=== PATIENT | female | born 1950 | race Hispanic/Latino ===

== ENCOUNTER 2018-08-17 10:23 | Inpatient (IN) | payer MEDICARE, OTHER ==
[2018-08-17] MEDS ORDERED: Sodium Chloride 0.9% 1,000 ML IV ONE (11:07)
[2018-08-17] MEDS ORDERED: Aspirin 325 mg EC Tablets PO STA (11:07)
[2018-08-17] MEDS ORDERED: Sodium Chloride 0.9% 1,000 ML ONE ×2 (11:20→13:50)
[2018-08-17] MEDS ORDERED: Aspirin 325 mg EC Tablets PO ONE (11:20)
[2018-08-17 11:21] LABS: BASO % 0.1 % (0.0-2.0); HEMOGLOBIN 13.9 g/dL (11.0-16.0); LYMPH # 1.2 K/uL (1.0-4.3); LYMPH % 8.5 % (20.0-40.0); MEAN CELL VOLUME 96.8 fL (81.0-99.0); MEAN CORPUSCULAR HEMOGLOBIN 33.3 pg (27.0-31.0); MEAN CORPUSCULAR HGB CONC 34.4 g/dL (33.0-37.0); MEAN PLATELET VOLUME 8.8 fL (7.2-11.7); MONO # 1.5 K/uL (0.0-0.8); MONO % 10.4 % (0.0-10.0); NEUT # 11.7 K/uL (1.8-7.0); PLATELET COUNT 287 K/uL (130-400); RBC 4.16 Mil/uL (3.80-5.20); RED CELL DISTRIBUTION WIDTH 12.9 % (11.5-14.5); WHITE BLOOD COUNT 14.4 K/uL (4.8-10.8)
--- NOTE | 2018-08-17 11:32 | RAD ---
Date of service: 08/17/2018 PROCEDURE: CHEST RADIOGRAPH, 1 VIEW HISTORY: chest pain COMPARISON: None available. FINDINGS: LUNGS: Clear. PLEURA: No pneumothorax or pleural fluid seen. CARDIOVASCULAR: Normal. OSSEOUS STRUCTURES: No significant abnormalities. VISUALIZED UPPER ABDOMEN: Normal. OTHER FINDINGS: None. IMPRESSION: No active disease.
[2018-08-17 11:35] LABS: INR 1.1; PROTHROMBIN TIME 11.7 SECONDS (9.7-12.2)
[2018-08-17 11:47] LABS: ALBUMIN 4.3 g/dL (3.5-5.0); EOSINOPHIL 1 % (0-4); LYMPHOCYTE 3 % (20-40); MONOCYTE 6 % (0-10); NEUTROPHIL 90 % (50-75); PLATELET ESTIMATE NORMAL (NORMAL); TOTAL CELLS COUNTED 100
[2018-08-17 11:52] LABS: CALCIUM 9.7 mg/dl (8.6-10.4)
[2018-08-17 12:04] LABS: SQUAMOUS EPITHIAL 47 /hpf (0-5); URINE BACTERIA RARE (<OCC); URINE BILIRUBIN NEGATIVE (NEGATIVE); URINE BLOOD 1+ (NEGATIVE); URINE CLARITY Hazy (Clear); URINE COLOR Amber (YELLOW); URINE GLUCOSE (UA) NORMAL (Normal); URINE LEUKOCYTE ESTERASE NEG Leu/uL (Negative); URINE PROTEIN 1+ mg/dL (NEGATIVE); URINE UROBILINOGEN NORMAL mg/dL (0.2-1.0)
[2018-08-17 12:18] LABS: CK-MB 9.38 ng/mL (0.0-3.38)
--- NOTE | 2018-08-17 12:31 | C.PDOC ---
History Of Present Illness 68 year old female presents to the ED for evaluation of right-sided chest pain for 4 days and associated lightheadedness. Patient notes feeling lightheaded for one week, she saw PMD Dr. Garcia, had an EKG with a low heart rate of 38 bpm. Sent by PMD to the ER. Denies fever, nausea, vomiting, and numbness or weakness. Time Seen by Provider: 08/17/18 10:39 Chief Complaint (Nursing): Dizziness/Lightheaded History Per: Patient History/Exam Limitations: no limitations Onset/Duration Of Symptoms: Days Current Symptoms Are (Timing): Still Present Past Medical History Reviewed: Historical Data, Nursing Documentation, Vital Signs Vital Signs: Last Vital Signs Temp 98.8 F 08/17/18 10:39 Pulse 47 L 08/17/18 10:39 Resp 16 08/17/18 10:39 BP 139/60 08/17/18 10:39 Pulse Ox 96 08/17/18 10:39 - Medical History PMH: HTN Denies: Chronic Kidney Disease Family History: States: Unknown Family Hx - Social History Hx Alcohol Use: No Hx Substance Use: No - Immunization History Hx Tetanus Toxoid Vaccination: No Hx Influenza Vaccination: Yes Hx Pneumococcal Vaccination: No Review Of Systems Constitutional: Negative for: Fever Cardiovascular: Positive for: Chest Pain (right-sided.) Gastrointestinal: Negative for: Nausea, Vomiting Neurological: Positive for: Other (light-headed.) Physical Exam - Physical Exam Appears: Well, Non-toxic, Other (pale. elderly.) Skin: Normal Color, Warm, Dry Head: Atraumatic, Normacephalic Eye(s): bilateral: Normal Inspection Oral Mucosa: Moist Neck: Normal ROM, Supple Chest: Symmetrical, No Deformity, No Tenderness, No Subcutaneous Emphysema Cardiovascular: Rhythm Regular, No Murmur, Other (bradycardia) Respiratory: Normal Breath Sounds, Decreased Breath Sounds, No Rales, No Rhonchi, No Wheezing Extremity: Normal ROM (x4), No Pedal Edema, No Deformity, No Swelling Neurological/Psych: Oriented x3, Normal Speech Gait: Steady ED Course And Treatment - Laboratory Results Result Diagrams: 08/17/18 11:17 08/17/18 11:17 ECG: Interpreted By Me, Viewed By Me (Dr Flores) ECG Rhythm: Junctional Rhythm ECG Interpretation: Abnormal Rate From EC (no priors for comparison) O2 Sat by Pulse Oximetry: 96 (RA) Pulse Ox Interpretation: Normal - Other Rad CXR X-Ray: Viewed By Me, Read By Radiologist Interpretation: FINDINGS: LUNGS: Clear. PLEURA: No pneumothorax or pleural fluid seen. CARDIOVASCULAR: Normal. OSSEOUS STRUCTURES: No significant abn ormalities. VISUALIZED UPPER ABDOMEN: Normal. OTHER FINDINGS: None. IMPRESSION: No active disease. Medical Decision Making Medical Decision Making: Impression: chest pain, bradycardia symptomatic Plan: --Blood sent. --Ecotrin. --CXR. --Cardia Monitor. --Urinalysis. case reviewed with Dr Flores who agreed with plan EKG shows junctional rhythm. CXR shows no active disease. 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 Labs pending Lab reports critical value of elevated troponin >8. Inform attending of finding who advised ICU and admission Contact Dr Glass, hospitalist for admission. Contact Dr Last ICU for consult. 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 - Scribe Statement The provider has reviewed the documentation as recorded by the Scribe (Betsy Carrion) All medical record entries made by the Scribe were at my direction and personally dictated by me. I have reviewed the chart and agree that the record accurately reflects my personal performance of the history, physical exam, medical decision making, and the department course for this patient. I have also personally directed, reviewed, and agree with the discharge instructions and disposition. Decision To Admit - Pt Status Changed To: Hospital Disposition Of: Inpatient - Admit Certification Admit to Inpatient:: After my assessment, the patient will require hospitalization for at least two midnights. This is because of the severity of symptoms shown, intensity of services needed, and/or the medical risk in this patient being treated as an outpatient. - InPatient: Physician Admission Certification: I certify that this patient requires 2 or more midnights of care for the following reason:: patient with several days of chest pain and now has symptomatic bradycardia. labs and findings consistent with NSTEMI - . Bed Request Type: Telemetry Admitting Physician: Victor Hugo Glass Patient Diagnosis: Bradycardia, Chest pain, NSTEMI (non-ST elevated myocardial infarction)
[2018-08-17 12:45] LABS: ALB/GLOB RATIO 1.4 (1.0-2.1)
[2018-08-17 13:03] LABS: TROPONIN I 8.31 ng/mL (0.00-0.120)
[2018-08-17] MEDS ORDERED: Heparin 25,000units in D5W 250 ML IV ONE ×2 (13:15→14:06)
[2018-08-17] MEDS ORDERED: Sodium Chloride 0.9% 1,000 ML IV SCH ×2 (13:45→14:05)
--- NOTE | 2018-08-17 14:31 | CP.PCM.HP ---
History of Present Illness - History of Present Illness History of Present Illness: Patient was seen and examined by me in the ER bed 10. Family member was at bedside, patient was ok with family participating in discussion. This is a 68 yo F who comes to the hospital with the chief complaint of chest pain, lightheadedness, and dizziness. The chest pain began on Wednesday08/13/2018 and by Wednesday she was having episodes of lightheadness and dizziness. Reportedly the patient was lifting heavy objects back and forth and she normally does not exert herself this much. This light headedness and dizzines continued into the week and she saw her primary care physician yesterday on 08/16/2018 where she had a 12-lead EKG showing very significant bradycardia. She was urged to go to the emergency room and she came today to [facility] and the EKG was in the mid 40s sinus bradycardia. There was signifigant T wave flattening noted. There was no ST depression or elevation. In the ER the first troponin was 8.1 and she was noted to have a systolic BP in the mid 90s. She was reporting chest pain however it was on her right chest near her right axilla and this was reproducible on exam. She was not reporting lightheaded or dizzy when I saw the patient but reported she was earlier in the day. We gave orders to start a heparin ggt, also Plavix 300 now and a large dose of Crestor 20 now. She had ASA 325 and also IVF @ 80 cc. We are getting a stat echo as well. At this time it seems to me she exerted/stressed herself quite a bit on Wednesday until she developed an ME and possibly the lightheadedness and dizziness is from having bradycardia or a low EF following the ME. Reguardless I spoke with ICU and cardiology Medications: Valsartan, Atenolol, HCTZ Social HX: Heavy smoker since age 14 - She could not give me a clear answer as to how many packs a day. Denied alcohol and denied drugs. Present on Admission - Present on Admission Any Indicators Present on Admission: Yes History of DVT/PE: No History of Uncontrolled Diabetes: No Urinary Catheter: No Decubitus Ulcer Present: No Review of Systems - EENT Eyes: absent: Blind Spots, Blurred Vision, Change in Vision Ears: absent: Decreased Hearing, Ear Discharge, Ear Pain - Cardiovascular Cardiovascular: Chest Pain, Chest Pain with Activity, Lightheadedness, Slow Heart Rate - Respiratory Respiratory: Dyspnea on Exertion - Gastrointestinal Gastrointestinal: absent: Abdominal Pain, Belching, Bloating - Genitourinary Genitourinary: absent: Change in Urinary Stream, Difficulty Urinating, Dysuria - Musculoskeletal Musculoskeletal: Radiating Pain into Limb - Neurological Neurological: absent: Abnormal Gait, Abnormal Hearing, Abnormal Movements - Psychiatric Psychiatric: absent: Anxiety, Auditory Hallucinations, Behavioral Changes Past Patient History - Past Social History Smoking Status: Heavy Smoker > 10 Cigarettes Daily - CARDIAC Hx Hypertension: Yes - PULMONARY Hx Respiratory Disorders: No - NEUROLOGICAL Hx Neurological Disorder: No - HEENT Hx HEENT Problems: No - RENAL Hx Chronic Kidney Disease: No - ENDOCRINE/METABOLIC Hx Endocrine Disorders: No - HEMATOLOGICAL/ONCOLOGICAL Hx Blood Disorders: No - INTEGUMENTARY Hx Dermatological Problems: No - MUSCULOSKELETAL/RHEUMATOLOGICAL Hx Musculoskeletal Disorders: No - GASTROINTESTINAL Hx Gastrointestinal Disorders: No - GENITOURINARY/GYNECOLOGICAL Hx Genitourinary Disorders: No - PSYCHIATRIC Hx Substance Use: No - SURGICAL HISTORY Hx Surgeries: No - ANESTHESIA Hx Anesthesia: No Meds Allergies/Adverse Reactions: Allergies Allergy/AdvReac Type Severity Reaction Status Date / Time No Known Allergies Allergy Verified 08/17/18 10:46 Physical Exam - Constitutional Appears: Older Than Stated Age - Head Exam Head Exam: NORMAL INSPECTION - Eye Exam Eye Exam: EOMI, Normal appearance - ENT Exam ENT Exam: Mucous Membranes Moist - Cardiovascular Exam Cardiovascular Exam: REGULAR RHYTHM - GI/Abdominal Exam GI & Abdominal Exam: Normal Bowel Sounds, Soft - Neurological Exam Neurological exam: Alert, CN II-XII Intact, Oriented x3 - Psychiatric Exam Psychiatric exam: Flat Affect - Skin Skin Exam: Normal Color, Warm Results - Vital Signs Recent Vital Signs: Last Vital Signs Temp 98.8 F 08/17/18 10:39 Pulse 42 L 08/17/18 12:48 Resp 18 08/17/18 12:48 BP 111/43 L 08/17/18 12:48 Pulse Ox 96 08/17/18 14:15 - Labs Result Diagrams: 08/17/18 11:17 08/17/18 11:17 Labs: Laboratory Results - last 24 hr 08/17/18 08/17/18 08/17/18 10:30 11:17 11:17 WBC 14.4 H RBC 4.16 Hgb 13.9 Hct 40.3 MCV 96.8 MCH 33.3 H MCHC 34.4 RDW 12.9 Plt Count 287 MPV 8.8 Neut % (Auto) 81.0 H Lymph % (Auto) 8.5 L [place] % (Auto) 10.4 H Eos % (Auto) 0.0 Baso % (Auto) 0.1 Neut # (Auto) 11.7 H Lymph # (Auto) 1.2 [place] # (Auto) 1.5 H Eos # (Auto) 0.0 Baso # (Auto) 0.0 Neutrophils % (Manual) 90 H Lymphocytes % (Manual) 3 L Monocytes % (Manual) 6 Eosinophils % (Manual) 1 Platelet Estimate Normal RBC Morphology Normal PT INR APTT Sodium 142 Potassium 4.5 Chloride 105 Carbon Dioxide 22 Anion Gap 19 BUN 51 H Creatinine 1.9 H Est GFR ( Amer) 32 Est GFR (Non-Af Amer) 26 POC Glucose (mg/dL) 147 H Random Glucose 145 H Calcium 9.7 Total Bilirubin 0.8 AST 96 H ALT 95 H Alkaline Phosphatase 173 H Total Creatine Kinase 173 H CK-MB (Mass) 9.38 H Troponin I 8.3100 H* NT-Pro-B Natriuret Pep 8310 H Total Protein 7.4 Albumin 4.3 Globulin 3.1 Albumin/Globulin Ratio 1.4 Triglycerides 127 Cholesterol 152 LDL Cholesterol Direct 69 HDL Cholesterol 57 Urine Color Urine Clarity Urine pH Ur Specific [place] Urine Protein Urine Glucose (UA) Urine Ketones Urine Blood Urine Nitrate Urine Bilirubin Urine Urobilinogen Ur Leukocyte Esterase Urine WBC (Auto) Urine RBC (Auto) Ur Squamous Epith Cells Urine Bacteria 08/17/18 08/17/18 11:17 11:54 WBC RBC Hgb Hct MCV MCH MCHC RDW Plt Count MPV Neut % (Auto) Lymph % (Auto) [place] % (Auto) Eos % (Auto) Baso % (Auto) Neut # (Auto) Lymph # (Auto) [place] # (Auto) Eos # (Auto) Baso # (Auto) Neutrophils % (Manual) Lymphocytes % (Manual) Monocytes % (Manual) Eosinophils % (Manual) Platelet Estimate RBC Morphology PT 11.7 INR 1.1 APTT 33 Sodium Potassium Chloride Carbon Dioxide Anion Gap BUN Creatinine Est GFR ( Amer) Est GFR (Non-Af Amer) POC Glucose (mg/dL) Random Glucose Calcium Total Bilirubin AST ALT Alkaline Phosphatase Total Creatine Kinase CK-MB (Mass) Troponin I NT-Pro-B Natriuret Pep Total Protein Albumin Globulin Albumin/Globulin Ratio Triglycerides Cholesterol LDL Cholesterol Direct HDL Cholesterol Urine Color Lizzie Urine Clarity Hazy Urine pH 5.0 Ur Specific [place] 1.023 Urine Protein 1+ H Urine Glucose (UA) Normal Urine Ketones Negative Urine Blood 1+ H Urine Nitrate Negative Urine Bilirubin Negative Urine Urobilinogen Normal Ur Leukocyte Esterase Neg Urine WBC (Auto) 2 Urine RBC (Auto) 2 Ur Squamous Epith Cells 47 H Urine Bacteria Rare - EKG Data EKG Interpreted by: Myself Rate: Bradycardia Assessment & Plan - Assessment and Plan (Free Text) Assessment: 1 NSTEMI- Acute ME 08/17: First troponin 8.1, EKG showing severe bradycardia and Twvae inversions. started on heparin ggt, Plavix loading 300 and then 75 daily, ASA 325 already and 81 daily. Large dose of statin given Spoke with cardiology and per cardiololgy patient should be NPO except for medications. There will be additional troponins q3hrs starting at 4PM, repeat EKG A stat echo is pending at this time. Slow IVF at this moment. Repeat CXRAY tommow in case of fluid overload. 2 Bradycardia, maybe secondary to the ME patient has 08/17: For now place temporary pacer pads/zol pads on patient. Repeat EKG For now not symptompatic however previously was. Have atropine nearby bedside 3 Acute vs chronic kidney disease 08/17: this may make giving contrast complicated as the creatine is 1.9 Started on slow IVF for now. Consult nephrology 3 Hx of smoking 08/17: smoking since age 13 or 14.
[2018-08-17] MEDS ORDERED: Heparin25000 units/250ml 1/2NS 25,000 UNITS/250 ML BAG IV ONE (14:33)
--- NOTE | 2018-08-17 15:23 | CP.PCM.CON ---
<Desire Gill L - Last Filed: 08/17/18 17:01> History of Present Illness - History of Present Illness History of Present Illness: Patient is a 68 year old female with past medical history of HTN presenting with chief complaint of chest pain that began approximately 4 days ago. She states that at first the pain was an intermittent dull ache located on her right anterior chest wall. However over the past two days the pain has been constant, accompanied by dizziness and shortness of breath. She was prompted by her PMD Dr. Ramos to come to the ED for evaluation of bradycardia on EKG. In the ED she was found to have severe bradycardia with HR in 40s along with elevated troponins and so ICU was consulted. Patient was given 325 mg aspirin, 300 mg plavix, 5000 units heparin, 20 mg rosuvastatin, 1 L bolus NS. Currently, she is asymptomatic. Denies fevers, chills, abdominal pain, changes in bowel movements, dysuria. PMH: HTN PSH: none SHx: Smokes approximately 10 cigarettes for past 50 years. Denies alcohol or illicit drug use. FHx: Father (lung cancer) Allergies: NKDA PMD: Dr. Garcia Review of Systems - Review of Systems All systems: reviewed and no additional remarkable complaints except (as stated in HPI) Past Patient History - Past Social History Smoking Status: Heavy Smoker > 10 Cigarettes Daily - CARDIAC Hx Hypertension: Yes - PULMONARY Hx Respiratory Disorders: No - NEUROLOGICAL Hx Neurological Disorder: No - HEENT Hx HEENT Problems: No - RENAL Hx Chronic Kidney Disease: No - ENDOCRINE/METABOLIC Hx Endocrine Disorders: No - HEMATOLOGICAL/ONCOLOGICAL Hx Blood Disorders: No - INTEGUMENTARY Hx Dermatological Problems: No - MUSCULOSKELETAL/RHEUMATOLOGICAL Hx Musculoskeletal Disorders: No - GASTROINTESTINAL Hx Gastrointestinal Disorders: No - GENITOURINARY/GYNECOLOGICAL Hx Genitourinary Disorders: No - PSYCHIATRIC Hx Substance Use: No - SURGICAL HISTORY Hx Surgeries: No - ANESTHESIA Hx Anesthesia: No Meds Allergies/Adverse Reactions: Allergies Allergy/AdvReac Type Severity Reaction Status Date / Time No Known Allergies Allergy Verified 08/17/18 10:46 - Medications Medications: Current Medications Aspirin (Aspirin Chewable) 81 mg PO DAILY SARAH Clopidogrel Bisulfate (Plavix) 75 mg PO DAILY SARAH Famotidine (Pepcid) 20 mg IVP DAILY [facility] Sodium Chloride (Sodium Chloride 0.9%) 1,000 mls @ 100 mls/hr IV .Q10H SARAH Heparin Sodium/Sodium Chloride (Heparin 20975 Units/250ml 1/2 Normal Saline) 25,000 units in 250 mls @ 6.151 mls/hr IV .Q24H ONE; Protocol Stop: 08/18/18 14:32 Rosuvastatin Calcium (Crestor) 20 mg PO HS SARAH Physical Exam - Constitutional Appears: Non-toxic, No Acute Distress - Head Exam Head Exam: ATRAUMATIC, NORMOCEPHALIC - Eye Exam Eye Exam: EOMI, Normal appearance, PERRL - ENT Exam ENT Exam: Mucous Membranes Moist - Neck Exam Neck exam: Positive for: Normal Inspection - Respiratory Exam Respiratory Exam: Clear to Auscultation Bilateral, NORMAL BREATHING PATTERN. absent: Rales, Rhonchi, Wheezes, Respiratory Distress - Cardiovascular Exam Cardiovascular Exam: Bradycardia, REGULAR RHYTHM, +S1, +S2 - GI/Abdominal Exam GI & Abdominal Exam: Normal Bowel Sounds, Soft. absent: Distended, Firm, Guarding, Rebound, Rigid, Tenderness - Extremities Exam Extremities exam: Positive for: full ROM, normal capillary refill, normal inspection, pedal pulses present. Negative for: calf tenderness, joint swelling, pedal edema, tenderness - Neurological Exam Neurological exam: Alert, CN II-XII Intact, Oriented x3 - Psychiatric Exam Psychiatric exam: Normal Affect, Normal Mood - Skin Skin Exam: Dry, Intact, Normal Color, Warm Results - Vital Signs Recent Vital Signs: Last Vital Signs Temp 98.8 F 08/17/18 10:39 Pulse 42 L 08/17/18 12:48 Resp 18 08/17/18 12:48 BP 111/43 L 08/17/18 12:48 Pulse Ox 96 08/17/18 14:31 - Labs Result Diagrams: 08/17/18 11:17 08/17/18 11:17 Labs: Laboratory Results - last 24 hr 08/17/18 08/17/18 08/17/18 10:30 11:17 11:17 WBC 14.4 H RBC 4.16 Hgb 13.9 Hct 40.3 MCV 96.8 MCH 33.3 H MCHC 34.4 RDW 12.9 Plt Count 287 MPV 8.8 Neut % (Auto) 81.0 H Lymph % (Auto) 8.5 L Burnett % (Auto) 10.4 H Eos % (Auto) 0.0 Baso % (Auto) 0.1 Neut # (Auto) 11.7 H Lymph # (Auto) 1.2 Burnett # (Auto) 1.5 H Eos # (Auto) 0.0 Baso # (Auto) 0.0 Neutrophils % (Manual) 90 H Lymphocytes % (Manual) 3 L Monocytes % (Manual) 6 Eosinophils % (Manual) 1 Platelet Estimate Normal RBC Morphology Normal PT INR APTT Sodium 142 Potassium 4.5 Chloride 105 Carbon Dioxide 22 Anion Gap 19 BUN 51 H Creatinine 1.9 H Est GFR ( Amer) 32 Est GFR (Non-Af Amer) 26 POC Glucose (mg/dL) 147 H Random Glucose 145 H Calcium 9.7 Total Bilirubin 0.8 AST 96 H ALT 95 H Alkaline Phosphatase 173 H Total Creatine Kinase 173 H CK-MB (Mass) 9.38 H Troponin I 8.3100 H* NT-Pro-B Natriuret Pep 8310 H Total Protein 7.4 Albumin 4.3 Globulin 3.1 Albumin/Globulin Ratio 1.4 Triglycerides 127 Cholesterol 152 LDL Cholesterol Direct 69 HDL Cholesterol 57 Urine Color Urine Clarity Urine pH Ur Specific [place] Urine Protein Urine Glucose (UA) Urine Ketones Urine Blood Urine Nitrate Urine Bilirubin Urine Urobilinogen Ur Leukocyte Esterase Urine WBC (Auto) Urine RBC (Auto) Ur Squamous Epith Cells Urine Bacteria 08/17/18 08/17/18 11:17 11:54 WBC RBC Hgb Hct MCV MCH MCHC RDW Plt Count MPV Neut % (Auto) Lymph % (Auto) Burnett % (Auto) Eos % (Auto) Baso % (Auto) Neut # (Auto) Lymph # (Auto) Burnett # (Auto) Eos # (Auto) Baso # (Auto) Neutrophils % (Manual) Lymphocytes % (Manual) Monocytes % (Manual) Eosinophils % (Manual) Platelet Estimate RBC Morphology PT 11.7 INR 1.1 APTT 33 Sodium Potassium Chloride Carbon Dioxide Anion Gap BUN Creatinine Est GFR ( Amer) Est GFR (Non-Af Amer) POC Glucose (mg/dL) Random Glucose Calcium Total Bilirubin AST ALT Alkaline Phosphatase Total Creatine Kinase CK-MB (Mass) Troponin I NT-Pro-B Natriuret Pep Total Protein Albumin Globulin Albumin/Globulin Ratio Triglycerides Cholesterol LDL Cholesterol Direct HDL Cholesterol Urine Color Lizzie Urine Clarity Hazy Urine pH 5.0 Ur Specific [place] 1.023 Urine Protein 1+ H Urine Glucose (UA) Normal Urine Ketones Negative Urine Blood 1+ H Urine Nitrate Negative Urine Bilirubin Negative Urine Urobilinogen Normal Ur Leukocyte Esterase Neg Urine WBC (Auto) 2 Urine RBC (Auto) 2 Ur Squamous Epith Cells 47 H Urine Bacteria Rare Assessment & Plan - Assessment and Plan (Free Text) Assessment: Patient is a 68 year old female with past medical history of HTN presenting with chief complaint of chest pain that began approximately 4 days ago, was found to have severe bradycardia with HR in 40s and elevated troponins, now admitted to ICU for workup and management of NSTEMI. Plan: Neuro: - AAOx3 - Maintain normothermia Pulm: - CXR shows no active disease - Nasal cannula - Maintain SpO2>92% CV: - Currently hemodynamically stable, no pressors required at this time - Troponin 8.31, BNP 8310 - EKG shows bradycardia and T wave inversions - Lipid panel within normal limits - Cardiology Dr. Degroot consulted. Appreciate recs. - In ED given heparin bolus, aspirin, plavix, rosuvastatin, 1L NS - Continue aspirin 81 mg PO daily, plavix 75 mg PO daily, rosuvastatin 20 mg PO HS - Followup ECHO, TESSA panels, repeat EKGs GI: - NPO - Pepcid 20 mg IV daily Renal: - ARF - Cr 1.9 - UA 1+ protein, 1+ blood - Nephrology Dr. Kaplan consulted. Appreciate recs. - Monitor I and O - NS 100 ccs/hr Endo: - Maintain euglycemia Heme: - Monitor H/H ID: - Afebrile, WBC count 14.4 PPX: Pepcid 20 mg IV daily, Case seen and reviewed with Dr. Berhane Gill PGY-1 - Date & Time Date: 08/17/18 Time: 15:23 <Jose Last - Last Filed: 08/17/18 17:59> Meds - Medications Medications: Current Medications Aspirin (Aspirin Chewable) 81 mg PO DAILY SARAH Clopidogrel Bisulfate (Plavix) 75 mg PO DAILY SARAH Famotidine (Pepcid) 20 mg IVP DAILY SARAH Sodium Chloride (Sodium Chloride 0.9%) 1,000 mls @ 100 mls/hr IV .Q10H SARAH Last Admin: 08/17/18 15:27 Dose: 100 mls/hr Heparin Sodium/Sodium Chloride (Heparin 41553 Units/250ml 1/2 Normal Saline) 25,000 units in 250 mls @ 6.151 mls/hr IV .Q24H ONE; Protocol Stop: 08/18/18 14:32 Last Admin: 08/17/18 15:27 Dose: 12 units/kg/hr, 6.151 mls/hr Rosuvastatin Calcium (Crestor) 20 mg PO HS SARAH Results - Vital Signs Recent Vital Signs: Last Vital Signs Temp 98.3 F 08/17/18 15:29 Pulse 44 L 08/17/18 16:22 Resp 15 08/17/18 16:22 BP 107/40 L 08/17/18 16:22 Pulse Ox 96 08/17/18 16:53 - Labs Result Diagrams: 08/17/18 11:17 08/17/18 11:17 Labs: Laboratory Results - last 24 hr 08/17/18 08/17/18 08/17/18 10:30 11:17 11:17 WBC 14.4 H RBC 4.16 Hgb 13.9 Hct 40.3 MCV 96.8 MCH 33.3 H MCHC 34.4 RDW 12.9 Plt Count 287 MPV 8.8 Neut % (Auto) 81.0 H Lymph % (Auto) 8.5 L Burnett % (Auto) 10.4 H Eos % (Auto) 0.0 Baso % (Auto) 0.1 Neut # (Auto) 11.7 H Lymph # (Auto) 1.2 Burnett # (Auto) 1.5 H Eos # (Auto) 0.0 Baso # (Auto) 0.0 Neutrophils % (Manual) 90 H Lymphocytes % (Manual) 3 L Monocytes % (Manual) 6 Eosinophils % (Manual) 1 Platelet Estimate Normal RBC Morphology Normal PT INR APTT Sodium 142 Potassium 4.5 Chloride 105 Carbon Dioxide 22 Anion Gap 19 BUN 51 H Creatinine 1.9 H Est GFR ( Amer) 32 Est GFR (Non-Af Amer) 26 POC Glucose (mg/dL) 147 H Random Glucose 145 H Calcium 9.7 Total Bilirubin 0.8 AST 96 H ALT 95 H Alkaline Phosphatase 173 H Total Creatine Kinase 173 H CK-MB (Mass) 9.38 H Troponin I 8.3100 H* NT-Pro-B Natriuret Pep 8310 H Total Protein 7.4 Albumin 4.3 Globulin 3.1 Albumin/Globulin Ratio 1.4 Triglycerides 127 Cholesterol 152 LDL Cholesterol Direct 69 HDL Cholesterol 57 Urine Color Urine Clarity Urine pH Ur Specific [place] Urine Protein Urine Glucose (UA) Urine Ketones Urine Blood Urine Nitrate Urine Bilirubin Urine Urobilinogen Ur Leukocyte Esterase Urine WBC (Auto) Urine RBC (Auto) Ur Squamous Epith Cells Urine Bacteria Urine Opiates Screen Urine Methadone Screen Ur Barbiturates Screen Ur Phencyclidine Scrn Ur Amphetamines Screen U Benzodiazepines Scrn U Oth Cocaine Metabols U Cannabinoids Screen 08/17/18 08/17/18 08/17/18 11:17 11:54 15:22 WBC RBC Hgb Hct MCV MCH MCHC RDW Plt Count MPV Neut % (Auto) Lymph % (Auto) Burnett % (Auto) Eos % (Auto) Baso % (Auto) Neut # (Auto) Lymph # (Auto) Burnett # (Auto) Eos # (Auto) Baso # (Auto) Neutrophils % (Manual) Lymphocytes % (Manual) Monocytes % (Manual) Eosinophils % (Manual) Platelet Estimate RBC Morphology PT 11.7 INR 1.1 APTT 33 Sodium Potassium Chloride Carbon Dioxide Anion Gap BUN Creatinine Est GFR ( Amer) Est GFR (Non-Af Amer) POC Glucose (mg/dL) Random Glucose Calcium Total Bilirubin AST ALT Alkaline Phosphatase Total Creatine Kinase CK-MB (Mass) Troponin I NT-Pro-B Natriuret Pep Total Protein Albumin Globulin Albumin/Globulin Ratio Triglycerides Cholesterol LDL Cholesterol Direct HDL Cholesterol Urine Color Lizzie Urine Clarity Hazy Urine pH 5.0 Ur Specific [place] 1.023 Urine Protein 1+ H Urine Glucose (UA) Normal Urine Ketones Negative Urine Blood 1+ H Urine Nitrate Negative Urine Bilirubin Negative Urine Urobilinogen Normal Ur Leukocyte Esterase Neg Urine WBC (Auto) 2 Urine RBC (Auto) 2 Ur Squamous Epith Cells 47 H Urine Bacteria Rare Urine Opiates Screen Negative Urine Methadone Screen Negative Ur Barbiturates Screen Negative Ur Phencyclidine Scrn Negative Ur Amphetamines Screen Negative U Benzodiazepines Scrn Negative U Oth Cocaine Metabols Negative U Cannabinoids Screen Negative 08/17/18 16:41 WBC RBC Hgb Hct MCV MCH MCHC RDW Plt Count MPV Neut % (Auto) Lymph % (Auto) Burnett % (Auto) Eos % (Auto) Baso % (Auto) Neut # (Auto) Lymph # (Auto) Burnett # (Auto) Eos # (Auto) Baso # (Auto) Neutrophils % (Manual) Lymphocytes % (Manual) Monocytes % (Manual) Eosinophils % (Manual) Platelet Estimate RBC Morphology PT INR APTT Sodium Potassium Chloride Carbon Dioxide Anion Gap BUN Creatinine Est GFR ( Amer) Est GFR (Non-Af Amer) POC Glucose (mg/dL) Random Glucose Calcium Total Bilirubin AST ALT Alkaline Phosphatase Total Creatine Kinase 120 CK-MB (Mass) 6.24 H Troponin I 7.8000 H* NT-Pro-B Natriuret Pep Total Protein Albumin Globulin Albumin/Globulin Ratio Triglycerides Cholesterol LDL Cholesterol Direct HDL Cholesterol Urine Color Urine Clarity Urine pH Ur Specific [place] Urine Protein Urine Glucose (UA) Urine Ketones Urine Blood Urine Nitrate Urine Bilirubin Urine Urobilinogen Ur Leukocyte Esterase Urine WBC (Auto) Urine RBC (Auto) Ur Squamous Epith Cells Urine Bacteria Urine Opiates Screen Urine Methadone Screen Ur Barbiturates Screen Ur Phencyclidine Scrn Ur Amphetamines Screen U Benzodiazepines Scrn U Oth Cocaine Metabols U Cannabinoids Screen Attending/Attestation - Attestation I have personally seen and examined this patient.: Yes I have fully participated in the care of the patient.: Yes I have reviewed all pertinent clinical information: Yes Notes (Text): 08/17/18 17:58 patient seen and examined 68-year-old female admitted to intensive care unit with non-ST elevation AZ and bradycardia Continue anticoagulation Possible cardiac cath Echocardiogram
[2018-08-17 16:06] LABS: BARBITURATES, UR NEGATIVE (NEGATIVE); BENZODIAZEPINES, UR NEGATIVE (NEGATIVE); OPIATES, UR NEGATIVE (NEGATIVE); PHENCYCLIDINE, UR NEGATIVE (NEGATIVE)
[2018-08-17] MEDS ORDERED: Morphine 4 MG/ML VIAL IV STA (17:20)
[2018-08-17 17:34] LABS: CK-MB 6.24 ng/mL (0.0-3.38); TROPONIN I 7.8 ng/mL (0.00-0.120)
[2018-08-17] MEDS ORDERED: Lidocaine 2% PF (10 ml) Amp ONE (18:11)
[2018-08-17] MEDS ORDERED: Iodixanol 320 MG/ML 100 ML BOTTLE IV ONE (18:12)
[2018-08-17] MEDS ORDERED: Midazolam 2 MG/2 ML VIAL ONE (18:23)
--- NOTE | 2018-08-17 19:39 | CP.PCM.PN ---
Subjective - Date & Time of Evaluation Date of Evaluation: 08/17/18 Time of Evaluation: 19:34 - Subjective Subjective: Patient with Non STEMI S/P Cath and TVP 1. L Main: Patent 2. LAD/Diags: Patent 3. L Cx/OMs: Proximal L Cx 50% 4. RCA: Dominant, Proximal 100%, Left to right collaterals 5. LVEDP: 22, LV angio not done due to elevated Creatinine Follow BUN/CR Possible PCI tomorrow after Renal eval Resume Heparin after holding for 4 hours (Resume at 11pm tonight) Continue ASA, Plavix, Statins Smoking cessation Objective - Vital Signs/Intake and Output Vital Signs (last 24 hours): Temp Pulse Resp BP Pulse Ox 98.3 F 41 L 23 90/34 L 96 08/17/18 16:00 08/17/18 17:24 08/17/18 17:24 08/17/18 17:24 08/17/18 16:53 Intake and Output: 08/17/18 08/18/18 18:59 06:59 Intake Total 318.3 Balance 318.3 - Medications Medications: Current Medications Aspirin (Aspirin Chewable) 81 mg PO DAILY SARAH Clopidogrel Bisulfate (Plavix) 75 mg PO DAILY SARAH Famotidine (Pepcid) 20 mg IVP DAILY [facility] Heparin Sodium/Sodium Chloride (Heparin 12329 Units/250ml 1/2 Normal Saline) 25,000 units in 250 mls @ 6.151 mls/hr IV .Q24H ONE; Protocol Stop: 08/18/18 14:32 Last Admin: 08/17/18 15:27 Dose: 12 units/kg/hr, 6.151 mls/hr Sodium Chloride (Sodium Chloride 0.9%) 1,000 mls @ 80 mls/hr IV .[id number] SARAH Rosuvastatin Calcium (Crestor) 20 mg PO HS SARAH - Labs Labs: 08/17/18 11:17 08/17/18 11:17 PT 11.7 SECONDS (9.7-12.2) 08/17/18 11:17 INR 1.1 08/17/18 11:17 APTT 33 SECONDS (21-34) 08/17/18 11:17
[2018-08-17] MEDS: Sodium Chloride 0.9% 1,000 ML IV SCH (19:50)
--- NOTE | 2018-08-17 22:33 | CARD ---
APPROVED REPORT Date of service: 08/17/2018 EXAM: Two-dimensional and M-mode echocardiogram with Doppler and color Doppler. Other Information Quality : GoodRhythm : INDICATION Dizziness and Vertigo Non STEMI 2D DIMENSIONS IVSd1.0 (0.7-1.1cm)LVDd3.7 (3.9-5.9cm) PWd0.9 (0.7-1.1cm)LA [id number] (18-58mL) LVDs1.8 (2.5-4.0cm)FS (%) 50.3 % LVEF (%)82.3 (>50%)LVEF (Montes's)64.66 % M-Mode DIMENSIONS Left Atrium (MM)3.53 (2.5-4.0cm)IVSd0.65 (0.7-1.1cm) Aortic Root2.87 (2.2-3.7cm)LVDd3.98 (4.0-5.6cm) Aortic Cusp Exc.2.22 (1.5-2.0cm)PWd0.74 (0.7-1.1cm) FS (%) 47 %LVDs2.13 (2.0-3.8cm) LVEF (%)70 (>50%) Mitral Valve MV E Bibrpmtq14.5cm/sE/A ratio0.0 TDI Lateral E' Peak V8.03cm/sMedial E' Peak V7.06cm/sE/Lateral E'11.9 E/Medial E'13.5 Tricuspid Valve TR Peak Riqactit386wo/sTR Peak Gr.[id number] LEFT VENTRICLE The left ventricle is normal size. There is normal left ventricular wall thickness. Left ventricle systolic function is normal. The Ejection Fraction is 65-70%. There is normal LV segmental wall motion. The left ventricular diastolic function is normal. RIGHT VENTRICLE The right ventricle is normal size. There is normal right ventricular wall thickness. The right ventricular systolic function is normal. ATRIA The left atrium size is normal. The right atrium size is normal. The discontinuity of the interatrial septum is suggestive of an atrial septal defect. AORTIC VALVE The aortic valve is normal in structure. No aortic regurgitation is present. There is no aortic valvular stenosis. There is no aortic valvular vegetation. MITRAL VALVE The mitral valve is normal in structure. There is no evidence of mitral valve prolapse. There is no mitral valve stenosis. Mitral regurgitation is mild. TRICUSPID VALVE The tricuspid valve is normal in structure. There is mild tricuspid regurgitation. Right ventricular systolic pressure is estimated at less than 30 mmHg. There is no pulmonary hypertension. PULMONIC VALVE The pulmonic valve is not well visualized. There is no pulmonic valvular regurgitation. GREAT VESSELS The aortic root is normal in size. PERICARDIAL EFFUSION There is no significant pericardial effusion. <Conclusion> Left ventricle systolic function is normal. The Ejection Fraction is 65-70%. No aortic regurgitation is present. Mitral regurgitation is mild. There is mild tricuspid regurgitation. There is no pulmonary hypertension. There is no pulmonic valvular regurgitation. The discontinuity of the interatrial septum is suggestive of an atrial septal defect. Suggest JOEY with bubble study.
--- NOTE | 2018-08-18 02:28 | CARDCATH ---
PROCEDURE DATE: 08/17/2018 PROCEDURES: 1. Left heart catheterization and coronary angiogram. 2. Transvenous pacemaker placement. CLINICAL INDICATIONS: 1. Chest pain. 2. Symptomatic bradycardia. 3. [id number] myocardial infarction. 4. Coronary artery disease. 5. Hypertension. 6. Hyperlipidemia. 7. Chronic kidney disease. REFERRING PHYSICIAN: Victor Hugo Glass DO PERFORMING PHYSICIAN: Familia Degroot MD DESCRIPTION OF PROCEDURE: After informed consent, the patient was prepped and draped in the usual sterile fashion. Lidocaine 2% was given in the right groin for local anesthesia. Using micropuncture technique, a 6-Bermudian sheath was introduced into right common femoral artery. A 7-Bermudian sheath was introduced into the right common femoral artery. Due to symptomatic bradycardia and low heart rate, transvenous pacemaker placed through the common femoral vein. A 6-B[place]ud[place] JL4 diagnostic catheter was engaged into the left main coronary artery. Contrast injected, and left coronary angiogram was done. Then, the catheter was exchanged to 6-[place]ud[place] JR4 diagnostic catheter. The catheter was crossed into left ventricle across the aortic valve. LV end-diastolic pressure was measured. No contrast injected into LV due to chronic kidney disease. Then, the catheter was pulled back across the aortic valve. Gradient across the aortic valve was measured. Then, the same catheter was engaged into right coronary artery. Contrast injected and right coronary angiogram was done. The patient tolerated the procedure well. Radiological supervision and interpretation of the coronary imaging was done. FINDINGS: 1. Left main coronary artery is long and patent. 2. LAD is patent. D1 diagonal branch has a 60% proximal stenosis. 3. Left circumflex and obtuse marginal branches are patent. 4. Right coronary artery is large and dominant. Proximal right coronary artery is 100% occluded. There is a long lesion from proximal to distal RCA. RCA is receiving collaterals from the left circulation system. IMPRESSION: 1. Single-vessel coronary artery disease, total occlusion of right coronary artery. 2. Symptomatic bradycardia secondary to ischemic heart disease. PLAN: The patient will be transferred to intensive care unit for further management. The patient will be on IV heparin, aspirin, Plavix, and statins. IV hydration and monitor kidney function. Nephrology on consult. Possible PCI tomorrow or day after tomorrow depending upon the renal function. Familia Degroot MD [facility] # [id number]
[2018-08-18] MEDS: Sodium Chloride 0.9% 1,000 ML IV SCH ×3 (02:29→21:00)
[2018-08-18 06:21] LABS: BASO % 0.4 % (0.0-2.0); EOS % 0.1 % (0.0-4.0); LYMPH % 18.8 % (20.0-40.0); MEAN CELL VOLUME 98.2 fL (81.0-99.0); MEAN CORPUSCULAR HEMOGLOBIN 33.7 pg (27.0-31.0); MEAN CORPUSCULAR HGB CONC 34.3 g/dL (33.0-37.0); MEAN PLATELET VOLUME 9.2 fL (7.2-11.7); MONO # 1.3 K/uL (0.0-0.8); MONO % 12.9 % (0.0-10.0); NEUT # 7.1 K/uL (1.8-7.0); NEUT % 67.8 % (50.0-75.0); NRBC % 0.1 % (0.0-2.0); RBC 3.55 Mil/uL (3.80-5.20); RED CELL DISTRIBUTION WIDTH 12.8 % (11.5-14.5); WHITE BLOOD COUNT 10.5 K/uL (4.8-10.8)
[2018-08-18 06:49] LABS: ALB/GLOB RATIO 1.3 (1.0-2.1); ALBUMIN 3.5 g/dL (3.5-5.0); CALCIUM 8.6 mg/dl (8.6-10.4)
[2018-08-18 07:02] LABS: CK-MB 3.71 ng/mL (0.0-3.38); TROPONIN I 5.09 ng/mL (0.00-0.120)
--- NOTE | 2018-08-18 08:14 | RAD ---
Date of service: 08/18/2018 HISTORY: NSTEMI COMPARISON: Portable chest 08/17/2018. FINDINGS: LUNGS: No active pulmonary disease. PLEURA: No significant pleural effusion identified, no pneumothorax apparent. CARDIOVASCULAR: Calcified aortic atherosclerosis identified once again. Stable cardiac silhouette. No definite pulmonary vascular congestion. OSSEOUS STRUCTURES: No significant abnormalities. VISUALIZED UPPER ABDOMEN: Normal. OTHER FINDINGS: None. IMPRESSION: No definitive acute cardiopulmonary disease appreciable. No pulmonary vascular congestion. Aortic arch atherosclerotic calcifications noted once again.
--- NOTE | 2018-08-18 09:32 | CP.PCM.PN ---
Subjective - Date & Time of Evaluation Date of Evaluation: 08/18/18 Time of Evaluation: 09:15 - Subjective Subjective: Patient was seen and examined by me. The patient went to cardiac cath last night, the report showed that the patient has a patent left main, proximal left circumflex 50% and the proximal RCA 100% with collaterals. She may be going for PCI soon depending on how her renal function does. Today the creatine has decreased from 1.9 Her HR is now in the 70s, she has a TVP at this moment. She tells us she feels much better today. Denied chest pain and denied shortness of breath, also says the lightheadedness and dizziness resolved as well. The patient denied abdominal pain, denied fevers/chills Objective - Vital Signs/Intake and Output Vital Signs (last 24 hours): Temp Pulse Resp BP Pulse Ox 98.2 F 71 20 119/53 L 98 08/18/18 08:00 08/18/18 07:19 08/18/18 07:19 08/18/18 08:18 08/18/18 07:19 Intake and Output: 08/18/18 08/18/18 06:59 18:59 Intake Total 1118.8 282.8 Output Total 450 300 Balance 668.8 -17.2 - Medications Medications: Current Medications Aspirin (Aspirin Chewable) 81 mg PO DAILY [facility] Clopidogrel Bisulfate (Plavix) 75 mg PO DAILY [facility] Famotidine (Pepcid) 20 mg IVP DAILY [facility] Heparin Sodium/Sodium Chloride (Heparin 75444 Units/250ml 1/2 Normal Saline) 25,000 units in 250 mls @ 6.151 mls/hr IV .Q24H ONE; Protocol Stop: 08/18/18 14:32 Last Titration: 08/18/18 08:27 Dose: 14 units/kg/hr, 7.176 mls/hr Sodium Chloride (Sodium Chloride 0.9%) 1,000 mls @ 80 mls/hr IV .[id number] SARAH Last Admin: 08/18/18 02:29 Dose: 80 mls/hr Rosuvastatin Calcium (Crestor) 20 mg PO HS SARAH Last Admin: 08/17/18 21:55 Dose: 20 mg - Labs Labs: 08/18/18 06:11 08/18/18 06:11 PT 11.7 SECONDS (9.7-12.2) 08/17/18 11:17 INR 1.1 08/17/18 11:17 APTT 43 SECONDS (21-34) H D 08/18/18 06:11 - Constitutional Appears: No Acute Distress - Head Exam Head Exam: NORMAL INSPECTION, NORMOCEPHALIC - Eye Exam Eye Exam: EOMI, Normal appearance - ENT Exam ENT Exam: Mucous Membranes Moist - Respiratory Exam Respiratory Exam: Clear to Ausculation Bilateral, NORMAL BREATHING PATTERN - Cardiovascular Exam Cardiovascular Exam: REGULAR RHYTHM - GI/Abdominal Exam GI & Abdominal Exam: Soft, Normal Bowel Sounds. absent: Guarding, Rigid, Tenderness - Neurological Exam Neurological Exam: Alert, Awake, Oriented x3 Neuro motor strength exam: Left Upper Extremity: 5, Right Upper Extremity: 5 - Psychiatric Exam Psychiatric exam: Normal Affect, Normal Mood - Skin Skin Exam: Normal Color, Warm Assessment and Plan - Assessment and Plan (Free Text) Assessment: 1 NSTEMI- Acute [place] 08/18: Patient reports no chest pain and no shortness of breath this morning when I saw. Possible PCI soon depending on renal function which appears to be better this morning. ASA, Plavix, statin, and remains on heparin ggt at this time. 08/17: First troponin 8.1, EKG showing severe bradycardia and Twvae inversions. started on heparin ggt, Plavix loading 300 and then 75 daily, ASA 325 already and 81 daily. Large dose of statin given Spoke with cardiology and per cardiololgy patient should be NPO except for medications. There will be additional troponins q3hrs starting at 4PM, repeat EKG A stat echo is pending at this time. Slow IVF at this moment. Repeat CXRAY tommow in case of fluid overload. 2 Bradycardia, maybe secondary to the [place] patient has 08/18: Currently has a TVP, HR is in the 70s. Light headedness resolved for the time being. 08/17: For now place temporary pacer pads/zol pads on patient. Repeat EKG For now not symptompatic however previously was. Have atropine nearby bedside 3 Acute vs chronic kidney disease 08/18: Creatine decreased to 1.1, on slow IVF at the moment. 08/17: this may make giving contrast complicated as the creatine is 1.9 Started on slow IVF for now. Consult nephrology 3 Hx of smoking 08/17: smoking since age 13 or 14
--- NOTE | 2018-08-18 11:24 | CP.PCM.CON ---
History of Present Illness - History of Present Illness History of Present Illness: 68 yo lady w/ hx of htn presented to ER yesterday for evaluationof ongoing chest pain. Found to be hypotensive in 90s and bradycardic in 40s in ER, also troponin elevated to 8. Creatinine 1.9 mg/dl yesterday, down to 1.1 mg/dl today home meds incl HCTZ and valsartan Pt was started on a heparin gtt and iv saline overnight No known prior hx of kidney disease. no nsaid use Went for cardiac cath last night, no intervention done. Has transvenous pacemaker at this time. PMH: HTN PSH: none SHx: Smokes approximately 10 cigarettes for past 50 years. Denies alcohol or illicit drug use. FHx: Father (lung cancer). no hx of kidney dz Allergies: NKDA Review of Systems - Review of Systems All systems: reviewed and no additional remarkable complaints except (as per HPI ) Past Patient History - Past Medical History & Family History Past Medical History?: Yes - Past Social History Smoking Status: Heavy Smoker > 10 Cigarettes Daily - CARDIAC Hx Hypertension: Yes - PULMONARY Hx Respiratory Disorders: No - NEUROLOGICAL Hx Neurological Disorder: No - HEENT Hx HEENT Problems: No - RENAL Hx Chronic Kidney Disease: No - ENDOCRINE/METABOLIC Hx Endocrine Disorders: No - HEMATOLOGICAL/ONCOLOGICAL Hx Blood Disorders: No - INTEGUMENTARY Hx Dermatological Problems: No - MUSCULOSKELETAL/RHEUMATOLOGICAL Hx Musculoskeletal Disorders: No - GASTROINTESTINAL Hx Gastrointestinal Disorders: No - GENITOURINARY/GYNECOLOGICAL Hx Genitourinary Disorders: No - PSYCHIATRIC Hx Substance Use: No - SURGICAL HISTORY Hx Surgeries: No - ANESTHESIA Hx Anesthesia: No Meds Allergies/Adverse Reactions: Allergies Allergy/AdvReac Type Severity Reaction Status Date / Time No Known Allergies Allergy Verified 08/17/18 10:46 - Medications Medications: Current Medications Aspirin (Aspirin Chewable) 81 mg PO DAILY [facility] Last Admin: 08/18/18 10:38 Dose: 81 mg Clopidogrel Bisulfate (Plavix) 75 mg PO DAILY [facility] Last Admin: 08/18/18 10:38 Dose: 75 mg Famotidine (Pepcid) 20 mg IVP DAILY [facility] Last Admin: 08/18/18 10:38 Dose: 20 mg Heparin Sodium/Sodium Chloride (Heparin 22468 Units/250ml 1/2 Normal Saline) 25,000 units in 250 mls @ 6.151 mls/hr IV .Q24H ONE; Protocol Stop: 08/18/18 14:32 Last Titration: 08/18/18 08:27 Dose: 14 units/kg/hr, 7.176 mls/hr Sodium Chloride (Sodium Chloride 0.9%) 1,000 mls @ 80 mls/hr IV .[id number] [facility] Last Admin: 08/18/18 02:29 Dose: 80 mls/hr Rosuvastatin Calcium (Crestor) 20 mg PO HS [facility] Last Admin: 08/17/18 21:55 Dose: 20 mg Physical Exam - Constitutional Appears: Non-toxic, No Acute Distress - Head Exam Head Exam: NORMAL INSPECTION, NORMOCEPHALIC - Eye Exam Eye Exam: Normal appearance, PERRL - ENT Exam ENT Exam: Mucous Membranes Moist, Normal Exam - Neck Exam Neck exam: Positive for: Normal Inspection - Respiratory Exam Respiratory Exam: Clear to Auscultation Bilateral, NORMAL BREATHING PATTERN - Cardiovascular Exam Cardiovascular Exam: REGULAR RHYTHM, RRR - GI/Abdominal Exam GI & Abdominal Exam: Normal Bowel Sounds, Soft - Extremities Exam Extremities exam: Positive for: normal inspection (rt femoral TVP) - Neurological Exam Neurological exam: Alert, Oriented x3 - Psychiatric Exam Psychiatric exam: Normal Affect, Normal Mood - Skin Skin Exam: Normal Color, Warm Results - Vital Signs Recent Vital Signs: Last Vital Signs Temp 98.2 F 08/18/18 08:00 Pulse 71 08/18/18 07:19 Resp 20 08/18/18 07:19 BP 119/53 L 08/18/18 08:18 Pulse Ox 98 08/18/18 07:19 - Labs Result Diagrams: 08/18/18 06:11 08/18/18 06:11 Labs: Laboratory Results - last 24 hr 08/17/18 08/17/18 08/17/18 11:17 11:17 11:17 WBC 14.4 H RBC 4.16 Hgb 13.9 Hct 40.3 MCV 96.8 MCH 33.3 H MCHC 34.4 RDW 12.9 Plt Count 287 MPV 8.8 Neut % (Auto) 81.0 H Lymph % (Auto) 8.[address] % (Auto) 10.4 H Eos % (Auto) 0.0 Baso % (Auto) 0.1 Neut # (Auto) 11.7 H Lymph # (Auto) 1.2 [place] # (Auto) 1.5 H Eos # (Auto) 0.0 Baso # (Auto) 0.0 Neutrophils % (Manual) 90 H Lymphocytes % (Manual) 3 L Monocytes % (Manual) 6 Eosinophils % (Manual) 1 Platelet Estimate Normal RBC Morphology Normal PT 11.7 INR 1.1 APTT 33 Sodium 142 Potassium 4.5 Chloride 105 Carbon Dioxide 22 Anion Gap 19 BUN 51 H Creatinine 1.9 H Est GFR ( Amer) 32 Est GFR (Non-Af Amer) 26 POC Glucose (mg/dL) Random Glucose 145 H Calcium 9.7 Phosphorus Magnesium Total Bilirubin 0.8 AST 96 H ALT 95 H Alkaline Phosphatase 173 H Total Creatine Kinase 173 H CK-MB (Mass) 9.38 H Troponin I 8.3100 H* NT-Pro-B Natriuret Pep 8310 H Total Protein 7.4 Albumin 4.3 Globulin 3.1 Albumin/Globulin Ratio 1.4 Triglycerides 127 Cholesterol 152 LDL Cholesterol Direct 69 HDL Cholesterol 57 Free T3 pg/mL TSH 3rd Generation Urine Color Urine Clarity Urine pH Ur Specific [place] Urine Protein Urine Glucose (UA) Urine Ketones Urine Blood Urine Nitrate Urine Bilirubin Urine Urobilinogen Ur Leukocyte Esterase Urine WBC (Auto) Urine RBC (Auto) Ur Squamous Epith Cells Urine Bacteria Urine Opiates Screen Urine Methadone Screen Ur Barbiturates Screen Ur Phencyclidine Scrn Ur Amphetamines Screen U Benzodiazepines Scrn U Oth Cocaine Metabols U Cannabinoids Screen 08/17/18 08/17/18 08/17/18 11:54 15:22 16:41 WBC RBC Hgb Hct MCV MCH MCHC RDW Plt Count MPV Neut % (Auto) Lymph % (Auto) [place] % (Auto) Eos % (Auto) Baso % (Auto) Neut # (Auto) Lymph # (Auto) [place] # (Auto) Eos # (Auto) Baso # (Auto) Neutrophils % (Manual) Lymphocytes % (Manual) Monocytes % (Manual) Eosinophils % (Manual) Platelet Estimate RBC Morphology PT INR APTT Sodium Potassium Chloride Carbon Dioxide Anion Gap BUN Creatinine Est GFR ( Amer) Est GFR (Non-Af Amer) POC Glucose (mg/dL) Random Glucose Calcium Phosphorus Magnesium Total Bilirubin AST ALT Alkaline Phosphatase Total Creatine Kinase 120 CK-MB (Mass) 6.24 H Troponin I 7.8000 H* NT-Pro-B Natriuret Pep Total Protein Albumin Globulin Albumin/Globulin Ratio Triglycerides Cholesterol LDL Cholesterol Direct HDL Cholesterol Free T3 pg/mL TSH 3rd Generation Urine Color Lizzie Urine Clarity Hazy Urine pH 5.0 Ur Specific [place] 1.023 Urine Protein 1+ H Urine Glucose (UA) Normal Urine Ketones Negative Urine Blood 1+ H Urine Nitrate Negative Urine Bilirubin Negative Urine Urobilinogen Normal Ur Leukocyte Esterase Neg Urine WBC (Auto) 2 Urine RBC (Auto) 2 Ur Squamous Epith Cells 47 H Urine Bacteria Rare Urine Opiates Screen Negative Urine Methadone Screen Negative Ur Barbiturates Screen Negative Ur Phencyclidine Scrn Negative Ur Amphetamines Screen Negative U Benzodiazepines Scrn Negative U Oth Cocaine Metabols Negative U Cannabinoids Screen Negative 08/17/18 08/17/18 08/18/18 20:40 23:46 05:13 WBC RBC Hgb Hct MCV MCH MCHC RDW Plt Count MPV Neut % (Auto) Lymph % (Auto) [place] % (Auto) Eos % (Auto) Baso % (Auto) Neut # (Auto) Lymph # (Auto) [place] # (Auto) Eos # (Auto) Baso # (Auto) Neutrophils % (Manual) Lymphocytes % (Manual) Monocytes % (Manual) Eosinophils % (Manual) Platelet Estimate RBC Morphology PT INR APTT Sodium Potassium Chloride Carbon Dioxide Anion Gap BUN Creatinine Est GFR ( Amer) Est GFR (Non-Af Amer) POC Glucose (mg/dL) 85 123 H 111 H Random Glucose Calcium Phosphorus Magnesium Total Bilirubin AST ALT Alkaline Phosphatase Total Creatine Kinase CK-MB (Mass) Troponin I NT-Pro-B Natriuret Pep Total Protein Albumin Globulin Albumin/Globulin Ratio Triglycerides Cholesterol LDL Cholesterol Direct HDL Cholesterol Free T3 pg/mL TSH 3rd Generation Urine Color Urine Clarity Urine pH Ur Specific [place] Urine Protein Urine Glucose (UA) Urine Ketones Urine Blood Urine Nitrate Urine Bilirubin Urine Urobilinogen Ur Leukocyte Esterase Urine WBC (Auto) Urine RBC (Auto) Ur Squamous Epith Cells Urine Bacteria Urine Opiates Screen Urine Methadone Screen Ur Barbiturates Screen Ur Phencyclidine Scrn Ur Amphetamines Screen U Benzodiazepines Scrn U Oth Cocaine Metabols U Cannabinoids Screen 08/18/18 08/18/18 08/18/18 06:11 06:11 06:11 WBC 10.5 RBC 3.55 L Hgb 12.0 Hct 34.9 MCV 98.2 MCH 33.7 H MCHC 34.3 RDW 12.8 Plt Count 232 MPV 9.2 Neut % (Auto) 67.8 Lymph % (Auto) 18.[address] % (Auto) 12.9 H Eos % (Auto) 0.1 Baso % (Auto) 0.4 Neut # (Auto) 7.1 H Lymph # (Auto) 2.0 [place] # (Auto) 1.3 H Eos # (Auto) 0.0 Baso # (Auto) 0.0 Neutrophils % (Manual) Lymphocytes % (Manual) Monocytes % (Manual) Eosinophils % (Manual) Platelet Estimate RBC Morphology PT INR APTT Sodium 142 Potassium 4.4 Chloride 111 H Carbon Dioxide 23 Anion Gap 12 BUN 44 H Creatinine 1.1 Est GFR ( Amer) 60 Est GFR (Non-Af Amer) 49 POC Glucose (mg/dL) Random Glucose 103 Calcium 8.6 Phosphorus 3.5 Magnesium 2.3 Total Bilirubin 0.7 AST 52 H D ALT 72 H D Alkaline Phosphatase 132 H D Total Creatine Kinase 92 CK-MB (Mass) 3.71 H Troponin I 5.0900 H* NT-Pro-B Natriuret Pep Total Protein 6.3 Albumin 3.5 Globulin 2.8 Albumin/Globulin Ratio 1.3 Triglycerides Cholesterol LDL Cholesterol Direct HDL Cholesterol Free T3 pg/mL 2.71 L TSH 3rd Generation 4.63 Urine Color Urine Clarity Urine pH Ur Specific [place] Urine Protein Urine Glucose (UA) Urine Ketones Urine Blood Urine Nitrate Urine Bilirubin Urine Urobilinogen Ur Leukocyte Esterase Urine WBC (Auto) Urine RBC (Auto) Ur Squamous Epith Cells Urine Bacteria Urine Opiates Screen Urine Methadone Screen Ur Barbiturates Screen Ur Phencyclidine Scrn Ur Amphetamines Screen U Benzodiazepines Scrn U Oth Cocaine Metabols U Cannabinoids Screen 08/18/18 06:11 WBC RBC Hgb Hct MCV MCH MCHC RDW Plt Count MPV Neut % (Auto) Lymph % (Auto) [place] % (Auto) Eos % (Auto) Baso % (Auto) Neut # (Auto) Lymph # (Auto) [place] # (Auto) Eos # (Auto) Baso # (Auto) Neutrophils % (Manual) Lymphocytes % (Manual) Monocytes % (Manual) Eosinophils % (Manual) Platelet Estimate RBC Morphology PT INR APTT 43 H D Sodium Potassium Chloride Carbon Dioxide Anion Gap BUN Creatinine Est GFR ( Amer) Est GFR (Non-Af Amer) POC Glucose (mg/dL) Random Glucose Calcium Phosphorus Magnesium Total Bilirubin AST ALT Alkaline Phosphatase Total Creatine Kinase CK-MB (Mass) Troponin I NT-Pro-B Natriuret Pep Total Protein Albumin Globulin Albumin/Globulin Ratio Triglycerides Cholesterol LDL Cholesterol Direct HDL Cholesterol Free T3 pg/mL TSH 3rd Generation Urine Color Urine Clarity Urine pH Ur Specific [place] Urine Protein Urine Glucose (UA) Urine Ketones Urine Blood Urine Nitrate Urine Bilirubin Urine Urobilinogen Ur Leukocyte Esterase Urine WBC (Auto) Urine RBC (Auto) Ur Squamous Epith Cells Urine Bacteria Urine Opiates Screen Urine Methadone Screen Ur Barbiturates Screen Ur Phencyclidine Scrn Ur Amphetamines Screen U Benzodiazepines Scrn U Oth Cocaine Metabols U Cannabinoids Screen Assessment & Plan (1) Acute renal failure Status: Acute (2) NSTEMI (non-ST elevated myocardial infarction) Status: Acute (3) Hypertension Status: Acute (4) Bradycardia Status: Acute - Assessment and Plan (Free Text) Assessment: WES likely sec to poor hemodynamics / cardiac function. Improved w/ iv fluids maintain iv NS Renal US when stable check urine protein hold ARB Ok for PCI from renal standpoint. Pt made aware of possibility of renal injury f rom dye and needing HD although unlikely
--- NOTE | 2018-08-18 11:56 | CP.CCUPN ---
<Desire Gill L - Last Filed: 08/18/18 15:16> CCU Subjective - Physician Review Subjective (Free Text): Critical Care Progress Note Patient examined at bedside. Patient was resting comfortably, no acute events overnight. Offers no complaints at this time. Denies fevers, chills, headache, dizziness, chest pain, shortness of breath, abdominal pain. Patient awaiting transfer to [facility] for PCI. Critical Care Time Spent (in minutes): 35 CCU Objective - Vital Signs / Intake & Output Vital Signs (Last 4 hours): Vital Signs Temp BP 08/18/18 08:18 119/53 L 08/18/18 08:00 98.2 F Intake and Output (Last 8hrs): Intake & Output 08/17/18 08/18/18 08/18/18 22:59 06:59 14:59 Intake Total 748.3 688.8 368.3 Output Total 450 300 Balance 748.3 238.8 68.3 Weight 113 lb 12.136 oz Intake: IV 108 Intake, IV Amount 578.3 688.8 260.3 Left Hand 560 640 240 Left Hand Y-Port 18.3 48.8 20.3 Oral 170 Output: Urine 450 300 Urine, Voided 450 300 Other: Voiding Method Bedpan # Voids Urine, Voided 0 1 # Bowel Movements 0 - Physical Exam Head: Positive for: Atraumatic, Normocephalic Pupils: Positive for: PERRL Extroacular Muscles: Positive for: EOMI Conjunctiva: Positive for: Normal Mouth: Positive for: Moist Mucous Membranes Neck: Positive for: Normal Range of Motion Respiratory/Chest: Positive for: Clear to Auscultation, Good Air Exchange. Negative for: Respiratory Distress Cardiovascular: Positive for: Regular Rate and Rhythm, Normal S1, S2 Abdomen: Positive for: Normal Bowel Sounds. Negative for: Tenderness, Distention, Peritoneal Signs Upper Extremity: Positive for: Normal Inspection, Normal ROM. Negative for: Cyanosis, Edema Lower Extremity: Positive for: Normal Inspection, NORMAL PULSES. Negative for: Edema, CALF TENDERNESS Neurological: Positive for: GCS=15, CN II-XII Intact, Speech Normal Skin: Positive for: Warm, Dry, Normal Color. Negative for: Rashes Psychiatric: Positive for: Alert, Oriented x 3, Normal Insight, Normal Concentration - Medications Active Medications: Active Medications Generic Name Dose Route Start Last Admin Trade Name Freq PRN Reason Stop Dose Admin Aspirin 81 mg 08/18/18 10:00 08/18/18 10:38 Aspirin Chewable PO 81 mg DAILY SARAH Administration Clopidogrel Bisulfate 75 mg 08/18/18 10:00 08/18/18 10:38 Plavix PO 75 mg DAILY SARAH Administration Famotidine 20 mg 08/18/18 10:00 08/18/18 10:38 Pepcid IVP 20 mg DAILY SARAH Administration Heparin Sodium/Sodium Chloride 25,000 units in 250 mls @ 6.151 mls/hr 08/17/18 14:33 08/18/18 08:27 Heparin 89292 Units/250ml 1/2 Normal Saline IV 08/18/18 14:32 14 units/kg/hr .Q24H ONE 7.176 mls/hr Titration Protocol 12 UNITS/KG/HR Sodium Chloride 1,000 mls @ 80 mls/hr 08/17/18 19:28 08/18/18 02:29 Sodium Chloride 0.9% IV 80 mls/hr .[id number] SARAH Administration Pneumococcal Polyvalent Vaccine 0.5 ml 08/18/18 11:29 Prevnar 13 IM 08/18/18 11:30 .ONCE ONE Rosuvastatin Calcium 20 mg 08/17/18 22:00 08/17/18 21:55 Crestor PO 20 mg HS SARAH Administration - Patient Studies Lab Studies: Lab Studies 08/18/18 08/18/18 08/18/18 Range/Units 06:11 06:11 06:11 WBC (4.8-10.8) K/uL RBC (3.80-5.20) Mil/uL Hgb (11.0-16.0) g/dL Hct (34.0-47.0) % MCV (81.0-99.0) fL MCH (27.0-31.0) pg MCHC (33.0-37.0) g/dL RDW (11.5-14.5) % Plt Count (130-400) K/uL MPV (7.2-11.7) fL Neut % (Auto) (50.0-75.0) % Lymph % (Auto) (20.0-40.0) % Woods % (Auto) (0.0-10.0) % Eos % (Auto) (0.0-4.0) % Baso % (Auto) (0.0-2.0) % Neut # (Auto) (1.8-7.0) K/uL Lymph # (Auto) (1.0-4.3) K/uL Woods # (Auto) (0.0-0.8) K/uL Eos # (Auto) (0.0-0.7) K/uL Baso # (Auto) (0.0-0.2) K/uL APTT 43 H D (21-34) SECONDS Sodium 142 (132-148) mmol/L Potassium 4.4 (3.6-5.2) mmol/L Chloride 111 H (98-107) mmol/L Carbon Dioxide 23 (22-30) mmol/L Anion Gap 12 (10-20) BUN 44 H (7-17) mg/dL Creatinine 1.1 (0.7-1.2) mg/dL Est GFR ( Amer) 60 Est GFR (Non-Af Amer) 49 POC Glucose (mg/dL) (65-110) mg/dL Random Glucose 103 (65-105) mg/dL Calcium 8.6 (8.6-10.4) mg/dl Phosphorus 3.5 (2.5-4.5) mg/dL Magnesium 2.3 (1.6-2.3) mg/dL Total Bilirubin 0.7 (0.2-1.3) mg/dL AST 52 H D (14-36) U/L ALT 72 H D (9-52) U/L Alkaline Phosphatase 132 H D (38-126) U/L Total Creatine Kinase 92 (30-135) U/L CK-MB (Mass) 3.71 H (0.0-3.38) ng/mL Troponin I 5.0900 H* (0.00-0.120) ng/mL NT-Pro-B Natriuret Pep (0-900) pg/mL Total Protein 6.3 (6.3-8.3) g/dL Albumin 3.5 (3.5-5.0) g/dL Globulin 2.8 (2.2-3.9) gm/dL Albumin/Globulin Ratio 1.3 (1.0-2.1) Free T3 pg/mL 2.71 L (2.77-5.27) pg/mL TSH 3rd Generation 4.63 (0.46-4.68) mIU/L Urine Color (YELLOW) Urine Clarity (Clear) Urine pH (5.0-8.0) Ur Specific [place] (1.003-1.030) Urine Protein (NEGATIVE) mg/dL Urine Glucose (UA) (Normal) mg/dL Urine Ketones (NEGATIVE) mg/dL Urine Blood (NEGATIVE) Urine Nitrate (NEGATIVE) Urine Bilirubin (NEGATIVE) Urine Urobilinogen (0.2-1.0) mg/dL Ur Leukocyte Esterase (Negative) Yady/uL Urine WBC (Auto) (0-5) /hpf Urine RBC (Auto) (0-3) /hpf Ur Squamous Epith Cells (0-5) /hpf Urine Bacteria (<OCC) Urine Opiates Screen (NEGATIVE) Urine Methadone Screen (NEGATIVE) Ur Barbiturates Screen (NEGATIVE) Ur Phencyclidine Scrn (NEGATIVE) Ur Amphetamines Screen (NEGATIVE) U Benzodiazepines Scrn (NEGATIVE) U Oth Cocaine Metabols (NEGATIVE) U Cannabinoids Screen (NEGATIVE) 08/18/18 08/18/18 08/17/18 Range/Units 06:11 05:13 23:46 WBC 10.5 (4.8-10.8) K/uL RBC 3.55 L (3.80-5.20) Mil/uL Hgb 12.0 (11.0-16.0) g/dL Hct 34.9 (34.0-47.0) % MCV 98.2 (81.0-99.0) fL MCH 33.7 H (27.0-31.0) pg MCHC 34.3 (33.0-37.0) g/dL RDW 12.8 (11.5-14.5) % Plt Count 232 (130-400) K/uL MPV 9.2 (7.2-11.7) fL Neut % (Auto) 67.8 (50.0-75.0) % Lymph % (Auto) 18.8 L (20.0-40.0) % Woods % (Auto) 12.9 H (0.0-10.0) % Eos % (Auto) 0.1 (0.0-4.0) % Baso % (Auto) 0.4 (0.0-2.0) % Neut # (Auto) 7.1 H (1.8-7.0) K/uL Lymph # (Auto) 2.0 (1.0-4.3) K/uL Woods # (Auto) 1.3 H (0.0-0.8) K/uL Eos # (Auto) 0.0 (0.0-0.7) K/uL Baso # (Auto) 0.0 (0.0-0.2) K/uL APTT (21-34) SECONDS Sodium (132-148) mmol/L Potassium (3.6-5.2) mmol/L Chloride (98-107) mmol/L Carbon Dioxide (22-30) mmol/L Anion Gap (10-20) BUN (7-17) mg/dL Creatinine (0.7-1.2) mg/dL Est GFR ( Amer) Est GFR (Non-Af Amer) POC Glucose (mg/dL) 111 H 123 H (65-110) mg/dL Random Glucose (65-105) mg/dL Calcium (8.6-10.4) mg/dl Phosphorus (2.5-4.5) mg/dL Magnesium (1.6-2.3) mg/dL Total Bilirubin (0.2-1.3) mg/dL AST (14-36) U/L ALT (9-52) U/L Alkaline Phosphatase (38-126) U/L Total Creatine Kinase (30-135) U/L CK-MB (Mass) (0.0-3.38) ng/mL Troponin I (0.00-0.120) ng/mL NT-Pro-B Natriuret Pep (0-900) pg/mL Total Protein (6.3-8.3) g/dL Albumin (3.5-5.0) g/dL Globulin (2.2-3.9) gm/dL Albumin/Globulin Ratio (1.0-2.1) Free T3 pg/mL (2.77-5.27) pg/mL TSH 3rd Generation (0.46-4.68) mIU/L Urine Color (YELLOW) Urine Clarity (Clear) Urine pH (5.0-8.0) Ur Specific [place] (1.003-1.030) Urine Protein (NEGATIVE) mg/dL Urine Glucose (UA) (Normal) mg/dL Urine Ketones (NEGATIVE) mg/dL Urine Blood (NEGATIVE) Urine Nitrate (NEGATIVE) Urine Bilirubin (NEGATIVE) Urine Urobilinogen (0.2-1.0) mg/dL Ur Leukocyte Esterase (Negative) Yady/uL Urine WBC (Auto) (0-5) /hpf Urine RBC (Auto) (0-3) /hpf Ur Squamous Epith Cells (0-5) /hpf Urine Bacteria (<OCC) Urine Opiates Screen (NEGATIVE) Urine Methadone Screen (NEGATIVE) Ur Barbiturates Screen (NEGATIVE) Ur Phencyclidine Scrn (NEGATIVE) Ur Amphetamines Screen (NEGATIVE) U Benzodiazepines Scrn (NEGATIVE) U Oth Cocaine Metabols (NEGATIVE) U Cannabinoids Screen (NEGATIVE) 08/17/18 08/17/18 08/17/18 Range/Units 20:40 16:41 15:22 WBC (4.8-10.8) K/uL RBC (3.80-5.20) Mil/uL Hgb (11.0-16.0) g/dL Hct (34.0-47.0) % MCV (81.0-99.0) fL MCH (27.0-31.0) pg MCHC (33.0-37.0) g/dL RDW (11.5-14.5) % Plt Count (130-400) K/uL MPV (7.2-11.7) fL Neut % (Auto) (50.0-75.0) % Lymph % (Auto) (20.0-40.0) % Woods % (Auto) (0.0-10.0) % Eos % (Auto) (0.0-4.0) % Baso % (Auto) (0.0-2.0) % Neut # (Auto) (1.8-7.0) K/uL Lymph # (Auto) (1.0-4.3) K/uL Woods # (Auto) (0.0-0.8) K/uL Eos # (Auto) (0.0-0.7) K/uL Baso # (Auto) (0.0-0.2) K/uL APTT (21-34) SECONDS Sodium (132-148) mmol/L Potassium (3.6-5.2) mmol/L Chloride (98-107) mmol/L Carbon Dioxide (22-30) mmol/L Anion Gap (10-20) BUN (7-17) mg/dL Creatinine (0.7-1.2) mg/dL Est GFR ( Amer) Est GFR (Non-Af Amer) POC Glucose (mg/dL) 85 (65-110) mg/dL Random Glucose (65-105) mg/dL Calcium (8.6-10.4) mg/dl Phosphorus (2.5-4.5) mg/dL Magnesium (1.6-2.3) mg/dL Total Bilirubin (0.2-1.3) mg/dL AST (14-36) U/L ALT (9-52) U/L Alkaline Phosphatase (38-126) U/L Total Creatine Kinase 120 (30-135) U/L CK-MB (Mass) 6.24 H (0.0-3.38) ng/mL Troponin I 7.8000 H* (0.00-0.120) ng/mL NT-Pro-B Natriuret Pep (0-900) pg/mL Total Protein (6.3-8.3) g/dL Albumin (3.5-5.0) g/dL Globulin (2.2-3.9) gm/dL Albumin/Globulin Ratio (1.0-2.1) Free T3 pg/mL (2.77-5.27) pg/mL TSH 3rd Generation (0.46-4.68) mIU/L Urine Color (YELLOW) Urine Clarity (Clear) Urine pH (5.0-8.0) Ur Specific [place] (1.003-1.030) Urine Protein (NEGATIVE) mg/dL Urine Glucose (UA) (Normal) mg/dL Urine Ketones (NEGATIVE) mg/dL Urine Blood (NEGATIVE) Urine Nitrate (NEGATIVE) Urine Bilirubin (NEGATIVE) Urine Urobilinogen (0.2-1.0) mg/dL Ur Leukocyte Esterase (Negative) Yady/uL Urine WBC (Auto) (0-5) /hpf Urine RBC (Auto) (0-3) /hpf Ur Squamous Epith Cells (0-5) /hpf Urine Bacteria (<OCC) Urine Opiates Screen Negative (NEGATIVE) Urine Methadone Screen Negative (NEGATIVE) Ur Barbiturates Screen Negative (NEGATIVE) Ur Phencyclidine Scrn Negative (NEGATIVE) Ur Amphetamines Screen Negative (NEGATIVE) U Benzodiazepines Scrn Negative (NEGATIVE) U Oth Cocaine Metabols Negative (NEGATIVE) U Cannabinoids Screen Negative (NEGATIVE) 08/17/18 08/17/18 Range/Units 11:54 11:17 WBC (4.8-10.8) K/uL RBC (3.80-5.20) Mil/uL Hgb (11.0-16.0) g/dL Hct (34.0-47.0) % MCV (81.0-99.0) fL MCH (27.0-31.0) pg MCHC (33.0-37.0) g/dL RDW (11.5-14.5) % Plt Count (130-400) K/uL MPV (7.2-11.7) fL Neut % (Auto) (50.0-75.0) % Lymph % (Auto) (20.0-40.0) % Woods % (Auto) (0.0-10.0) % Eos % (Auto) (0.0-4.0) % Baso % (Auto) (0.0-2.0) % Neut # (Auto) (1.8-7.0) K/uL Lymph # (Auto) (1.0-4.3) K/uL Woods # (Auto) (0.0-0.8) K/uL Eos # (Auto) (0.0-0.7) K/uL Baso # (Auto) (0.0-0.2) K/uL APTT (21-34) SECONDS Sodium (132-148) mmol/L Potassium (3.6-5.2) mmol/L Chloride (98-107) mmol/L Carbon Dioxide (22-30) mmol/L Anion Gap (10-20) BUN (7-17) mg/dL Creatinine 1.9 H (0.7-1.2) mg/dL Est GFR ( Amer) 32 Est GFR (Non-Af Amer) 26 POC Glucose (mg/dL) (65-110) mg/dL Random Glucose (65-105) mg/dL Calcium (8.6-10.4) mg/dl Phosphorus (2.5-4.5) mg/dL Magnesium (1.6-2.3) mg/dL Total Bilirubin (0.2-1.3) mg/dL AST (14-36) U/L ALT (9-52) U/L Alkaline Phosphatase (38-126) U/L Total Creatine Kinase (30-135) U/L CK-MB (Mass) 9.38 H (0.0-3.38) ng/mL Troponin I 8.3100 H* (0.00-0.120) ng/mL NT-Pro-B Natriuret Pep 8310 H (0-900) pg/mL Total Protein (6.3-8.3) g/dL Albumin (3.5-5.0) g/dL Globulin 3.1 (2.2-3.9) gm/dL Albumin/Globulin Ratio 1.4 (1.0-2.1) Free T3 pg/mL (2.77-5.27) pg/mL TSH 3rd Generation (0.46-4.68) mIU/L Urine Color Lizzie (YELLOW) Urine Clarity Hazy (Clear) Urine pH 5.0 (5.0-8.0) Ur Specific [place] 1.023 (1.003-1.030) Urine Protein 1+ H (NEGATIVE) mg/dL Urine Glucose (UA) Normal (Normal) mg/dL Urine Ketones Negative (NEGATIVE) mg/dL Urine Blood 1+ H (NEGATIVE) Urine Nitrate Negative (NEGATIVE) Urine Bilirubin Negative (NEGATIVE) Urine Urobilinogen Normal (0.2-1.0) mg/dL Ur Leukocyte Esterase Neg (Negative) Yady/uL Urine WBC (Auto) 2 (0-5) /hpf Urine RBC (Auto) 2 (0-3) /hpf Ur Squamous Epith Cells 47 H (0-5) /hpf Urine Bacteria Rare (<OCC) Urine Opiates Screen (NEGATIVE) Urine Methadone Screen (NEGATIVE) Ur Barbiturates Screen (NEGATIVE) Ur Phencyclidine Scrn (NEGATIVE) Ur Amphetamines Screen (NEGATIVE) U Benzodiazepines Scrn (NEGATIVE) U Oth Cocaine Metabols (NEGATIVE) U Cannabinoids Screen (NEGATIVE) Laboratory Results - last 24 hr 08/17/18 08/17/18 08/17/18 11:17 11:54 15:22 WBC RBC Hgb Hct MCV MCH MCHC RDW Plt Count MPV Neut % (Auto) Lymph % (Auto) Woods % (Auto) Eos % (Auto) Baso % (Auto) Neut # (Auto) Lymph # (Auto) Woods # (Auto) Eos # (Auto) Baso # (Auto) APTT Sodium Potassium Chloride Carbon Dioxide Anion Gap BUN Creatinine 1.9 H Est GFR ( Amer) 32 Est GFR (Non-Af Amer) 26 POC Glucose (mg/dL) Random Glucose Calcium Phosphorus Magnesium Total Bilirubin AST ALT Alkaline Phosphatase Total Creatine Kinase CK-MB (Mass) 9.38 H Troponin I 8.3100 H* NT-Pro-B Natriuret Pep 8310 H Total Protein Albumin Globulin 3.1 Albumin/Globulin Ratio 1.4 Free T3 pg/mL TSH 3rd Generation Urine Color Lizzie Urine Clarity Hazy Urine pH 5.0 Ur Specific [place] 1.023 Urine Protein 1+ H Urine Glucose (UA) Normal Urine Ketones Negative Urine Blood 1+ H Urine Nitrate Negative Urine Bilirubin Negative Urine Urobilinogen Normal Ur Leukocyte Esterase Neg Urine WBC (Auto) 2 Urine RBC (Auto) 2 Ur Squamous Epith Cells 47 H Urine Bacteria Rare Urine Opiates Screen Negative Urine Methadone Screen Negative Ur Barbiturates Screen Negative Ur Phencyclidine Scrn Negative Ur Amphetamines Screen Negative U Benzodiazepines Scrn Negative U Oth Cocaine Metabols Negative U Cannabinoids Screen Negative 08/17/18 08/17/18 08/17/18 16:41 20:40 23:46 WBC RBC Hgb Hct MCV MCH MCHC RDW Plt Count MPV Neut % (Auto) Lymph % (Auto) Woods % (Auto) Eos % (Auto) Baso % (Auto) Neut # (Auto) Lymph # (Auto) Woods # (Auto) Eos # (Auto) Baso # (Auto) APTT Sodium Potassium Chloride Carbon Dioxide Anion Gap BUN Creatinine Est GFR ( Amer) Est GFR (Non-Af Amer) POC Glucose (mg/dL) 85 123 H Random Glucose Calcium Phosphorus Magnesium Total Bilirubin AST ALT Alkaline Phosphatase Total Creatine Kinase 120 CK-MB (Mass) 6.24 H Troponin I 7.8000 H* NT-Pro-B Natriuret Pep Total Protein Albumin Globulin Albumin/Globulin Ratio Free T3 pg/mL TSH 3rd Generation Urine Color Urine Clarity Urine pH Ur Specific [place] Urine Protein Urine Glucose (UA) Urine Ketones Urine Blood Urine Nitrate Urine Bilirubin Urine Urobilinogen Ur Leukocyte Esterase Urine WBC (Auto) Urine RBC (Auto) Ur Squamous Epith Cells Urine Bacteria Urine Opiates Screen Urine Methadone Screen Ur Barbiturates Screen Ur Phencyclidine Scrn Ur Amphetamines Screen U Benzodiazepines Scrn U Oth Cocaine Metabols U Cannabinoids Screen 08/18/18 08/18/18 08/18/18 05:13 06:11 06:11 WBC 10.5 RBC 3.55 L Hgb 12.0 Hct 34.9 MCV 98.2 MCH 33.7 H MCHC 34.3 RDW 12.8 Plt Count 232 MPV 9.2 Neut % (Auto) 67.8 Lymph % (Auto) 18.8 L Woods % (Auto) 12.9 H Eos % (Auto) 0.1 Baso % (Auto) 0.4 Neut # (Auto) 7.1 H Lymph # (Auto) 2.0 Woods # (Auto) 1.3 H Eos # (Auto) 0.0 Baso # (Auto) 0.0 APTT Sodium 142 Potassium 4.4 Chloride 111 H Carbon Dioxide 23 Anion Gap 12 BUN 44 H Creatinine 1.1 Est GFR ( Amer) 60 Est GFR (Non-Af Amer) 49 POC Glucose (mg/dL) 111 H Random Glucose 103 Calcium 8.6 Phosphorus 3.5 Magnesium 2.3 Total Bilirubin 0.7 AST 52 H D ALT 72 H D Alkaline Phosphatase 132 H D Total Creatine Kinase CK-MB (Mass) Troponin I NT-Pro-B Natriuret Pep Total Protein 6.3 Albumin 3.5 Globulin 2.8 Albumin/Globulin Ratio 1.3 Free T3 pg/mL TSH 3rd Generation Urine Color Urine Clarity Urine pH Ur Specific [place] Urine Protein Urine Glucose (UA) Urine Ketones Urine Blood Urine Nitrate Urine Bilirubin Urine Urobilinogen Ur Leukocyte Esterase Urine WBC (Auto) Urine RBC (Auto) Ur Squamous Epith Cells Urine Bacteria Urine Opiates Screen Urine Methadone Screen Ur Barbiturates Screen Ur Phencyclidine Scrn Ur Amphetamines Screen U Benzodiazepines Scrn U Oth Cocaine Metabols U Cannabinoids Screen 08/18/18 08/18/18 06:11 06:11 WBC RBC Hgb Hct MCV MCH MCHC RDW Plt Count MPV Neut % (Auto) Lymph % (Auto) Woods % (Auto) Eos % (Auto) Baso % (Auto) Neut # (Auto) Lymph # (Auto) Woods # (Auto) Eos # (Auto) Baso # (Auto) APTT 43 H D Sodium Potassium Chloride Carbon Dioxide Anion Gap BUN Creatinine Est GFR ( Amer) Est GFR (Non-Af Amer) POC Glucose (mg/dL) Random Glucose Calcium Phosphorus Magnesium Total Bilirubin AST ALT Alkaline Phosphatase Total Creatine Kinase 92 CK-MB (Mass) 3.71 H Troponin I 5.0900 H* NT-Pro-B Natriuret Pep Total Protein Albumin Globulin Albumin/Globulin Ratio Free T3 pg/mL 2.71 L TSH 3rd Generation 4.63 Urine Color Urine Clarity Urine pH Ur Specific [place] Urine Protein Urine Glucose (UA) Urine Ketones Urine Blood Urine Nitrate Urine Bilirubin Urine Urobilinogen Ur Leukocyte Esterase Urine WBC (Auto) Urine RBC (Auto) Ur Squamous Epith Cells Urine Bacteria Urine Opiates Screen Urine Methadone Screen Ur Barbiturates Screen Ur Phencyclidine Scrn Ur Amphetamines Screen U Benzodiazepines Scrn U Oth Cocaine Metabols U Cannabinoids Screen EKG/Cardiology Studies: Cardiology / EKG Studies 08/17/18 13:36 EKG [ELECTROCARDIOGRAM] Stat Comment: NSTEMI, bradycardia Mode Of Transportation: Reason For Exam: 18:00 Fingerstick Blood Sugar Results: 111 Review of Systems - Review of Systems All systems: reviewed and no additional remarkable complaints except (as stated in HPI) Critical Care Progress Note - Nutrition Nutrition: Nutrition Category Date Time Status Heart Healthy Diet [DIET] Diets 08/17/18 Dinner Active Assessment/Plan - Assessment and Plan (Free Text) Assessment: Patient is a 68 year old female with past medical history of HTN presenting with chief complaint of chest pain that began approximately 4 days ago, was found to have severe bradycardia with HR in 40s and elevated troponins, now admitted to ICU for workup and management of NSTEMI. Plan: Neuro: - AAOx3 - Maintain normothermia Pulm: - CXR from this AM shows no active disease - Nasal cannula - Maintain SpO2>92% CV: - Currently hemodynamically stable, no pressors required at this time - Cardiology Dr. Degroot consulted. Appreciate recs. - Continue aspirin 81 mg PO daily, plavix 75 mg PO daily, rosuvastatin 20 mg PO HS - ECHO shows LVEF 65-70%, discontinuity of interatrial septum suggestive of ASD - s/p cardiac cath, proximal RCA 100% occluded, patent LAD, left circumflex patent - plan for transfer to [place] tomorrow for PCI GI: - NPO - Pepcid 20 mg IV daily Renal: - ARF improving with IVF - Nephrology consulted. Recs appreciated. - Monitor I and O - NS 80 ccs/hr Endo: - Maintain euglycemia Heme: - Monitor H/H ID: - Afebrile, leukocytosis resolved - No active issues PPX: Pepcid 20 mg IV daily, SCDs Case seen and reviewed with Dr. Stefan Gill PGY-1 - Date & Time Date: 08/18/18 Time: 08:00 <Lio Aviles - Last Filed: 08/18/18 15:58> CCU Objective - Vital Signs / Intake & Output Vital Signs (Last 4 hours): Vital Signs Temp Pulse Resp BP Pulse Ox 08/18/18 15:00 72 22 99 08/18/18 14:18 111 H 25 H 105/54 L 97 08/18/18 14:00 72 22 97 08/18/18 13:19 72 25 H 92/46 L 98 08/18/18 13:18 72 22 98 08/18/18 13:00 72 18 97 08/18/18 12:19 71 22 106/48 L 99 08/18/18 12:00 98.7 F 71 21 99 Intake and Output (Last 8hrs): Intake & Output 08/18/18 08/18/18 08/18/18 06:59 14:59 22:59 Intake Total 688.8 1103.8 87.1 Output Total 450 500 0 Balance 238.8 603.8 87.1 Intake: IV 108 Intake, IV Amount 688.8 695.8 87.1 Left Hand 640 640 80 Left Hand Y-Port 48.8 55.8 7.1 Oral 300 Output: Urine 450 500 0 Urine, Voided 450 500 0 Other: # Voids Urine, Voided 1 - Medications Active Medications: Active Medications Generic Name Dose Route Start Last Admin Trade Name Freq PRN Reason Stop Dose Admin Aspirin 81 mg 08/18/18 10:00 08/18/18 10:38 Aspirin Chewable PO 81 mg DAILY SARAH Administration Clopidogrel Bisulfate 75 mg 08/18/18 10:00 08/18/18 10:38 Plavix PO 75 mg DAILY SARAH Administration Famotidine 20 mg 08/18/18 10:00 08/18/18 10:38 Pepcid IVP 20 mg DAILY SARAH Administration Sodium Chloride 1,000 mls @ 80 mls/hr 08/17/18 19:28 08/18/18 15:08 Sodium Chloride 0.9% IV 80 mls/hr .[id number] SARAH Administration Pneumococcal Polyvalent Vaccine 0.5 ml 08/21/18 13:45 Pneumovax 23 Vaccine IM 08/21/18 13:46 .ONCE ONE Rosuvastatin Calcium 20 mg 08/17/18 22:00 08/17/18 21:55 Crestor PO 20 mg HS SARAH Administration - Patient Studies Lab Studies: Lab Studies 08/18/18 08/18/18 08/18/18 Range/Units 14:25 06:11 06:11 WBC (4.8-10.8) K/uL RBC (3.80-5.20) Mil/uL Hgb (11.0-16.0) g/dL Hct (34.0-47.0) % MCV (81.0-99.0) fL MCH (27.0-31.0) pg MCHC (33.0-37.0) g/dL RDW (11.5-14.5) % Plt Count (130-400) K/uL MPV (7.2-11.7) fL Neut % (Auto) (50.0-75.0) % Lymph % (Auto) (20.0-40.0) % Woods % (Auto) (0.0-10.0) % Eos % (Auto) (0.0-4.0) % Baso % (Auto) (0.0-2.0) % Neut # (Auto) (1.8-7.0) K/uL Lymph # (Auto) (1.0-4.3) K/uL Woods # (Auto) (0.0-0.8) K/uL Eos # (Auto) (0.0-0.7) K/uL Baso # (Auto) (0.0-0.2) K/uL APTT 57 H D 43 H D (21-34) SECONDS Sodium (132-148) mmol/L Potassium (3.6-5.2) mmol/L Chloride (98-107) mmol/L Carbon Dioxide (22-30) mmol/L Anion Gap (10-20) BUN (7-17) mg/dL Creatinine (0.7-1.2) mg/dL Est GFR ( Amer) Est GFR (Non-Af Amer) POC Glucose (mg/dL) (65-110) mg/dL Random Glucose (65-105) mg/dL Calcium (8.6-10.4) mg/dl Phosphorus (2.5-4.5) mg/dL Magnesium (1.6-2.3) mg/dL Total Bilirubin (0.2-1.3) mg/dL AST (14-36) U/L ALT (9-52) U/L Alkaline Phosphatase (38-126) U/L Total Creatine Kinase 92 (30-135) U/L CK-MB (Mass) 3.71 H (0.0-3.38) ng/mL Troponin I 5.0900 H* (0.00-0.120) ng/mL Total Protein (6.3-8.3) g/dL Albumin (3.5-5.0) g/dL Globulin (2.2-3.9) gm/dL Albumin/Globulin Ratio (1.0-2.1) Free T3 pg/mL 2.71 L (2.77-5.27) pg/mL TSH 3rd Generation 4.63 (0.46-4.68) mIU/L Urine Opiates Screen (NEGATIVE) Urine Methadone Screen (NEGATIVE) Ur Barbiturates Screen (NEGATIVE) Ur Phencyclidine Scrn (NEGATIVE) Ur Amphetamines Screen (NEGATIVE) U Benzodiazepines Scrn (NEGATIVE) U Oth Cocaine Metabols (NEGATIVE) U Cannabinoids Screen (NEGATIVE) 08/18/18 08/18/18 08/18/18 Range/Units 06:11 06:11 05:13 WBC 10.5 (4.8-10.8) K/uL RBC 3.55 L (3.80-5.20) Mil/uL Hgb 12.0 (11.0-16.0) g/dL Hct 34.9 (34.0-47.0) % MCV 98.2 (81.0-99.0) fL MCH 33.7 H (27.0-31.0) pg MCHC 34.3 (33.0-37.0) g/dL RDW 12.8 (11.5-14.5) % Plt Count 232 (130-400) K/uL MPV 9.2 (7.2-11.7) fL Neut % (Auto) 67.8 (50.0-75.0) % Lymph % (Auto) 18.8 L (20.0-40.0) % Woods % (Auto) 12.9 H (0.0-10.0) % Eos % (Auto) 0.1 (0.0-4.0) % Baso % (Auto) 0.4 (0.0-2.0) % Neut # (Auto) 7.1 H (1.8-7.0) K/uL Lymph # (Auto) 2.0 (1.0-4.3) K/uL Woods # (Auto) 1.3 H (0.0-0.8) K/uL Eos # (Auto) 0.0 (0.0-0.7) K/uL Baso # (Auto) 0.0 (0.0-0.2) K/uL APTT (21-34) SECONDS Sodium 142 (132-148) mmol/L Potassium 4.4 (3.6-5.2) mmol/L Chloride 111 H (98-107) mmol/L Carbon Dioxide 23 (22-30) mmol/L Anion Gap 12 (10-20) BUN 44 H (7-17) mg/dL Creatinine 1.1 (0.7-1.2) mg/dL Est GFR ( Amer) 60 Est GFR (Non-Af Amer) 49 POC Glucose (mg/dL) 111 H (65-110) mg/dL Random Glucose 103 (65-105) mg/dL Calcium 8.6 (8.6-10.4) mg/dl Phosphorus 3.5 (2.5-4.5) mg/dL Magnesium 2.3 (1.6-2.3) mg/dL Total Bilirubin 0.7 (0.2-1.3) mg/dL AST 52 H D (14-36) U/L ALT 72 H D (9-52) U/L Alkaline Phosphatase 132 H D (38-126) U/L Total Creatine Kinase (30-135) U/L CK-MB (Mass) (0.0-3.38) ng/mL Troponin I (0.00-0.120) ng/mL Total Protein 6.3 (6.3-8.3) g/dL Albumin 3.5 (3.5-5.0) g/dL Globulin 2.8 (2.2-3.9) gm/dL Albumin/Globulin Ratio 1.3 (1.0-2.1) Free T3 pg/mL (2.77-5.27) pg/mL TSH 3rd Generation (0.46-4.68) mIU/L Urine Opiates Screen (NEGATIVE) Urine Methadone Screen (NEGATIVE) Ur Barbiturates Screen (NEGATIVE) Ur Phencyclidine Scrn (NEGATIVE) Ur Amphetamines Screen (NEGATIVE) U Benzodiazepines Scrn (NEGATIVE) U Oth Cocaine Metabols (NEGATIVE) U Cannabinoids Screen (NEGATIVE) 08/17/18 08/17/18 08/17/18 Range/Units 23:46 20:40 16:41 WBC (4.8-10.8) K/uL RBC (3.80-5.20) Mil/uL Hgb (11.0-16.0) g/dL Hct (34.0-47.0) % MCV (81.0-99.0) fL MCH (27.0-31.0) pg MCHC (33.0-37.0) g/dL RDW (11.5-14.5) % Plt Count (130-400) K/uL MPV (7.2-11.7) fL Neut % (Auto) (50.0-75.0) % Lymph % (Auto) (20.0-40.0) % Woods % (Auto) (0.0-10.0) % Eos % (Auto) (0.0-4.0) % Baso % (Auto) (0.0-2.0) % Neut # (Auto) (1.8-7.0) K/uL Lymph # (Auto) (1.0-4.3) K/uL Woods # (Auto) (0.0-0.8) K/uL Eos # (Auto) (0.0-0.7) K/uL Baso # (Auto) (0.0-0.2) K/uL APTT (21-34) SECONDS Sodium (132-148) mmol/L Potassium (3.6-5.2) mmol/L Chloride (98-107) mmol/L Carbon Dioxide (22-30) mmol/L Anion Gap (10-20) BUN (7-17) mg/dL Creatinine (0.7-1.2) mg/dL Est GFR ( Amer) Est GFR (Non-Af Amer) POC Glucose (mg/dL) 123 H 85 (65-110) mg/dL Random Glucose (65-105) mg/dL Calcium (8.6-10.4) mg/dl Phosphorus (2.5-4.5) mg/dL Magnesium (1.6-2.3) mg/dL Total Bilirubin (0.2-1.3) mg/dL AST (14-36) U/L ALT (9-52) U/L Alkaline Phosphatase (38-126) U/L Total Creatine Kinase 120 (30-135) U/L CK-MB (Mass) 6.24 H (0.0-3.38) ng/mL Troponin I 7.8000 H* (0.00-0.120) ng/mL Total Protein (6.3-8.3) g/dL Albumin (3.5-5.0) g/dL Globulin (2.2-3.9) gm/dL Albumin/Globulin Ratio (1.0-2.1) Free T3 pg/mL (2.77-5.27) pg/mL TSH 3rd Generation (0.46-4.68) mIU/L Urine Opiates Screen (NEGATIVE) Urine Methadone Screen (NEGATIVE) Ur Barbiturates Screen (NEGATIVE) Ur Phencyclidine Scrn (NEGATIVE) Ur Amphetamines Screen (NEGATIVE) U Benzodiazepines Scrn (NEGATIVE) U Oth Cocaine Metabols (NEGATIVE) U Cannabinoids Screen (NEGATIVE) 08/17/18 Range/Units 15:22 WBC (4.8-10.8) K/uL RBC (3.80-5.20) Mil/uL Hgb (11.0-16.0) g/dL Hct (34.0-47.0) % MCV (81.0-99.0) fL MCH (27.0-31.0) pg MCHC (33.0-37.0) g/dL RDW (11.5-14.5) % Plt Count (130-400) K/uL MPV (7.2-11.7) fL Neut % (Auto) (50.0-75.0) % Lymph % (Auto) (20.0-40.0) % Woods % (Auto) (0.0-10.0) % Eos % (Auto) (0.0-4.0) % Baso % (Auto) (0.0-2.0) % Neut # (Auto) (1.8-7.0) K/uL Lymph # (Auto) (1.0-4.3) K/uL Woods # (Auto) (0.0-0.8) K/uL Eos # (Auto) (0.0-0.7) K/uL Baso # (Auto) (0.0-0.2) K/uL APTT (21-34) SECONDS Sodium (132-148) mmol/L Potassium (3.6-5.2) mmol/L Chloride (98-107) mmol/L Carbon Dioxide (22-30) mmol/L Anion Gap (10-20) BUN (7-17) mg/dL Creatinine (0.7-1.2) mg/dL Est GFR ( Amer) Est GFR (Non-Af Amer) POC Glucose (mg/dL) (65-110) mg/dL Random Glucose (65-105) mg/dL Calcium (8.6-10.4) mg/dl Phosphorus (2.5-4.5) mg/dL Magnesium (1.6-2.3) mg/dL Total Bilirubin (0.2-1.3) mg/dL AST (14-36) U/L ALT (9-52) U/L Alkaline Phosphatase (38-126) U/L Total Creatine Kinase (30-135) U/L CK-MB (Mass) (0.0-3.38) ng/mL Troponin I (0.00-0.120) ng/mL Total Protein (6.3-8.3) g/dL Albumin (3.5-5.0) g/dL Globulin (2.2-3.9) gm/dL Albumin/Globulin Ratio (1.0-2.1) Free T3 pg/mL (2.77-5.27) pg/mL TSH 3rd Generation (0.46-4.68) mIU/L Urine Opiates Screen Negative (NEGATIVE) Urine Methadone Screen Negative (NEGATIVE) Ur Barbiturates Screen Negative (NEGATIVE) Ur Phencyclidine Scrn Negative (NEGATIVE) Ur Amphetamines Screen Negative (NEGATIVE) U Benzodiazepines Scrn Negative (NEGATIVE) U Oth Cocaine Metabols Negative (NEGATIVE) U Cannabinoids Screen Negative (NEGATIVE) Laboratory Results - last 24 hr 08/17/18 08/17/18 08/17/18 15:22 16:41 20:40 WBC RBC Hgb Hct MCV MCH MCHC RDW Plt Count MPV Neut % (Auto) Lymph % (Auto) Woods % (Auto) Eos % (Auto) Baso % (Auto) Neut # (Auto) Lymph # (Auto) Woods # (Auto) Eos # (Auto) Baso # (Auto) APTT Sodium Potassium Chloride Carbon Dioxide Anion Gap BUN Creatinine Est GFR ( Amer) Est GFR (Non-Af Amer) POC Glucose (mg/dL) 85 Random Glucose Calcium Phosphorus Magnesium Total Bilirubin AST ALT Alkaline Phosphatase Total Creatine Kinase 120 CK-MB (Mass) 6.24 H Troponin I 7.8000 H* Total Protein Albumin Globulin Albumin/Globulin Ratio Free T3 pg/mL TSH 3rd Generation Urine Opiates Screen Negative Urine Methadone Screen Negative Ur Barbiturates Screen Negative Ur Phencyclidine Scrn Negative Ur Amphetamines Screen Negative U Benzodiazepines Scrn Negative U Oth Cocaine Metabols Negative U Cannabinoids Screen Negative 08/17/18 08/18/18 08/18/18 23:46 05:13 06:11 WBC 10.5 RBC 3.55 L Hgb 12.0 Hct 34.9 MCV 98.2 MCH 33.7 H MCHC 34.3 RDW 12.8 Plt Count 232 MPV 9.2 Neut % (Auto) 67.8 Lymph % (Auto) 18.8 L Woods % (Auto) 12.9 H Eos % (Auto) 0.1 Baso % (Auto) 0.4 Neut # (Auto) 7.1 H Lymph # (Auto) 2.0 Woods # (Auto) 1.3 H Eos # (Auto) 0.0 Baso # (Auto) 0.0 APTT Sodium Potassium Chloride Carbon Dioxide Anion Gap BUN Creatinine Est GFR ( Amer) Est GFR (Non-Af Amer) POC Glucose (mg/dL) 123 H 111 H Random Glucose Calcium Phosphorus Magnesium Total Bilirubin AST ALT Alkaline Phosphatase Total Creatine Kinase CK-MB (Mass) Troponin I Total Protein Albumin Globulin Albumin/Globulin Ratio Free T3 pg/mL TSH 3rd Generation Urine Opiates Screen Urine Methadone Screen Ur Barbiturates Screen Ur Phencyclidine Scrn Ur Amphetamines Screen U Benzodiazepines Scrn U Oth Cocaine Metabols U Cannabinoids Screen 08/18/18 08/18/18 08/18/18 06:11 06:11 06:11 WBC RBC Hgb Hct MCV MCH MCHC RDW Plt Count MPV Neut % (Auto) Lymph % (Auto) Woods % (Auto) Eos % (Auto) Baso % (Auto) Neut # (Auto) Lymph # (Auto) Woods # (Auto) Eos # (Auto) Baso # (Auto) APTT 43 H D Sodium 142 Potassium 4.4 Chloride 111 H Carbon Dioxide 23 Anion Gap 12 BUN 44 H Creatinine 1.1 Est GFR ( Amer) 60 Est GFR (Non-Af Amer) 49 POC Glucose (mg/dL) Random Glucose 103 Calcium 8.6 Phosphorus 3.5 Magnesium 2.3 Total Bilirubin 0.7 AST 52 H D ALT 72 H D Alkaline Phosphatase 132 H D Total Creatine Kinase 92 CK-MB (Mass) 3.71 H Troponin I 5.0900 H* Total Protein 6.3 Albumin 3.5 Globulin 2.8 Albumin/Globulin Ratio 1.3 Free T3 pg/mL 2.71 L TSH 3rd Generation 4.63 Urine Opiates Screen Urine Methadone Screen Ur Barbiturates Screen Ur Phencyclidine Scrn Ur Amphetamines Screen U Benzodiazepines Scrn U Oth Cocaine Metabols U Cannabinoids Screen 08/18/18 14:25 WBC RBC Hgb Hct MCV MCH MCHC RDW Plt Count MPV Neut % (Auto) Lymph % (Auto) Woods % (Auto) Eos % (Auto) Baso % (Auto) Neut # (Auto) Lymph # (Auto) Woods # (Auto) Eos # (Auto) Baso # (Auto) APTT 57 H D Sodium Potassium Chloride Carbon Dioxide Anion Gap BUN Creatinine Est GFR ( Amer) Est GFR (Non-Af Amer) POC Glucose (mg/dL) Random Glucose Calcium Phosphorus Magnesium Total Bilirubin AST ALT Alkaline Phosphatase Total Creatine Kinase CK-MB (Mass) Troponin I Total Protein Albumin Globulin Albumin/Globulin Ratio Free T3 pg/mL TSH 3rd Generation Urine Opiates Screen Urine Methadone Screen Ur Barbiturates Screen Ur Phencyclidine Scrn Ur Amphetamines Screen U Benzodiazepines Scrn U Oth Cocaine Metabols U Cannabinoids Screen Critical Care Progress Note - Nutrition Nutrition: Nutrition Category Date Time Status Heart Healthy Diet [DIET] Diets 08/17/18 Dinner Active Attending/Attestation - Attestation I have personally seen and examined this patient.: Yes I have fully participated in the care of the patient.: Yes I have reviewed all pertinent clinical information: Yes Notes (Text): 08/18/18 15:57 Today: August The Patient was seen and examined at the bedside, Medical records reviewed, and management issues were discussed and formulated with the house staff. I have reviewed all the relevant clinical, laboratory, hemodynamic, radiographic data and medications Events reviewed Pain issues, skin care, head of the bed elevation, glycemic control were addressed. Agree with above resident's assessment and treatment plans of care as transcribed in Dr. Gill's note.
[2018-08-18] MEDS ORDERED: Pneumoc 13 Val Conjugate Vaccine Inj IM ONE (12:45)
[2018-08-18] MEDS ORDERED: Heparin25000 units/250ml 1/2NS 25,000 UNITS/250 ML BAG IV PRN (19:31)
[2018-08-18 21:10] LABS: CREATININE, RANDOM URINE 131.4 mg/dL
--- NOTE | 2018-08-18 22:26 | CP.PCM.PN ---
Subjective - Date & Time of Evaluation Date of Evaluation: 08/18/18 Time of Evaluation: 17:20 - Subjective Subjective: Patient seen and evaluated Denies chest pain and dyspnea On Heparin drip, ASA and Plavix For PCI tomorrow at [facility] Objective - Vital Signs/Intake and Output Vital Signs (last 24 hours): Temp Pulse Resp BP Pulse Ox 99.1 F 72 20 104/47 L 96 08/18/18 20:00 08/18/18 21:19 08/18/18 21:19 08/18/18 21:19 08/18/18 19:19 Intake and Output: 08/18/18 08/19/18 18:59 06:59 Intake Total 1692.2 261.3 Output Total 500 250 Balance 1192.2 11.3 - Medications Medications: Current Medications Aspirin (Aspirin Chewable) 81 mg PO DAILY [facility] Last Admin: 08/18/18 10:38 Dose: 81 mg Clopidogrel Bisulfate (Plavix) 75 mg PO DAILY [facility] Last Admin: 08/18/18 10:38 Dose: 75 mg Famotidine (Pepcid) 20 mg IVP DAILY [facility] Last Admin: 08/18/18 10:38 Dose: 20 mg Sodium Chloride (Sodium Chloride 0.9%) 1,000 mls @ 80 mls/hr IV .[id number] [facility] Last Admin: 08/18/18 15:08 Dose: 80 mls/hr Heparin Sodium/Sodium Chloride (Heparin 59601 Units/250ml 1/2 Normal Saline) 25,000 units in 250 mls @ 6.192 mls/hr IV .Q24H PRN; Protocol PRN Reason: PROTOCOL Pneumococcal Polyvalent Vaccine (Pneumovax 23 Vaccine) 0.5 ml IM .ONCE ONE Stop: 08/21/18 13:46 Rosuvastatin Calcium (Crestor) 20 mg PO HS [facility] Last Admin: 08/18/18 21:37 Dose: 20 mg - Labs Labs: 08/18/18 06:11 08/18/18 06:11 PT 11.7 SECONDS (9.7-12.2) 08/17/18 11:17 INR 1.1 08/17/18 11:17 APTT 48 SECONDS (21-34) H D 08/18/18 20:38
[2018-08-19] MEDS: Sodium Chloride 0.9% 1,000 ML IV SCH (04:16)
[2018-08-19 06:53] LABS: BASO % 0.3 % (0.0-2.0); EOS % 0.1 % (0.0-4.0); HEMOGLOBIN 10.7 g/dL (11.0-16.0); LYMPH # 1.7 K/uL (1.0-4.3); LYMPH % 16.6 % (20.0-40.0); MEAN CELL VOLUME 97.4 fL (81.0-99.0); MEAN CORPUSCULAR HEMOGLOBIN 33.9 pg (27.0-31.0); MEAN CORPUSCULAR HGB CONC 34.8 g/dL (33.0-37.0); MONO # 1.2 K/uL (0.0-0.8); NEUT # 7.2 K/uL (1.8-7.0); RBC 3.15 Mil/uL (3.80-5.20); RED CELL DISTRIBUTION WIDTH 12.8 % (11.5-14.5); WHITE BLOOD COUNT 10.1 K/uL (4.8-10.8)
[2018-08-19 07:20] LABS: ALBUMIN 2.9 g/dL (3.5-5.0); ALT/SGPT 48 U/L (9-52); AST/SGOT 31 U/L (14-36); BLOOD UREA NITROGEN 29 mg/dL (7-17); GFR NON-AFRICAN AMERICAN > 60
[2018-08-19] MEDS ORDERED: Potassium Chloride 20 mEq ER Tab PO ONE (07:44)
--- NOTE | 2018-08-19 09:14 | CP.PCM.PN ---
Subjective - Date & Time of Evaluation Date of Evaluation: 08/19/18 Time of Evaluation: 09:00 - Subjective Subjective: Patient was seen and examined by me She is pending PCI today at [facility] This morning when I saw her she reported feeling sore in right leg as she is wearing a bracing and the TVP is on that side. Otherwise denied shortness of breath, denied chest pain, denied headache and denied light headedness. Per cardiology, she may or may not need a pacemaker afterwards. She remains on Plavix, ASA, heparin ggt, crestor at this time. Objective - Vital Signs/Intake and Output Vital Signs (last 24 hours): Temp Pulse Resp BP Pulse Ox 98.6 F 72 22 109/47 L 99 08/19/18 08:00 08/19/18 08:00 08/19/18 08:00 08/19/18 07:19 08/19/18 08:00 Intake and Output: 08/19/18 08/19/18 06:59 18:59 Intake Total 1045.2 174.2 Output Total 650 Balance 395.2 174.2 - Medications Medications: Current Medications Aspirin (Aspirin Chewable) 81 mg PO DAILY [facility] Last Admin: 08/19/18 09:09 Dose: 81 mg Clopidogrel Bisulfate (Plavix) 75 mg PO DAILY [facility] Last Admin: 08/19/18 09:09 Dose: 75 mg Famotidine (Pepcid) 20 mg IVP DAILY [facility] Last Admin: 08/19/18 09:09 Dose: 20 mg Sodium Chloride (Sodium Chloride 0.9%) 1,000 mls @ 80 mls/hr IV .[id number] [facility] Last Admin: 08/19/18 04:16 Dose: 80 mls/hr Heparin Sodium/Sodium Chloride (Heparin 43288 Units/250ml 1/2 Normal Saline) 25,000 units in 250 mls @ 6.192 mls/hr IV .Q24H PRN; Protocol PRN Reason: PROTOCOL Last Admin: 08/19/18 04:16 Dose: 12 units/kg/hr, 6.192 mls/hr Pneumococcal Polyvalent Vaccine (Pneumovax 23 Vaccine) 0.5 ml IM .ONCE ONE Stop: 08/21/18 13:46 Rosuvastatin Calcium (Crestor) 20 mg PO HS [facility] Last Admin: 08/18/18 21:37 Dose: 20 mg - Labs Labs: 08/19/18 06:46 08/19/18 06:46 PT 11.7 SECONDS (9.7-12.2) 08/17/18 11:17 INR 1.1 08/17/18 11:17 APTT 45 SECONDS (21-34) H 08/19/18 06:46 - Constitutional Appears: No Acute Distress, Unkempt - Head Exam Head Exam: ATRAUMATIC, NORMAL INSPECTION, NORMOCEPHALIC - ENT Exam ENT Exam: Mucous Membranes Moist - Respiratory Exam Respiratory Exam: Clear to Ausculation Bilateral, NORMAL BREATHING PATTERN - Cardiovascular Exam Cardiovascular Exam: REGULAR RHYTHM - GI/Abdominal Exam GI & Abdominal Exam: Soft, Normal Bowel Sounds. absent: Distended, Firm, Guarding, Rigid, Tenderness - Neurological Exam Neurological Exam: Alert, Awake, Oriented x3 Neuro motor strength exam: Left Upper Extremity: 5, Right Upper Extremity: 5 - Psychiatric Exam Psychiatric exam: Normal Affect, Normal Mood - Skin Skin Exam: Pallor, Warm Assessment and Plan - Assessment and Plan (Free Text) Assessment: 1 NSTEMI- Acute OR 08/19: Patient is pending PCI at [facility] [place]. Remains on heparin ggt, plavix, ASA, statin. 08/18: Patient reports no chest pain and no shortness of breath this morning when I saw. Possible PCI soon depending on renal function which appears to be better this morning. ASA, Plavix, statin, and remains on heparin ggt at this time. 08/17: First troponin 8.1, EKG showing severe bradycardia and Twvae inversions. started on heparin ggt, Plavix loading 300 and then 75 daily, ASA 325 already and 81 daily. Large dose of statin given Spoke with cardiology and per cardiololgy patient should be NPO except for medications. There will be additional troponins q3hrs starting at 4PM, repeat EKG A stat echo is pending at this time. Slow IVF at this moment. Repeat CXRAY tommow in case of fluid overload. 2 Bradycardia, maybe secondary to the OR patient has 08/19: Has TVP, HR in the 70s, per my discussion with cardiology patient probably will need a pacemaker afterwards PCI 08/18: Currently has a TVP, HR is in the 70s. Light headedness resolved for the time being. 08/17: For now place temporary pacer pads/zol pads on patient. Repeat EKG For now not symptompatic however previously was. Have atropine nearby bedside 3 Acute vs chronic kidney disease 08/19: Numbers better, possibly the WES was secondary to the decreased hemodynamics from the OR 08/18: Creatine decreased to 1.1, on slow IVF at the moment. 08/17: this may make giving contrast complicated as the creatine is 1.9 Started on slow IVF for now. Consult nephrology 3 Hx of smoking 08/17: smoking since age 13 or 14
[2018-08-19] MEDS ORDERED: Pneumoc 13 Val Conjugate Vaccine Inj IM ONE (10:00)
--- NOTE | 2018-08-19 11:17 | CP.CCUPN ---
<Desire Gill L - Last Filed: 08/19/18 17:33> CCU Subjective - Physician Review Subjective (Free Text): Critical Care Progress Note Patient examined at bedside. No acute events overnight. Offers no complaints at this time. Denies fevers, chills, headache, dizziness, chest pain, shortness of breath, abdominal pain. Patient awaiting transfer to [facility] for PCI. Critical Care Time Spent (in minutes): 35 CCU Objective - Vital Signs / Intake & Output Vital Signs (Last 4 hours): Vital Signs Temp Pulse Resp BP Pulse Ox 08/19/18 09:18 72 20 107/49 L 99 08/19/18 09:00 72 15 99 08/19/18 08:19 72 19 96/47 L 98 08/19/18 08:00 98.6 F 72 22 99 08/19/18 07:19 72 22 109/47 L 98 Intake and Output (Last 8hrs): Intake & Output 08/18/18 08/19/18 08/19/18 22:59 06:59 14:59 Intake Total 936.8 696.8 261.3 Output Total 250 400 Balance 686.8 296.8 261.3 Weight 113 lb 8 oz Intake: Intake, IV Amount 696.8 696.8 261.3 Left Hand 640 640 240 Left Hand Y-Port 56.8 56.8 21.3 Oral 240 Output: Urine 250 400 Urine, Voided 250 400 Other: # Bowel Movements 0 - Physical Exam Head: Positive for: Atraumatic, Normocephalic Pupils: Positive for: PERRL Extroacular Muscles: Positive for: EOMI Conjunctiva: Positive for: Normal Mouth: Positive for: Moist Mucous Membranes Neck: Positive for: Normal Range of Motion Respiratory/Chest: Positive for: Clear to Auscultation, Good Air Exchange. Negative for: Respiratory Distress Cardiovascular: Positive for: Regular Rate and Rhythm, Normal S1, S2 Abdomen: Positive for: Normal Bowel Sounds. Negative for: Tenderness, Distention, Peritoneal Signs Upper Extremity: Positive for: Normal Inspection, Normal ROM. Negative for: Cyanosis, Edema Lower Extremity: Positive for: Normal Inspection, NORMAL PULSES. Negative for: Edema, CALF TENDERNESS Neurological: Positive for: GCS=15, CN II-XII Intact, Speech Normal Skin: Positive for: Warm, Dry, Normal Color. Negative for: Rashes Psychiatric: Positive for: Alert, Oriented x 3, Normal Insight, Normal Concentration - Medications Active Medications: Active Medications Generic Name Dose Route Start Last Admin Trade Name Shashank PRN Reason Stop Dose Admin Aspirin 81 mg 08/18/18 10:00 08/19/18 09:09 Aspirin Chewable PO 81 mg DAILY SARAH Administration Clopidogrel Bisulfate 75 mg 08/18/18 10:00 08/19/18 09:09 Plavix PO 75 mg DAILY SARAH Administration Famotidine 20 mg 08/18/18 10:00 08/19/18 09:09 Pepcid IVP 20 mg DAILY SARAH Administration Sodium Chloride 1,000 mls @ 80 mls/hr 08/17/18 19:28 08/19/18 04:16 Sodium Chloride 0.9% IV 80 mls/hr .[id number] SARAH Administration Heparin Sodium/Sodium Chloride 25,000 units in 250 mls @ 6.192 mls/hr 08/18/18 19:31 08/19/18 04:16 Heparin 19958 Units/250ml 1/2 Normal Saline IV 12 units/kg/hr .Q24H PRN 6.192 mls/hr PROTOCOL Administration Protocol 12 UNITS/KG/HR Pneumococcal Polyvalent Vaccine 0.5 ml 08/21/18 13:45 Pneumovax 23 Vaccine IM 08/21/18 13:46 .ONCE ONE Rosuvastatin Calcium 20 mg 08/17/18 22:00 08/18/18 21:37 Crestor PO 20 mg HS SARAH Administration - Patient Studies Lab Studies: Microbiology Studies 08/17/18 16:41 MRSA Culture (Admit) - Final Nose MRSA NOT DETECTED Lab Studies 08/19/18 08/19/18 08/19/18 Range/Units 06:46 06:46 06:46 WBC 10.1 (4.8-10.8) K/uL RBC 3.15 L (3.80-5.20) Mil/uL Hgb 10.7 L (11.0-16.0) g/dL Hct 30.7 L (34.0-47.0) % MCV 97.4 (81.0-99.0) fL MCH 33.9 H (27.0-31.0) pg MCHC 34.8 (33.0-37.0) g/dL RDW 12.8 (11.5-14.5) % Plt Count 217 (130-400) K/uL MPV 9.0 (7.2-11.7) fL Neut % (Auto) 71.0 (50.0-75.0) % Lymph % (Auto) 16.6 L (20.0-40.0) % [place] % (Auto) 12.0 H (0.0-10.0) % Eos % (Auto) 0.1 (0.0-4.0) % Baso % (Auto) 0.3 (0.0-2.0) % Neut # (Auto) 7.2 H (1.8-7.0) K/uL Lymph # (Auto) 1.7 (1.0-4.3) K/uL [place] # (Auto) 1.2 H (0.0-0.8) K/uL Eos # (Auto) 0.0 (0.0-0.7) K/uL Baso # (Auto) 0.0 (0.0-0.2) K/uL APTT 45 H (21-34) SECONDS Sodium 141 (132-148) mmol/L Potassium 3.4 L (3.6-5.2) mmol/L Chloride 113 H (98-107) mmol/L Carbon Dioxide 20 L (22-30) mmol/L Anion Gap 12 (10-20) BUN 29 H (7-17) mg/dL Creatinine 0.8 (0.7-1.2) mg/dL Est GFR ( Amer) > 60 Est GFR (Non-Af Amer) > 60 POC Glucose (mg/dL) (65-110) mg/dL Random Glucose 101 (65-105) mg/dL Calcium 8.0 L (8.6-10.4) mg/dl Phosphorus 2.6 (2.5-4.5) mg/dL Magnesium 2.2 (1.6-2.3) mg/dL Total Bilirubin 0.3 (0.2-1.3) mg/dL AST 31 (14-36) U/L ALT 48 (9-52) U/L Alkaline Phosphatase 115 (38-126) U/L Total Protein 5.6 L (6.3-8.3) g/dL Albumin 2.9 L (3.5-5.0) g/dL Globulin 2.7 (2.2-3.9) gm/dL Albumin/Globulin Ratio 1.0 (1.0-2.1) Ur Random Creatinine mg/dL U Random Total Protein (0.0-12.0) mg/dL 08/19/18 08/19/18 08/18/18 Range/Units 05:58 00:21 20:38 WBC (4.8-10.8) K/uL RBC (3.80-5.20) Mil/uL Hgb (11.0-16.0) g/dL Hct (34.0-47.0) % MCV (81.0-99.0) fL MCH (27.0-31.0) pg MCHC (33.0-37.0) g/dL RDW (11.5-14.5) % Plt Count (130-400) K/uL MPV (7.2-11.7) fL Neut % (Auto) (50.0-75.0) % Lymph % (Auto) (20.0-40.0) % [place] % (Auto) (0.0-10.0) % Eos % (Auto) (0.0-4.0) % Baso % (Auto) (0.0-2.0) % Neut # (Auto) (1.8-7.0) K/uL Lymph # (Auto) (1.0-4.3) K/uL [place] # (Auto) (0.0-0.8) K/uL Eos # (Auto) (0.0-0.7) K/uL Baso # (Auto) (0.0-0.2) K/uL APTT 48 H D (21-34) SECONDS Sodium (132-148) mmol/L Potassium (3.6-5.2) mmol/L Chloride (98-107) mmol/L Carbon Dioxide (22-30) mmol/L Anion Gap (10-20) BUN (7-17) mg/dL Creatinine (0.7-1.2) mg/dL Est GFR ( Amer) Est GFR (Non-Af Amer) POC Glucose (mg/dL) 90 98 (65-110) mg/dL Random Glucose (65-105) mg/dL Calcium (8.6-10.4) mg/dl Phosphorus (2.5-4.5) mg/dL Magnesium (1.6-2.3) mg/dL Total Bilirubin (0.2-1.3) mg/dL AST (14-36) U/L ALT (9-52) U/L Alkaline Phosphatase (38-126) U/L Total Protein (6.3-8.3) g/dL Albumin (3.5-5.0) g/dL Globulin (2.2-3.9) gm/dL Albumin/Globulin Ratio (1.0-2.1) Ur Random Creatinine mg/dL U Random Total Protein (0.0-12.0) mg/dL 08/18/18 08/18/18 08/18/18 Range/Units 20:35 17:35 14:25 WBC (4.8-10.8) K/uL RBC (3.80-5.20) Mil/uL Hgb (11.0-16.0) g/dL Hct (34.0-47.0) % MCV (81.0-99.0) fL MCH (27.0-31.0) pg MCHC (33.0-37.0) g/dL RDW (11.5-14.5) % Plt Count (130-400) K/uL MPV (7.2-11.7) fL Neut % (Auto) (50.0-75.0) % Lymph % (Auto) (20.0-40.0) % [place] % (Auto) (0.0-10.0) % Eos % (Auto) (0.0-4.0) % Baso % (Auto) (0.0-2.0) % Neut # (Auto) (1.8-7.0) K/uL Lymph # (Auto) (1.0-4.3) K/uL [place] # (Auto) (0.0-0.8) K/uL Eos # (Auto) (0.0-0.7) K/uL Baso # (Auto) (0.0-0.2) K/uL APTT 57 H D (21-34) SECONDS Sodium (132-148) mmol/L Potassium (3.6-5.2) mmol/L Chloride (98-107) mmol/L Carbon Dioxide (22-30) mmol/L Anion Gap (10-20) BUN (7-17) mg/dL Creatinine (0.7-1.2) mg/dL Est GFR ( Amer) Est GFR (Non-Af Amer) POC Glucose (mg/dL) 105 (65-110) mg/dL Random Glucose (65-105) mg/dL Calcium (8.6-10.4) mg/dl Phosphorus (2.5-4.5) mg/dL Magnesium (1.6-2.3) mg/dL Total Bilirubin (0.2-1.3) mg/dL AST (14-36) U/L ALT (9-52) U/L Alkaline Phosphatase (38-126) U/L Total Protein (6.3-8.3) g/dL Albumin (3.5-5.0) g/dL Globulin (2.2-3.9) gm/dL Albumin/Globulin Ratio (1.0-2.1) Ur Random Creatinine 131.4 mg/dL U Random Total Protein 12.0 (0.0-12.0) mg/dL 08/18/18 Range/Units 11:29 WBC (4.8-10.8) K/uL RBC (3.80-5.20) Mil/uL Hgb (11.0-16.0) g/dL Hct (34.0-47.0) % MCV (81.0-99.0) fL MCH (27.0-31.0) pg MCHC (33.0-37.0) g/dL RDW (11.5-14.5) % Plt Count (130-400) K/uL MPV (7.2-11.7) fL Neut % (Auto) (50.0-75.0) % Lymph % (Auto) (20.0-40.0) % [place] % (Auto) (0.0-10.0) % Eos % (Auto) (0.0-4.0) % Baso % (Auto) (0.0-2.0) % Neut # (Auto) (1.8-7.0) K/uL Lymph # (Auto) (1.0-4.3) K/uL [place] # (Auto) (0.0-0.8) K/uL Eos # (Auto) (0.0-0.7) K/uL Baso # (Auto) (0.0-0.2) K/uL APTT (21-34) SECONDS Sodium (132-148) mmol/L Potassium (3.6-5.2) mmol/L Chloride (98-107) mmol/L Carbon Dioxide (22-30) mmol/L Anion Gap (10-20) BUN (7-17) mg/dL Creatinine (0.7-1.2) mg/dL Est GFR ( Amer) Est GFR (Non-Af Amer) POC Glucose (mg/dL) 122 H (65-110) mg/dL Random Glucose (65-105) mg/dL Calcium (8.6-10.4) mg/dl Phosphorus (2.5-4.5) mg/dL Magnesium (1.6-2.3) mg/dL Total Bilirubin (0.2-1.3) mg/dL AST (14-36) U/L ALT (9-52) U/L Alkaline Phosphatase (38-126) U/L Total Protein (6.3-8.3) g/dL Albumin (3.5-5.0) g/dL Globulin (2.2-3.9) gm/dL Albumin/Globulin Ratio (1.0-2.1) Ur Random Creatinine mg/dL U Random Total Protein (0.0-12.0) mg/dL Laboratory Results - last 24 hr 08/18/18 08/18/18 08/18/18 11:29 14:25 17:35 WBC RBC Hgb Hct MCV MCH MCHC RDW Plt Count MPV Neut % (Auto) Lymph % (Auto) [place] % (Auto) Eos % (Auto) Baso % (Auto) Neut # (Auto) Lymph # (Auto) [place] # (Auto) Eos # (Auto) Baso # (Auto) APTT 57 H D Sodium Potassium Chloride Carbon Dioxide Anion Gap BUN Creatinine Est GFR ( Amer) Est GFR (Non-Af Amer) POC Glucose (mg/dL) 122 H 105 Random Glucose Calcium Phosphorus Magnesium Total Bilirubin AST ALT Alkaline Phosphatase Total Protein Albumin Globulin Albumin/Globulin Ratio Ur Random Creatinine U Random Total Protein 08/18/18 08/18/18 08/19/18 20:35 20:38 00:21 WBC RBC Hgb Hct MCV MCH MCHC RDW Plt Count MPV Neut % (Auto) Lymph % (Auto) [place] % (Auto) Eos % (Auto) Baso % (Auto) Neut # (Auto) Lymph # (Auto) [place] # (Auto) Eos # (Auto) Baso # (Auto) APTT 48 H D Sodium Potassium Chloride Carbon Dioxide Anion Gap BUN Creatinine Est GFR ( Amer) Est GFR (Non-Af Amer) POC Glucose (mg/dL) 98 Random Glucose Calcium Phosphorus Magnesium Total Bilirubin AST ALT Alkaline Phosphatase Total Protein Albumin Globulin Albumin/Globulin Ratio Ur Random Creatinine 131.4 U Random Total Protein 12.0 08/19/18 08/19/18 08/19/18 05:58 06:46 06:46 WBC 10.1 RBC 3.15 L Hgb 10.7 L Hct 30.7 L MCV 97.4 MCH 33.9 H MCHC 34.8 RDW 12.8 Plt Count 217 MPV 9.0 Neut % (Auto) 71.0 Lymph % (Auto) 16.6 L [place] % (Auto) 12.0 H Eos % (Auto) 0.1 Baso % (Auto) 0.3 Neut # (Auto) 7.2 H Lymph # (Auto) 1.7 [place] # (Auto) 1.2 H Eos # (Auto) 0.0 Baso # (Auto) 0.0 APTT Sodium 141 Potassium 3.4 L Chloride 113 H Carbon Dioxide 20 L Anion Gap 12 BUN 29 H Creatinine 0.8 Est GFR ( Amer) > 60 Est GFR (Non-Af Amer) > 60 POC Glucose (mg/dL) 90 Random Glucose 101 Calcium 8.0 L Phosphorus 2.6 Magnesium 2.2 Total Bilirubin 0.3 AST 31 ALT 48 Alkaline Phosphatase 115 Total Protein 5.6 L Albumin 2.9 L Globulin 2.7 Albumin/Globulin Ratio 1.0 Ur Random Creatinine U Random Total Protein 08/19/18 06:46 WBC RBC Hgb Hct MCV MCH MCHC RDW Plt Count MPV Neut % (Auto) Lymph % (Auto) [place] % (Auto) Eos % (Auto) Baso % (Auto) Neut # (Auto) Lymph # (Auto) [place] # (Auto) Eos # (Auto) Baso # (Auto) APTT 45 H Sodium Potassium Chloride Carbon Dioxide Anion Gap BUN Creatinine Est GFR ( Amer) Est GFR (Non-Af Amer) POC Glucose (mg/dL) Random Glucose Calcium Phosphorus Magnesium Total Bilirubin AST ALT Alkaline Phosphatase Total Protein Albumin Globulin Albumin/Globulin Ratio Ur Random Creatinine U Random Total Protein Fingerstick Blood Sugar Results: 90 Review of Systems - Review of Systems All systems: reviewed and no additional remarkable complaints except (as stated in HPI) Critical Care Progress Note - Nutrition Nutrition: Nutrition Category Date Time Status NPO Diet [DIET] Diets 08/19/18 Breakfast Active Assessment/Plan - Assessment and Plan (Free Text) Assessment: Patient is a 68 year old female with past medical history of HTN presenting with chief complaint of chest pain that began approximately 4 days ago, was found to have severe bradycardia with HR in 40s and elevated troponins, now admitted to ICU for workup and management of NSTEMI. Plan: Neuro: - AAOx3 - Maintain normothermia Pulm: - CXR from this AM shows no active disease - Nasal cannula - Maintain SpO2>92% CV: - Currently hemodynamically stable, no pressors required at this time - Cardiology Dr. Degroot consulted. Appreciate recs. - Continue aspirin 81 mg PO daily, plavix 75 mg PO daily, rosuvastatin 20 mg PO HS - ECHO shows LVEF 65-70%, discontinuity of interatrial septum suggestive of ASD - s/p cardiac cath, proximal RCA 100% occluded, patent LAD, left circumflex patent - plan for transfer to [place] for PCI GI: - NPO - Pepcid 20 mg IV daily Renal: - ARF improving with IVF - Nephrology consulted. Recs appreciated. - Monitor I and O - NS 80 ccs/hr Endo: - Maintain euglycemia Heme: - Monitor H/H ID: - Afebrile, leukocytosis resolved - No active issues PPX: Pepcid 20 mg IV daily, SCDs Case seen and reviewed with Dr. Sheila Gill PGY-1 - Date & Time Date: 08/19/18 Time: 08:00 <Ralph Sosa - Last Filed: 08/19/18 18:21> CCU Objective - Vital Signs / Intake & Output Vital Signs (Last 4 hours): Vital Signs Pulse Resp BP Pulse Ox 08/19/18 18:00 69 24 84 L 08/19/18 17:18 69 16 122/52 L 83 L 10/19/18 17:00 69 13 80 L 08/19/18 16:51 69 28 H 111/88 72 L 08/19/18 16:45 69 13 Intake and Output (Last 8hrs): Intake & Output 08/19/18 08/19/18 08/19/18 06:59 14:59 22:59 Intake Total 696.8 261.3 Output Total 400 Balance 296.8 261.3 Weight 113 lb 8 oz Intake: Intake, IV Amount 696.8 261.3 Left Hand 640 240 Left Hand Y-Port 56.8 21.3 Output: Urine 400 Urine, Voided 400 Other: # Bowel Movements 0 - Medications Active Medications: Active Medications Generic Name Dose Route Start Last Admin Trade Name Freq PRN Reason Stop Dose Admin Aspirin 81 mg 08/18/18 10:00 08/19/18 09:09 Aspirin Chewable PO 81 mg DAILY SARAH Administration Clopidogrel Bisulfate 75 mg 08/18/18 10:00 08/19/18 09:09 Plavix PO 75 mg DAILY SARAH Administration Enoxaparin Sodium 30 mg 08/20/18 10:00 Lovenox SC DAILY SARAH Famotidine 20 mg 08/18/18 10:00 08/19/18 09:09 Pepcid IVP 20 mg DAILY SARAH Administration Sodium Chloride 1,000 mls @ 80 mls/hr 08/17/18 19:28 08/19/18 04:16 Sodium Chloride 0.9% IV 80 mls/hr .[id number] SARAH Administration Pneumococcal Polyvalent Vaccine 0.5 ml 08/21/18 13:45 Pneumovax 23 Vaccine IM 08/21/18 13:46 .ONCE ONE Rosuvastatin Calcium 20 mg 08/17/18 22:00 08/18/18 21:37 Crestor PO 20 mg HS SARAH Administration - Patient Studies Lab Studies: Microbiology Studies 08/17/18 16:41 MRSA Culture (Admit) - Final Nose MRSA NOT DETECTED Lab Studies 08/19/18 08/19/18 08/19/18 Range/Units 06:46 06:46 06:46 WBC 10.1 (4.8-10.8) K/uL RBC 3.15 L (3.80-5.20) Mil/uL Hgb 10.7 L (11.0-16.0) g/dL Hct 30.7 L (34.0-47.0) % MCV 97.4 (81.0-99.0) fL MCH 33.9 H (27.0-31.0) pg MCHC 34.8 (33.0-37.0) g/dL RDW 12.8 (11.5-14.5) % Plt Count 217 (130-400) K/uL MPV 9.0 (7.2-11.7) fL Neut % (Auto) 71.0 (50.0-75.0) % Lymph % (Auto) 16.6 L (20.0-40.0) % [place] % (Auto) 12.0 H (0.0-10.0) % Eos % (Auto) 0.1 (0.0-4.0) % Baso % (Auto) 0.3 (0.0-2.0) % Neut # (Auto) 7.2 H (1.8-7.0) K/uL Lymph # (Auto) 1.7 (1.0-4.3) K/uL [place] # (Auto) 1.2 H (0.0-0.8) K/uL Eos # (Auto) 0.0 (0.0-0.7) K/uL Baso # (Auto) 0.0 (0.0-0.2) K/uL APTT 45 H (21-34) SECONDS Sodium 141 (132-148) mmol/L Potassium 3.4 L (3.6-5.2) mmol/L Chloride 113 H (98-107) mmol/L Carbon Dioxide 20 L (22-30) mmol/L Anion Gap 12 (10-20) BUN 29 H (7-17) mg/dL Creatinine 0.8 (0.7-1.2) mg/dL Est GFR ( Amer) > 60 Est GFR (Non-Af Amer) > 60 POC Glucose (mg/dL) (65-110) mg/dL Random Glucose 101 (65-105) mg/dL Calcium 8.0 L (8.6-10.4) mg/dl Phosphorus 2.6 (2.5-4.5) mg/dL Magnesium 2.2 (1.6-2.3) mg/dL Total Bilirubin 0.3 (0.2-1.3) mg/dL AST 31 (14-36) U/L ALT 48 (9-52) U/L Alkaline Phosphatase 115 (38-126) U/L Total Protein 5.6 L (6.3-8.3) g/dL Albumin 2.9 L (3.5-5.0) g/dL Globulin 2.7 (2.2-3.9) gm/dL Albumin/Globulin Ratio 1.0 (1.0-2.1) Ur Random Creatinine mg/dL U Random Total Protein (0.0-12.0) mg/dL 08/19/18 08/19/18 08/18/18 Range/Units 05:58 00:21 20:38 WBC (4.8-10.8) K/uL RBC (3.80-5.20) Mil/uL Hgb (11.0-16.0) g/dL Hct (34.0-47.0) % MCV (81.0-99.0) fL MCH (27.0-31.0) pg MCHC (33.0-37.0) g/dL RDW (11.5-14.5) % Plt Count (130-400) K/uL MPV (7.2-11.7) fL Neut % (Auto) (50.0-75.0) % Lymph % (Auto) (20.0-40.0) % [place] % (Auto) (0.0-10.0) % Eos % (Auto) (0.0-4.0) % Baso % (Auto) (0.0-2.0) % Neut # (Auto) (1.8-7.0) K/uL Lymph # (Auto) (1.0-4.3) K/uL [place] # (Auto) (0.0-0.8) K/uL Eos # (Auto) (0.0-0.7) K/uL Baso # (Auto) (0.0-0.2) K/uL APTT 48 H D (21-34) SECONDS Sodium (132-148) mmol/L Potassium (3.6-5.2) mmol/L Chloride (98-107) mmol/L Carbon Dioxide (22-30) mmol/L Anion Gap (10-20) BUN (7-17) mg/dL Creatinine (0.7-1.2) mg/dL Est GFR ( Amer) Est GFR (Non-Af Amer) POC Glucose (mg/dL) 90 98 (65-110) mg/dL Random Glucose (65-105) mg/dL Calcium (8.6-10.4) mg/dl Phosphorus (2.5-4.5) mg/dL Magnesium (1.6-2.3) mg/dL Total Bilirubin (0.2-1.3) mg/dL AST (14-36) U/L ALT (9-52) U/L Alkaline Phosphatase (38-126) U/L Total Protein (6.3-8.3) g/dL Albumin (3.5-5.0) g/dL Globulin (2.2-3.9) gm/dL Albumin/Globulin Ratio (1.0-2.1) Ur Random Creatinine mg/dL U Random Total Protein (0.0-12.0) mg/dL 08/18/18 08/18/18 08/18/18 Range/Units 20:35 17:35 11:29 WBC (4.8-10.8) K/uL RBC (3.80-5.20) Mil/uL Hgb (11.0-16.0) g/dL Hct (34.0-47.0) % MCV (81.0-99.0) fL MCH (27.0-31.0) pg MCHC (33.0-37.0) g/dL RDW (11.5-14.5) % Plt Count (130-400) K/uL MPV (7.2-11.7) fL Neut % (Auto) (50.0-75.0) % Lymph % (Auto) (20.0-40.0) % [place] % (Auto) (0.0-10.0) % Eos % (Auto) (0.0-4.0) % Baso % (Auto) (0.0-2.0) % Neut # (Auto) (1.8-7.0) K/uL Lymph # (Auto) (1.0-4.3) K/uL [place] # (Auto) (0.0-0.8) K/uL Eos # (Auto) (0.0-0.7) K/uL Baso # (Auto) (0.0-0.2) K/uL APTT (21-34) SECONDS Sodium (132-148) mmol/L Potassium (3.6-5.2) mmol/L Chloride (98-107) mmol/L Carbon Dioxide (22-30) mmol/L Anion Gap (10-20) BUN (7-17) mg/dL Creatinine (0.7-1.2) mg/dL Est GFR ( Amer) Est GFR (Non-Af Amer) POC Glucose (mg/dL) 105 122 H (65-110) mg/dL Random Glucose (65-105) mg/dL Calcium (8.6-10.4) mg/dl Phosphorus (2.5-4.5) mg/dL Magnesium (1.6-2.3) mg/dL Total Bilirubin (0.2-1.3) mg/dL AST (14-36) U/L ALT (9-52) U/L Alkaline Phosphatase (38-126) U/L Total Protein (6.3-8.3) g/dL Albumin (3.5-5.0) g/dL Globulin (2.2-3.9) gm/dL Albumin/Globulin Ratio (1.0-2.1) Ur Random Creatinine 131.4 mg/dL U Random Total Protein 12.0 (0.0-12.0) mg/dL Laboratory Results - last 24 hr 08/18/18 08/18/18 08/18/18 11:29 17:35 20:35 WBC RBC Hgb Hct MCV MCH MCHC RDW Plt Count MPV Neut % (Auto) Lymph % (Auto) [place] % (Auto) Eos % (Auto) Baso % (Auto) Neut # (Auto) Lymph # (Auto) [place] # (Auto) Eos # (Auto) Baso # (Auto) APTT Sodium Potassium Chloride Carbon Dioxide Anion Gap BUN Creatinine Est GFR ( Amer) Est GFR (Non-Af Amer) POC Glucose (mg/dL) 122 H 105 Random Glucose Calcium Phosphorus Magnesium Total Bilirubin AST ALT Alkaline Phosphatase Total Protein Albumin Globulin Albumin/Globulin Ratio Ur Random Creatinine 131.4 U Random Total Protein 12.0 08/18/18 08/19/18 08/19/18 20:38 00:21 05:58 WBC RBC Hgb Hct MCV MCH MCHC RDW Plt Count MPV Neut % (Auto) Lymph % (Auto) [place] % (Auto) Eos % (Auto) Baso % (Auto) Neut # (Auto) Lymph # (Auto) [place] # (Auto) Eos # (Auto) Baso # (Auto) APTT 48 H D Sodium Potassium Chloride Carbon Dioxide Anion Gap BUN Creatinine Est GFR ( Amer) Est GFR (Non-Af Amer) POC Glucose (mg/dL) 98 90 Random Glucose Calcium Phosphorus Magnesium Total Bilirubin AST ALT Alkaline Phosphatase Total Protein Albumin Globulin Albumin/Globulin Ratio Ur Random Creatinine U Random Total Protein 08/19/18 08/19/18 08/19/18 06:46 06:46 06:46 WBC 10.1 RBC 3.15 L Hgb 10.7 L Hct 30.7 L MCV 97.4 MCH 33.9 H MCHC 34.8 RDW 12.8 Plt Count 217 MPV 9.0 Neut % (Auto) 71.0 Lymph % (Auto) 16.6 L [place] % (Auto) 12.0 H Eos % (Auto) 0.1 Baso % (Auto) 0.3 Neut # (Auto) 7.2 H Lymph # (Auto) 1.7 [place] # (Auto) 1.2 H Eos # (Auto) 0.0 Baso # (Auto) 0.0 APTT 45 H Sodium 141 Potassium 3.4 L Chloride 113 H Carbon Dioxide 20 L Anion Gap 12 BUN 29 H Creatinine 0.8 Est GFR ( Amer) > 60 Est GFR (Non-Af Amer) > 60 POC Glucose (mg/dL) Random Glucose 101 Calcium 8.0 L Phosphorus 2.6 Magnesium 2.2 Total Bilirubin 0.3 AST 31 ALT 48 Alkaline Phosphatase 115 Total Protein 5.6 L Albumin 2.9 L Globulin 2.7 Albumin/Globulin Ratio 1.0 Ur Random Creatinine U Random Total Protein Critical Care Progress Note - Nutrition Nutrition: Nutrition Category Date Time Status Heart Healthy Diet [DIET] Diets 08/19/18 Lunch Active Attending/Attestation - Attestation I have personally seen and examined this patient.: Yes I have fully participated in the care of the patient.: Yes I have reviewed all pertinent clinical information: Yes Notes (Text): 08/19/18 18:17 I have seen and examined the patient. Medical records, lab studies, and imaging were reviewed by me and a management plan was formulated on multidisciplinary rounds with resident Dr. Gill. I agree with their documented assessment and plan. Patient underwent stenting today, was transferred to [place] today. Awaiting return. Critical Care Time 35 minutes. Multi-disciplinary rounds were performed with house staff, nursing, speech therapy, respiratory therapy, pharmacy and nutrition with integrated input from the primary team/attending and other consulting services. The documented time is cumulative and includes review of patient data/exams/labs/chart review and examination of the patient on rounds and throughout the day; time is exclusive of any procedures or teaching time.
--- NOTE | 2018-08-19 12:40 | CP.PCM.PN ---
Subjective - Date & Time of Evaluation Date of Evaluation: 08/19/18 Time of Evaluation: 12:39 - Subjective Subjective: Patient s/p Unsuccssfel PCI of RCA Medical management Patient with HR block and Sick Sinus syndrome. Pacemaker dependant PPM prior to discharge. Consult Dr. Waterman CAD PAD COPD Objective - Vital Signs/Intake and Output Vital Signs (last 24 hours): Temp Pulse Resp BP Pulse Ox 98.6 F 72 20 107/49 L 99 08/19/18 08:00 08/19/18 09:18 08/19/18 09:18 08/19/18 09:18 08/19/18 09:18 Intake and Output: 08/19/18 08/19/18 06:59 18:59 Intake Total 1045.2 261.3 Output Total 650 Balance 395.2 261.3 - Medications Medications: Current Medications Aspirin (Aspirin Chewable) 81 mg PO DAILY [facility] Last Admin: 08/19/18 09:09 Dose: 81 mg Clopidogrel Bisulfate (Plavix) 75 mg PO DAILY [facility] Last Admin: 08/19/18 09:09 Dose: 75 mg Enoxaparin Sodium (Lovenox) 30 mg SC DAILY [facility] Famotidine (Pepcid) 20 mg IVP DAILY [facility] Last Admin: 08/19/18 09:09 Dose: 20 mg Sodium Chloride (Sodium Chloride 0.9%) 1,000 mls @ 80 mls/hr IV .[id number] [facility] Last Admin: 08/19/18 04:16 Dose: 80 mls/hr Pneumococcal Polyvalent Vaccine (Pneumovax 23 Vaccine) 0.5 ml IM .ONCE ONE Stop: 08/21/18 13:46 Rosuvastatin Calcium (Crestor) 20 mg PO HS [facility] Last Admin: 08/18/18 21:37 Dose: 20 mg - Labs Labs: 08/19/18 06:46 08/19/18 06:46 PT 11.7 SECONDS (9.7-12.2) 08/17/18 11:17 INR 1.1 08/17/18 11:17 APTT 45 SECONDS (21-34) H 08/19/18 06:46
--- NOTE | 2018-08-19 13:12 | CP.PCM.CON ---
History of Present Illness - History of Present Illness History of Present Illness: Reason for consultation: patient with long history of smoking and having shortness of breath 68 year old female with Long history of smoking and hypertension HTN admitted to icu with chief complaint of chest pain/non-ST elevation NE and bradycardia. She states that at first the pain was an intermittent dull ache located on her right anterior chest wall. She was prompted by her PMD Dr. Ramos to come to the ED for evaluation of bradycardia on EKG. In the ED she was found to have severe bradycardia with HR in 40s along with elevated troponins, status post cardiac catheter with RCA lesion. patient complaining of dyspnea on exertion. PMH: HTN PSH: none SHx: Smokes approximately 10 cigarettes for past 50 years. Denies alcohol or illicit drug use. FHx: Father (lung cancer) Allergies: NKDA Review of Systems - Review of Systems All systems: reviewed and no additional remarkable complaints except (shortness of breath) Past Patient History - Past Medical History & Family History Past Medical History?: Yes - Past Social History Smoking Status: Heavy Smoker > 10 Cigarettes Daily - CARDIAC Hx Hypertension: Yes - PULMONARY Hx Respiratory Disorders: No - NEUROLOGICAL Hx Neurological Disorder: No - HEENT Hx HEENT Problems: No - RENAL Hx Chronic Kidney Disease: No - ENDOCRINE/METABOLIC Hx Endocrine Disorders: No - HEMATOLOGICAL/ONCOLOGICAL Hx Blood Disorders: No - INTEGUMENTARY Hx Dermatological Problems: No - MUSCULOSKELETAL/RHEUMATOLOGICAL Hx Musculoskeletal Disorders: No - GASTROINTESTINAL Hx Gastrointestinal Disorders: No - GENITOURINARY/GYNECOLOGICAL Hx Genitourinary Disorders: No - PSYCHIATRIC Hx Substance Use: No - SURGICAL HISTORY Hx Surgeries: No - ANESTHESIA Hx Anesthesia: No Meds Allergies/Adverse Reactions: Allergies Allergy/AdvReac Type Severity Reaction Status Date / Time No Known Allergies Allergy Verified 08/17/18 10:46 - Medications Medications: Current Medications Aspirin (Aspirin Chewable) 81 mg PO DAILY [facility] Last Admin: 08/19/18 09:09 Dose: 81 mg Clopidogrel Bisulfate (Plavix) 75 mg PO DAILY [facility] Last Admin: 08/19/18 09:09 Dose: 75 mg Enoxaparin Sodium (Lovenox) 30 mg SC DAILY [facility] Famotidine (Pepcid) 20 mg IVP DAILY [facility] Last Admin: 08/19/18 09:09 Dose: 20 mg Sodium Chloride (Sodium Chloride 0.9%) 1,000 mls @ 80 mls/hr IV .[id number] [facility] Last Admin: 08/19/18 04:16 Dose: 80 mls/hr Pneumococcal Polyvalent Vaccine (Pneumovax 23 Vaccine) 0.5 ml IM .ONCE ONE Stop: 08/21/18 13:46 Rosuvastatin Calcium (Crestor) 20 mg PO HS [facility] Last Admin: 08/18/18 21:37 Dose: 20 mg Results - Vital Signs Recent Vital Signs: Last Vital Signs Temp 98.6 F 08/19/18 08:00 Pulse 72 08/19/18 09:18 Resp 20 08/19/18 09:18 BP 107/49 L 08/19/18 09:18 Pulse Ox 99 08/19/18 09:18 - Labs Result Diagrams: 08/19/18 06:46 08/19/18 06:46 Labs: Laboratory Results - last 24 hr 08/18/18 08/18/18 08/18/18 11:29 14:25 17:35 WBC RBC Hgb Hct MCV MCH MCHC RDW Plt Count MPV Neut % (Auto) Lymph % (Auto) [place] % (Auto) Eos % (Auto) Baso % (Auto) Neut # (Auto) Lymph # (Auto) [place] # (Auto) Eos # (Auto) Baso # (Auto) APTT 57 H D Sodium Potassium Chloride Carbon Dioxide Anion Gap BUN Creatinine Est GFR ( Amer) Est GFR (Non-Af Amer) POC Glucose (mg/dL) 122 H 105 Random Glucose Calcium Phosphorus Magnesium Total Bilirubin AST ALT Alkaline Phosphatase Total Protein Albumin Globulin Albumin/Globulin Ratio Ur Random Creatinine U Random Total Protein 08/18/18 08/18/18 08/19/18 20:35 20:38 00:21 WBC RBC Hgb Hct MCV MCH MCHC RDW Plt Count MPV Neut % (Auto) Lymph % (Auto) [place] % (Auto) Eos % (Auto) Baso % (Auto) Neut # (Auto) Lymph # (Auto) [place] # (Auto) Eos # (Auto) Baso # (Auto) APTT 48 H D Sodium Potassium Chloride Carbon Dioxide Anion Gap BUN Creatinine Est GFR ( Amer) Est GFR (Non-Af Amer) POC Glucose (mg/dL) 98 Random Glucose Calcium Phosphorus Magnesium Total Bilirubin AST ALT Alkaline Phosphatase Total Protein Albumin Globulin Albumin/Globulin Ratio Ur Random Creatinine 131.4 U Random Total Protein 12.0 08/19/18 08/19/18 08/19/18 05:58 06:46 06:46 WBC 10.1 RBC 3.15 L Hgb 10.7 L Hct 30.7 L MCV 97.4 MCH 33.9 H MCHC 34.8 RDW 12.8 Plt Count 217 MPV 9.0 Neut % (Auto) 71.0 Lymph % (Auto) 16.[address] [place] % (Auto) 12.0 H Eos % (Auto) 0.1 Baso % (Auto) 0.3 Neut # (Auto) 7.2 H Lymph # (Auto) 1.7 [place] # (Auto) 1.2 H Eos # (Auto) 0.0 Baso # (Auto) 0.0 APTT Sodium 141 Potassium 3.4 L Chloride 113 H Carbon Dioxide 20 L Anion Gap 12 BUN 29 H Creatinine 0.8 Est GFR ( Amer) > 60 Est GFR (Non-Af Amer) > 60 POC Glucose (mg/dL) 90 Random Glucose 101 Calcium 8.0 L Phosphorus 2.6 Magnesium 2.2 Total Bilirubin 0.3 AST 31 ALT 48 Alkaline Phosphatase 115 Total Protein 5.6 L Albumin 2.9 L Globulin 2.7 Albumin/Globulin Ratio 1.0 Ur Random Creatinine U Random Total Protein 08/19/18 06:46 WBC RBC Hgb Hct MCV MCH MCHC RDW Plt Count MPV Neut % (Auto) Lymph % (Auto) [place] % (Auto) Eos % (Auto) Baso % (Auto) Neut # (Auto) Lymph # (Auto) [place] # (Auto) Eos # (Auto) Baso # (Auto) APTT 45 H Sodium Potassium Chloride Carbon Dioxide Anion Gap BUN Creatinine Est GFR ( Amer) Est GFR (Non-Af Amer) POC Glucose (mg/dL) Random Glucose Calcium Phosphorus Magnesium Total Bilirubin AST ALT Alkaline Phosphatase Total Protein Albumin Globulin Albumin/Globulin Ratio Ur Random Creatinine U Random Total Protein
[2018-08-20 06:38] LABS: BASO # 0.1 K/uL (0.0-0.2); BASO % 0.8 % (0.0-2.0); EOS # 0.1 K/uL (0.0-0.7); EOS % 1.1 % (0.0-4.0); HEMOGLOBIN 10.2 g/dL (11.0-16.0); LYMPH # 1.4 K/uL (1.0-4.3); LYMPH % 19.5 % (20.0-40.0); MEAN CELL VOLUME 97.7 fL (81.0-99.0); MEAN CORPUSCULAR HEMOGLOBIN 33.2 pg (27.0-31.0); MEAN PLATELET VOLUME 8.6 fL (7.2-11.7); MONO # 0.9 K/uL (0.0-0.8); MONO % 12.6 % (0.0-10.0); NEUT # 4.7 K/uL (1.8-7.0); RBC 3.08 Mil/uL (3.80-5.20); RED CELL DISTRIBUTION WIDTH 12.8 % (11.5-14.5); WHITE BLOOD COUNT 7.1 K/uL (4.8-10.8)
[2018-08-20 06:56] LABS: ALB/GLOB RATIO 1.1 (1.0-2.1); ALT/SGPT 42 U/L (9-52); AST/SGOT 24 U/L (14-36); BLOOD UREA NITROGEN 22 mg/dL (7-17); CALCIUM 8.4 mg/dl (8.6-10.4); GFR NON-AFRICAN AMERICAN > 60
--- NOTE | 2018-08-20 08:34 | CP.PCM.PN ---
Subjective - Date & Time of Evaluation Date of Evaluation: 08/20/18 Time of Evaluation: 08:15 - Subjective Subjective: Patient was seen and examined by me Yesterday she went to [facility] for PCI, however per cardiology this was not successful. The patient remains on Plavix, ASA, Statin at this time. The patient currently has TVP and there is now a consult for EP due to concerns for sick sinus syndrome She denied chest pain, denied shortness of breath, denied palpitations, denied abdominal pain, tolerating diet ok at this time Denied fevers. Objective - Vital Signs/Intake and Output Vital Signs (last 24 hours): Temp Pulse Resp BP Pulse Ox 98 F 72 22 122/62 98 08/20/18 04:00 08/20/18 07:00 08/20/18 07:00 08/20/18 06:20 08/20/18 07:00 Intake and Output: 08/20/18 08/20/18 06:59 18:59 Intake Total 300 0 Output Total 650 Balance -350 0 - Medications Medications: Current Medications Aspirin (Aspirin Chewable) 81 mg PO DAILY [facility] Last Admin: 08/19/18 09:09 Dose: 81 mg Clopidogrel Bisulfate (Plavix) 75 mg PO DAILY [facility] Last Admin: 08/19/18 09:09 Dose: 75 mg Enoxaparin Sodium (Lovenox) 30 mg SC DAILY [facility] Famotidine (Pepcid) 20 mg IVP DAILY [facility] Last Admin: 08/19/18 09:09 Dose: 20 mg Pneumococcal Polyvalent Vaccine (Pneumovax 23 Vaccine) 0.5 ml IM .ONCE ONE Stop: 08/21/18 13:46 Rosuvastatin Calcium (Crestor) 20 mg PO HS [facility] Last Admin: 08/19/18 21:23 Dose: 20 mg - Labs Labs: 08/20/18 06:33 08/20/18 06:33 PT 11.7 SECONDS (9.7-12.2) 08/17/18 11:17 INR 1.1 08/17/18 11:17 APTT 45 SECONDS (21-34) H 08/19/18 06:46 Assessment and Plan - Assessment and Plan (Free Text) Assessment: 1 NSTEMI- Acute CT 08/20: The PCI was not succesful, remains on medical managment at this moment. 08/19: Patient is pending PCI at [facility] today. Remains on heparin ggt, plavix, ASA, statin. 08/18: Patient reports no chest pain and no shortness of breath this morning when I saw. Possible PCI soon depending on renal function which appears to be better this morning. ASA, Plavix, statin, and remains on heparin ggt at this time. 08/17: First troponin 8.1, EKG showing severe bradycardia and Twvae inversions. started on heparin ggt, Plavix loading 300 and then 75 daily, ASA 325 already and 81 daily. Large dose of statin given Spoke with cardiology and per cardiololgy patient should be NPO except for medications. There will be additional troponins q3hrs starting at 4PM, repeat EKG A stat echo is pending at this time. Slow IVF at this moment. Repeat CXRAY tommow in case of fluid overload. 2 Bradycardia, maybe secondary to the CT patient has 08/20: Per cardiology likely has sick sinus syndrome and will need a pace maker. Currently has a TVP. 08/19: Has TVP, HR in the 70s, per my discussion with cardiology patient probably will need a pacemaker afterwards PCI 08/18: Currently has a TVP, HR is in the 70s. Light headedness resolved for the time being. 08/17: For now place temporary pacer pads/zol pads on patient. Repeat EKG For now not symptompatic however previously was. Have atropine nearby bedside 3 Acute vs chronic kidney disease 08/20: Today creatine remains under 1 08/19: Numbers better, possibly the WES was secondary to the decreased hemodynamics from the CT 08/18: Creatine decreased to 1.1, on slow IVF at the moment. 08/17: this may make giving contrast complicated as the creatine is 1.9 Started on slow IVF for now. Consult nephrology 3 Hx of smoking 08/17: smoking since age 13 or 14
[2018-08-20] MEDS ORDERED: Metoprolol 1 mg/ml Inj IVP ONE (09:15)
[2018-08-20] MEDS: Enoxaparin 30 mg Syringe SC SCH (09:57)
--- NOTE | 2018-08-20 10:29 | CP.PCM.PN ---
Subjective - Date & Time of Evaluation Date of Evaluation: 08/20/18 Time of Evaluation: 10:26 - Subjective Subjective: 68 yo lady w/ hx of htn presented to ER yesterday for evaluationof ongoing chest pain. Found to be hypotensive in 90s and bradycardic in 40s in ER, also troponin elevated to 8. Creatinine 1.9 mg/dl yesterday, down to 1.1 mg/dl today home meds incl HCTZ and valsartan Pt was started on a heparin gtt and iv saline overnight No known prior hx of kidney disease. no nsaid use Went for cardiac cath last night, no intervention done. Has transvenous pacemaker at this time. 08/20 Notes reviewed Comfortable in ccu Cath discussed with patient - unable to complete EP eval requested No complaints this am'No cp or palp No sob or cough No n/v/d Discussed resolving renal failure with patient 10 point ros otherwise negative PMH: HTN PSH: none SHx: Smokes approximately 10 cigarettes for past 50 years. Denies alcohol or illicit drug use. FHx: Father (lung cancer). no hx of kidney dz Allergies: NKDA Objective - Vital Signs/Intake and Output Vital Signs (last 24 hours): Temp Pulse Resp BP Pulse Ox 98 F 72 22 122/62 98 08/20/18 04:00 08/20/18 07:00 08/20/18 07:00 08/20/18 06:20 08/20/18 07:00 Intake and Output: 08/20/18 08/20/18 06:59 18:59 Intake Total 300 0 Output Total 650 Balance -350 0 - Medications Medications: Current Medications Aspirin (Aspirin Chewable) 81 mg PO DAILY [facility] Last Admin: 08/20/18 09:57 Dose: 81 mg Clopidogrel Bisulfate (Plavix) 75 mg PO DAILY [facility] Last Admin: 08/20/18 09:57 Dose: 75 mg Enoxaparin Sodium (Lovenox) 30 mg SC DAILY [facility] Last Admin: 08/20/18 09:57 Dose: 30 mg Famotidine (Pepcid) 20 mg IVP DAILY [facility] Last Admin: 08/20/18 10:02 Dose: 20 mg Metoprolol Tartrate (Lopressor) 25 mg PO BID [facility] Pneumococcal Polyvalent Vaccine (Pneumovax 23 Vaccine) 0.5 ml IM .ONCE ONE Stop: 08/21/18 13:46 Rosuvastatin Calcium (Crestor) 20 mg PO HS [facility] Last Admin: 08/19/18 21:23 Dose: 20 mg - Labs Labs: 08/20/18 06:33 08/20/18 06:33 PT 11.7 SECONDS (9.7-12.2) 08/17/18 11:17 INR 1.1 08/17/18 11:17 APTT 45 SECONDS (21-34) H 08/19/18 06:46 - Constitutional Appears: Well, Non-toxic - Head Exam Head Exam: ATRAUMATIC, NORMAL INSPECTION - Eye Exam Eye Exam: EOMI, Normal appearance - ENT Exam ENT Exam: Mucous Membranes Moist, Normal Oropharynx - Neck Exam Neck Exam: absent: Lymphadenopathy, Thyromegaly - Respiratory Exam Respiratory Exam: Clear to Ausculation Bilateral. absent: Rales, Rhonchi, Wheezes - Cardiovascular Exam Cardiovascular Exam: +S1, +S2. absent: JVD - GI/Abdominal Exam GI & Abdominal Exam: Soft, Normal Bowel Sounds - Neurological Exam Neurological Exam: Alert, Awake - Skin Skin Exam: Dry, Intact Assessment and Plan (1) Acute renal failure Status: Acute (2) Bradycardia Status: Acute (3) Hypertension Status: Acute (4) NSTEMI (non-ST elevated myocardial infarction) Status: Acute - Assessment and Plan (Free Text) Assessment: resolved renal failure electrolytes acceptable Bp stable Monitor in ccu Cardiology follow up as scheduled Continue current care Stable renal baer
--- NOTE | 2018-08-20 12:01 | CP.PCM.PN ---
Subjective - Date & Time of Evaluation Date of Evaluation: 08/20/18 Time of Evaluation: 11:58 - Subjective Subjective: Patient with long history of smoking (quit before comming to hospital). admitted to ICU for NSTEMI Objective - Vital Signs/Intake and Output Vital Signs (last 24 hours): Temp Pulse Resp BP Pulse Ox 98 F 72 22 119/50 L 98 08/20/18 04:00 08/20/18 07:00 08/20/18 07:00 08/20/18 10:34 08/20/18 07:00 Intake and Output: 08/20/18 08/20/18 06:59 18:59 Intake Total 300 0 Output Total 650 Balance -350 0 - Medications Medications: Current Medications Aspirin (Aspirin Chewable) 81 mg PO DAILY [facility] Last Admin: 08/20/18 09:57 Dose: 81 mg Clopidogrel Bisulfate (Plavix) 75 mg PO DAILY [facility] Last Admin: 08/20/18 09:57 Dose: 75 mg Enoxaparin Sodium (Lovenox) 30 mg SC DAILY [facility] Last Admin: 08/20/18 09:57 Dose: 30 mg Famotidine (Pepcid) 20 mg IVP DAILY [facility] Last Admin: 08/20/18 10:02 Dose: 20 mg Metoprolol Tartrate (Lopressor) 25 mg PO BID [facility] Last Admin: 08/20/18 10:34 Dose: 25 mg Pneumococcal Polyvalent Vaccine (Pneumovax 23 Vaccine) 0.5 ml IM .ONCE ONE Stop: 08/21/18 13:46 Rosuvastatin Calcium (Crestor) 20 mg PO HS [facility] Last Admin: 08/19/18 21:23 Dose: 20 mg - Labs Labs: 08/20/18 06:33 08/20/18 06:33 PT 11.7 SECONDS (9.7-12.2) 08/17/18 11:17 INR 1.1 08/17/18 11:17 APTT 45 SECONDS (21-34) H 08/19/18 06:46 - Constitutional Appears: Well, Non-toxic, No Acute Distress - Head Exam Head Exam: ATRAUMATIC, NORMAL INSPECTION, NORMOCEPHALIC - Eye Exam Eye Exam: EOMI, PERRL Pupil Exam: NORMAL ACCOMODATION - ENT Exam ENT Exam: Mucous Membranes Moist - Neck Exam Neck Exam: Full ROM - Respiratory Exam Respiratory Exam: Clear to Ausculation Bilateral, NORMAL BREATHING PATTERN - Cardiovascular Exam Cardiovascular Exam: REGULAR RHYTHM, +S1, +S2, +S4 - GI/Abdominal Exam GI & Abdominal Exam: Normal Bowel Sounds - Extremities Exam Extremities Exam: Full ROM - Neurological Exam Neurological Exam: Alert, Awake, CN II-XII Intact Assessment and Plan - Assessment and Plan (Free Text) Assessment: Long history of smoking dx with CAD/NSTEMI: contiue DAPT, lovenox and statin -Sick Sinus syndrom: HR ranges from 150s to 60s: will benefit from PPM -check TSH -contineu dvt ppx lovenox (full does) - saturating 94% on room air -remains asymptomatic on PPM Patient remains hemodynamically stable
[2018-08-21 07:19] LABS: BASO # 0.1 K/uL (0.0-0.2); BASO % 0.7 % (0.0-2.0); EOS # 0.3 K/uL (0.0-0.7); EOS % 4.2 % (0.0-4.0); LYMPH # 1.4 K/uL (1.0-4.3); LYMPH % 18.7 % (20.0-40.0); MEAN CELL VOLUME 95.8 fL (81.0-99.0); MEAN CORPUSCULAR HEMOGLOBIN 33.8 pg (27.0-31.0); MEAN CORPUSCULAR HGB CONC 35.3 g/dL (33.0-37.0); MEAN PLATELET VOLUME 8.1 fL (7.2-11.7); MONO # 0.8 K/uL (0.0-0.8); MONO % 11.1 % (0.0-10.0); NEUT # 4.8 K/uL (1.8-7.0); NEUT % 65.3 % (50.0-75.0); RBC 3.25 Mil/uL (3.80-5.20); RED CELL DISTRIBUTION WIDTH 12.4 % (11.5-14.5); WHITE BLOOD COUNT 7.4 K/uL (4.8-10.8)
--- NOTE | 2018-08-21 07:55 | CP.PCM.PN ---
Subjective - Date & Time of Evaluation Date of Evaluation: 08/21/18 Time of Evaluation: 07:45 - Subjective Subjective: There were no acute events overnight. From what I understand there were some adjustments with the rate of the pacer, other than this no other changes. Patient denied chest pain, denied palpitations, denied shortness of breath, denied abdominal pain, denied headache, denied vision changes, tolerated diet ok + constipation On the tele monitor there the HR rate varies greatly 50s to 130s at time. When I saw this morning she was in the 70s Objective - Vital Signs/Intake and Output Vital Signs (last 24 hours): Temp Pulse Resp BP Pulse Ox 98.5 F 61 17 123/60 95 08/20/18 20:00 08/20/18 20:00 08/20/18 20:00 08/20/18 20:00 08/20/18 20:00 Intake and Output: 08/21/18 08/21/18 06:59 18:59 Intake Total 380 Output Total 450 Balance -70 - Medications Medications: Current Medications Aspirin (Aspirin Chewable) 81 mg PO DAILY [facility] Last Admin: 08/20/18 09:57 Dose: 81 mg Clopidogrel Bisulfate (Plavix) 75 mg PO DAILY [facility] Last Admin: 08/20/18 09:57 Dose: 75 mg Enoxaparin Sodium (Lovenox) 30 mg SC DAILY [facility] Last Admin: 08/20/18 09:57 Dose: 30 mg Famotidine (Pepcid) 20 mg IVP DAILY [facility] Last Admin: 08/20/18 10:02 Dose: 20 mg Metoprolol Tartrate (Lopressor) 25 mg PO BID [facility] Last Admin: 08/20/18 18:34 Dose: 25 mg Pneumococcal Polyvalent Vaccine (Pneumovax 23 Vaccine) 0.5 ml IM .ONCE ONE Stop: 08/21/18 13:46 Rosuvastatin Calcium (Crestor) 20 mg PO HS [facility] Last Admin: 08/20/18 22:30 Dose: 20 mg - Labs Labs: 08/21/18 07:14 08/20/18 06:33 PT 11.7 SECONDS (9.7-12.2) 08/17/18 11:17 INR 1.1 08/17/18 11:17 APTT 45 SECONDS (21-34) H 08/19/18 06:46 - Constitutional Appears: No Acute Distress, Unkempt, Chronically Ill - Head Exam Head Exam: NORMAL INSPECTION, NORMOCEPHALIC - Eye Exam Eye Exam: EOMI, Normal appearance - ENT Exam ENT Exam: Mucous Membranes Moist - Respiratory Exam Respiratory Exam: Clear to Ausculation Bilateral, NORMAL BREATHING PATTERN - Cardiovascular Exam Cardiovascular Exam: REGULAR RHYTHM - GI/Abdominal Exam GI & Abdominal Exam: Soft, Normal Bowel Sounds. absent: Firm, Guarding, Rigid, Tenderness - Extremities Exam Extremities Exam: Full ROM - Neurological Exam Neurological Exam: Alert, Awake, CN II-XII Intact, Oriented x3 Neuro motor strength exam: Left Upper Extremity: 5, Right Upper Extremity: 5 - Psychiatric Exam Psychiatric exam: Normal Affect, Normal Mood - Skin Skin Exam: Pallor, Warm Assessment and Plan - Assessment and Plan (Free Text) Assessment: 1 Sick sinus, bradycardia 08/21: Some adjustments were made to the rate by cardiology. Continue monitoring on tele. At some point needs pacer. 08/20: Per cardiology likely has sick sinus syndrome and will need a pace maker. Currently has a TVP. 08/19: Has TVP, HR in the 70s, per my discussion with cardiology patient probably will need a pacemaker afterwards PCI 08/18: Currently has a TVP, HR is in the 70s. Light headedness resolved for the time being. 08/17: For now place temporary pacer pads/zol pads on patient. Repeat EKG For now not symptompatic however previously was. Have atropine nearby bedside 2 NSTEMI- Acute CT 08/20: The PCI was not successful, remains on medical management at this moment. 08/19: Patient is pending PCI at [facility] today. Remains on heparin ggt, plavix, ASA, statin. 08/18: Patient reports no chest pain and no shortness of breath this morning when I saw. Possible PCI soon depending on renal function which appears to be better this morning. ASA, Plavix, statin, and remains on heparin ggt at this time. 08/17: First troponin 8.1, EKG showing severe bradycardia and Twave inversions. started on heparin ggt, Plavix loading 300 and then 75 daily, ASA 325 already and 81 daily. Large dose of statin given Spoke with cardiology and per cardiology patient should be NPO except for med ications. There will be additional troponins q3hrs starting at 4PM, repeat EKG A stat echo is pending at this time. Slow IVF at this moment. Repeat CXRAY tomorrow in case of fluid overload. 3 Acute vs chronic kidney disease - now resolving 08/20: Today creatine remains under 1 08/19: Numbers better, possibly the WES was secondary to the decreased hemodynamics from the CT 08/18: Creatine decreased to 1.1, on slow IVF at the moment. 08/17: this may make giving contrast complicated as the creatine is 1.9 Started on slow IVF for now. Consult nephrology 3 Hx of smoking 08/17: smoking since age 13 or 14
[2018-08-21 08:01] LABS: BLOOD UREA NITROGEN 23 mg/dL (7-17); GFR NON-AFRICAN AMERICAN > 60
[2018-08-21 08:02] LABS: ALT/SGPT 36 U/L (9-52); AST/SGOT 20 U/L (14-36); CALCIUM 8.8 mg/dl (8.6-10.4)
[2018-08-21] MEDS: Enoxaparin 30 mg Syringe SC SCH (09:24)
--- NOTE | 2018-08-21 10:17 | CP.PCM.PN ---
Subjective - Date & Time of Evaluation Date of Evaluation: 08/21/18 Time of Evaluation: 10:11 - Subjective Subjective: PAtient awake, alert deneis any chest pain, denies any dizziness, tolerating oral medications Objective - Vital Signs/Intake and Output Vital Signs (last 24 hours): Temp Pulse Resp BP Pulse Ox 98.6 F 62 21 112/59 L 94 L 08/21/18 04:00 08/21/18 08:19 08/21/18 08:19 08/21/18 09:24 08/21/18 08:19 Intake and Output: 08/21/18 08/21/18 06:59 18:59 Intake Total 380 200 Output Total 450 Balance -70 200 - Medications Medications: Current Medications Aspirin (Aspirin Chewable) 81 mg PO DAILY [facility] Last Admin: 08/21/18 09:24 Dose: 81 mg Clopidogrel Bisulfate (Plavix) 75 mg PO DAILY [facility] Last Admin: 08/21/18 09:25 Dose: 75 mg Docusate Sodium (Colace) 100 mg PO TID [facility] Enoxaparin Sodium (Lovenox) 30 mg SC DAILY [facility] Last Admin: 08/21/18 09:24 Dose: 30 mg Famotidine (Pepcid) 20 mg IVP DAILY [facility] Last Admin: 08/21/18 09:25 Dose: 20 mg Lactulose (Enulose) 20 gm PO HS PRN PRN Reason: Constipation Metoprolol Tartrate (Lopressor) 25 mg PO BID [facility] Last Admin: 08/21/18 09:24 Dose: 25 mg Pneumococcal Polyvalent Vaccine (Pneumovax 23 Vaccine) 0.5 ml IM .ONCE ONE Stop: 08/21/18 13:46 Rosuvastatin Calcium (Crestor) 20 mg PO HS [facility] Last Admin: 08/20/18 22:30 Dose: 20 mg Sennosides (Senokot Tab) 8.6 mg PO DAILY [facility] - Labs Labs: 08/21/18 07:14 08/21/18 07:14 PT 11.7 SECONDS (9.7-12.2) 08/17/18 11:17 INR 1.1 08/17/18 11:17 APTT 45 SECONDS (21-34) H 08/19/18 06:46 - Constitutional Appears: Non-toxic, No Acute Distress - Head Exam Head Exam: NORMAL INSPECTION - Eye Exam Eye Exam: EOMI - ENT Exam ENT Exam: Mucous Membranes Moist - Neck Exam Neck Exam: Full ROM - Respiratory Exam Respiratory Exam: Clear to Ausculation Bilateral, NORMAL BREATHING PATTERN - Cardiovascular Exam Cardiovascular Exam: REGULAR RHYTHM, +S1, +S2 - GI/Abdominal Exam GI & Abdominal Exam: Normal Bowel Sounds - Extremities Exam Extremities Exam: Full ROM, Normal Inspection - Neurological Exam Neurological Exam: Alert, Awake, CN II-XII Intact, Oriented x3 Assessment and Plan - Assessment and Plan (Free Text) Assessment: Long history of smoking dx with CAD/NSTEMI: contiue DAPT, lovenox and statin -Sick Sinus syndrom: HR ranges from 150s to 60s: will benefit from PPM -check TSH -contineu dvt ppx lovenox (full does) - saturating 94% on room air -remains asymptomatic on PPM Patient remains hemodynamically stable
[2018-08-21] MEDS ORDERED: Pneumococcal 23-Valent Vaccine IM ONE (13:45)
--- NOTE | 2018-08-21 19:36 | CP.PCM.PN ---
Subjective - Date & Time of Evaluation Date of Evaluation: 08/20/18 Time of Evaluation: 16:20 - Subjective Subjective: Patient seen and evaluated Denies chest pain an dyspnea On TVP s/p Non STEMI HTN COPD Tobacco use EP eval in progress Objective - Vital Signs/Intake and Output Vital Signs (last 24 hours): Temp Pulse Resp BP Pulse Ox 99.1 F 60 20 115/40 L 92 L 08/21/18 16:00 08/21/18 17:17 08/21/18 17:17 08/21/18 17:40 08/21/18 17:17 Intake and Output: 08/21/18 08/22/18 18:59 06:59 Intake Total 800 Output Total 600 Balance 200 - Medications Medications: Current Medications Aspirin (Aspirin Chewable) 81 mg PO DAILY [facility] Last Admin: 08/21/18 09:24 Dose: 81 mg Clopidogrel Bisulfate (Plavix) 75 mg PO DAILY [facility] Last Admin: 08/21/18 09:25 Dose: 75 mg Docusate Sodium (Colace) 100 mg PO TID [facility] Last Admin: 08/21/18 17:41 Dose: 100 mg Enoxaparin Sodium (Lovenox) 30 mg SC DAILY [facility] Last Admin: 08/21/18 09:24 Dose: 30 mg Famotidine (Pepcid) 20 mg IVP DAILY [facility] Last Admin: 08/21/18 09:25 Dose: 20 mg Lactulose (Enulose) 20 gm PO HS PRN PRN Reason: Constipation Metoprolol Tartrate (Lopressor) 25 mg PO BID [facility] Last Admin: 08/21/18 17:40 Dose: Not Given Rosuvastatin Calcium (Crestor) 20 mg PO HS [facility] Last Admin: 08/20/18 22:30 Dose: 20 mg Sennosides (Senokot Tab) 8.6 mg PO DAILY [facility] Last Admin: 08/21/18 10:39 Dose: 8.6 mg - Labs Labs: 08/21/18 07:14 08/21/18 07:14 PT 11.7 SECONDS (9.7-12.2) 08/17/18 11:17 INR 1.1 08/17/18 11:17 APTT 45 SECONDS (21-34) H 08/19/18 06:46
--- NOTE | 2018-08-21 19:36 | CP.PCM.PN ---
Subjective - Date & Time of Evaluation Date of Evaluation: 08/21/18 Time of Evaluation: 19:36 - Subjective Subjective: Patient seen and evaluated Denies chest pain an dyspnea On TVP s/p Non STEMI HTN COPD Tobacco use EP eval in progress Objective - Vital Signs/Intake and Output Vital Signs (last 24 hours): Temp Pulse Resp BP Pulse Ox 99.1 F 60 20 115/40 L 92 L 08/21/18 16:00 08/21/18 17:17 08/21/18 17:17 08/21/18 17:40 08/21/18 17:17 Intake and Output: 08/21/18 08/22/18 18:59 06:59 Intake Total 800 Output Total 600 Balance 200 - Medications Medications: Current Medications Aspirin (Aspirin Chewable) 81 mg PO DAILY [facility] Last Admin: 08/21/18 09:24 Dose: 81 mg Clopidogrel Bisulfate (Plavix) 75 mg PO DAILY [facility] Last Admin: 08/21/18 09:25 Dose: 75 mg Docusate Sodium (Colace) 100 mg PO TID [facility] Last Admin: 08/21/18 17:41 Dose: 100 mg Enoxaparin Sodium (Lovenox) 30 mg SC DAILY [facility] Last Admin: 08/21/18 09:24 Dose: 30 mg Famotidine (Pepcid) 20 mg IVP DAILY [facility] Last Admin: 08/21/18 09:25 Dose: 20 mg Lactulose (Enulose) 20 gm PO HS PRN PRN Reason: Constipation Metoprolol Tartrate (Lopressor) 25 mg PO BID [facility] Last Admin: 08/21/18 17:40 Dose: Not Given Rosuvastatin Calcium (Crestor) 20 mg PO HS [facility] Last Admin: 08/20/18 22:30 Dose: 20 mg Sennosides (Senokot Tab) 8.6 mg PO DAILY [facility] Last Admin: 08/21/18 10:39 Dose: 8.6 mg - Labs Labs: 08/21/18 07:14 08/21/18 07:14 PT 11.7 SECONDS (9.7-12.2) 08/17/18 11:17 INR 1.1 08/17/18 11:17 APTT 45 SECONDS (21-34) H 08/19/18 06:46
[2018-08-22 05:43] LABS: BASO # 0.1 K/uL (0.0-0.2); BASO % 0.8 % (0.0-2.0); EOS # 0.3 K/uL (0.0-0.7); EOS % 4.9 % (0.0-4.0); HEMOGLOBIN 10.3 g/dL (11.0-16.0); LYMPH # 1.4 K/uL (1.0-4.3); LYMPH % 20.5 % (20.0-40.0); MEAN CELL VOLUME 96.3 fL (81.0-99.0); MEAN CORPUSCULAR HEMOGLOBIN 33.2 pg (27.0-31.0); MEAN CORPUSCULAR HGB CONC 34.5 g/dL (33.0-37.0); MEAN PLATELET VOLUME 8.2 fL (7.2-11.7); MONO # 0.9 K/uL (0.0-0.8); MONO % 12.8 % (0.0-10.0); NEUT # 4.3 K/uL (1.8-7.0); NRBC % 0.1 % (0.0-2.0); RBC 3.1 Mil/uL (3.80-5.20); RED CELL DISTRIBUTION WIDTH 12.6 % (11.5-14.5)
[2018-08-22 06:03] LABS: ALB/GLOB RATIO 1.1 (1.0-2.1); ALBUMIN 2.9 g/dL (3.5-5.0); ALT/SGPT 34 U/L (9-52); AST/SGOT 14 U/L (14-36); BLOOD UREA NITROGEN 21 mg/dL (7-17); CALCIUM 8.6 mg/dl (8.6-10.4); GFR NON-AFRICAN AMERICAN > 60
[2018-08-22] MEDS: Enoxaparin 30 mg Syringe SC SCH (09:35)
--- NOTE | 2018-08-22 09:40 | CP.PCM.PN ---
Subjective - Date & Time of Evaluation Date of Evaluation: 08/22/18 Time of Evaluation: 09:30 - Subjective Subjective: Seen and examined this morning. Patient was sitting comfortable,denies chest pain,no dizziness,she is worried about going home do her daily activities. She states that she is very active and doen's like to stay home. Objective - Vital Signs/Intake and Output Vital Signs (last 24 hours): Temp Pulse Resp BP Pulse Ox 98.4 F 102 H 12 109/64 95 08/22/18 08:00 08/22/18 09:00 08/22/18 09:00 08/22/18 09:35 08/22/18 09:00 Intake and Output: 08/22/18 08/22/18 06:59 18:59 Intake Total 0 240 Output Total 550 Balance -550 240 - Medications Medications: Current Medications Aspirin (Aspirin Chewable) 81 mg PO DAILY [facility] Last Admin: 08/22/18 09:35 Dose: 81 mg Clopidogrel Bisulfate (Plavix) 75 mg PO DAILY [facility] Last Admin: 08/22/18 09:35 Dose: 75 mg Docusate Sodium (Colace) 100 mg PO TID [facility] Last Admin: 08/22/18 09:35 Dose: 100 mg Enoxaparin Sodium (Lovenox) 30 mg SC DAILY [facility] Last Admin: 08/21/18 09:24 Dose: 30 mg Famotidine (Pepcid) 20 mg IVP DAILY [facility] Last Admin: 08/22/18 09:34 Dose: 20 mg Diltiazem HCl 125 mg/ Dextrose 125 mls @ 5 mls/hr IV .Q24H [facility]; Protocol Lactulose (Enulose) 20 gm PO HS PRN PRN Reason: Constipation Metoprolol Tartrate (Lopressor) 25 mg PO BID [facility] Last Admin: 08/22/18 09:35 Dose: 25 mg Rosuvastatin Calcium (Crestor) 20 mg PO HS [facility] Last Admin: 08/21/18 22:45 Dose: 20 mg Sennosides (Senokot Tab) 8.6 mg PO DAILY [facility] Last Admin: 08/22/18 09:35 Dose: 8.6 mg - Labs Labs: 08/22/18 05:35 08/22/18 05:36 PT 11.7 SECONDS (9.7-12.2) 08/17/18 11:17 INR 1.1 08/17/18 11:17 APTT 45 SECONDS (21-34) H 08/19/18 06:46 - Constitutional Appears: No Acute Distress - Head Exam Head Exam: NORMAL INSPECTION - Eye Exam Eye Exam: Normal appearance - ENT Exam ENT Exam: Mucous Membranes Moist - Neck Exam Neck Exam: Normal Inspection - Respiratory Exam Respiratory Exam: Clear to Ausculation Bilateral, NORMAL BREATHING PATTERN - Cardiovascular Exam Cardiovascular Exam: Bradycardia, Tachycardia - GI/Abdominal Exam GI & Abdominal Exam: Soft, Normal Bowel Sounds. absent: Tenderness - Extremities Exam Extremities Exam: Full ROM - Back Exam Back Exam: NORMAL INSPECTION - Neurological Exam Neurological Exam: Awake, Oriented x3 - Psychiatric Exam Psychiatric exam: Normal Affect, Normal Mood - Skin Skin Exam: Dry, Intact, Normal Color Assessment and Plan - Assessment and Plan (Free Text) Plan: 1 Sick sinus,Tachybrady syndrome Patient had TVP on 08/19. Currently she has TVP On 08/21 Some adjustments were made to the rate by cardiology Patient probably need pace maker as per staffing account manager. we will follow with DR Yip and DR Waterman patient is asymptomatic today 2 NSTEMI- Acute NH We will continue ASA, Plavix, statin.now on heparin drip for afib s/p PCI on 08/19 The PCI was not successful, remains on medical management at this moment. Possible PCI soon,we will follow cardio and nephrology (On admission patient had first troponin 8.1, EKG showing severe bradycardia and T wave inversions. started on heparin ggt, Plavix loading 300 and then 75 daily, ASA 325 already and 81 daily. ) 3.Atrial fibrillation/newonset started on heparin this afternoon now paced regular 4 Acute vs chronic kidney disease -Resolved nephrology follow up appreciated 3 Hx of smoking 08/17: smoking since age 13 or 14 dvt prophy is on heparin GI on pepcid
[2018-08-22] MEDS ORDERED: Potassium Chloride 20 mEq ER Tab PO ONE (10:15)
[2018-08-22] MEDS ORDERED: Heparin25000 units/250ml 1/2NS 25,000 UNITS/250 ML BAG IV PRN ×2 (10:16→18:39)
--- NOTE | 2018-08-22 11:28 | CP.PCM.PN ---
Subjective - Date & Time of Evaluation Date of Evaluation: 08/22/18 Time of Evaluation: 11:26 - Subjective Subjective: appears well No new CPs WES has resolved Cardiac plans being considered Objective - Vital Signs/Intake and Output Vital Signs (last 24 hours): Temp Pulse Resp BP Pulse Ox 98.4 F 52 L 20 108/71 97 08/22/18 08:00 08/22/18 11:00 08/22/18 11:00 08/22/18 10:17 08/22/18 11:00 Intake and Output: 08/22/18 08/22/18 06:59 18:59 Intake Total 0 725 Output Total 550 Balance -550 725 - Medications Medications: Current Medications Aspirin (Aspirin Chewable) 81 mg PO DAILY [facility] Last Admin: 08/22/18 09:35 Dose: 81 mg Clopidogrel Bisulfate (Plavix) 75 mg PO DAILY [facility] Last Admin: 08/22/18 09:35 Dose: 75 mg Docusate Sodium (Colace) 100 mg PO TID [facility] Last Admin: 08/22/18 09:35 Dose: 100 mg Enoxaparin Sodium (Lovenox) 30 mg SC DAILY [facility] Last Admin: 08/21/18 09:24 Dose: 30 mg Famotidine (Pepcid) 20 mg IVP DAILY [facility] Last Admin: 08/22/18 09:34 Dose: 20 mg Diltiazem HCl 125 mg/ Dextrose 125 mls @ 5 mls/hr IV .Q24H [facility]; Protocol Last Admin: 08/22/18 10:35 Dose: 5 mg/hr, 5 mls/hr Heparin Sodium/Sodium Chloride (Heparin 75745 Units/250ml 1/2 Normal Saline) 25,000 units in 250 mls @ 4.4 mls/hr IV .Q24H [facility]; Protocol PRN Reason: PROTOCOL Last Admin: 08/22/18 11:14 Dose: 8 units/kg/hr, 4.4 mls/hr Lactulose (Enulose) 20 gm PO HS PRN PRN Reason: Constipation Metoprolol Tartrate (Lopressor) 25 mg PO BID [facility] Last Admin: 08/22/18 09:35 Dose: 25 mg Rosuvastatin Calcium (Crestor) 20 mg PO HS [facility] Last Admin: 08/21/18 22:45 Dose: 20 mg Sennosides (Senokot Tab) 8.6 mg PO DAILY [facility] Last Admin: 08/22/18 09:35 Dose: 8.6 mg - Labs Labs: 08/22/18 05:35 08/22/18 05:36 PT 11.7 SECONDS (9.7-12.2) 08/17/18 11:17 INR 1.1 08/17/18 11:17 APTT 45 SECONDS (21-34) H 08/19/18 06:46 - Constitutional Appears: No Acute Distress, Chronically Ill - Head Exam Head Exam: ATRAUMATIC, NORMAL INSPECTION - Eye Exam Eye Exam: EOMI, Normal appearance - Neck Exam Neck Exam: Normal Inspection. absent: Tenderness - Respiratory Exam Respiratory Exam: Clear to Ausculation Bilateral, NORMAL BREATHING PATTERN - Cardiovascular Exam Cardiovascular Exam: REGULAR RHYTHM, +S1 - GI/Abdominal Exam GI & Abdominal Exam: Soft. absent: Tenderness - Extremities Exam Extremities Exam: Normal Inspection. absent: Tenderness - Neurological Exam Neurological Exam: Awake, CN II-XII Intact - Skin Skin Exam: Dry, Warm Assessment and Plan (1) Acute renal failure Status: Acute (2) Bradycardia Status: Acute (3) Hypertension Status: Acute (4) NSTEMI (non-ST elevated myocardial infarction) Status: Acute - Assessment and Plan (Free Text) Plan: Recheck lytes Cardiac plans
--- NOTE | 2018-08-22 13:15 | RAD ---
Date of service: 08/22/2018 HISTORY: check placement of pacer COMPARISON: 08/18/2018. FINDINGS: LUNGS: Progressive right lower lobe infiltrate. PLEURA: Associated small pleural effusion. CARDIOVASCULAR: Unipolar pacemaker lead identified in the expected location of the right ventricle. Pacer device inserted via right internal jugular approach. Atherosclerotic calcifications identified primarily aortic arch. OSSEOUS STRUCTURES: No significant abnormalities. VISUALIZED UPPER ABDOMEN: Normal. OTHER FINDINGS: None. IMPRESSION: Unipolar pacemaker device inserted via right internal jugular approach confirm. The tip is in the expected location the right ventricle. No pneumothorax identified. Progressive right lower lobe infiltrate and new right pleural effusion.
--- NOTE | 2018-08-22 14:16 | CP.CCUPN ---
CCU Subjective - Physician Review Events Since Last Encounter (Free Text): 08/22/18 14:13 No acute events overnight. Patient has no new complaints. Subjective (Free Text): 08/22/18 14:17 PGY1 Critical Care Progress Note for Dr. Schroeder S Patient was seen at bedside this morning. Per patient, she no longer has right- sided shoulder pain. Patient is tolerating food and is able to have BM and void. Of note, patient states that she's been feeling anxious about the decision regarding placement of permanent pacemaker. Patient also denies chest pain, shortness of breath, headache, fever, chills, nausea, and/or vomiting. Critical Care Time Spent (in minutes): 35 CCU Objective - Vital Signs / Intake & Output Vital Signs (Last 4 hours): Vital Signs Temp Pulse Resp BP Pulse Ox 08/22/18 13:17 60 22 96/43 L 98 08/22/18 13:00 58 L 19 99 08/22/18 12:18 57 L 17 125/42 L 99 08/22/18 12:00 97.8 F 57 L 14 98 08/22/18 11:17 54 L 16 109/55 L 99 08/22/18 11:05 59 L 16 97/41 L 97 08/22/18 11:00 52 L 20 97 08/22/18 10:17 146 H 19 108/71 97 Intake and Output (Last 8hrs): Intake & Output 08/21/18 08/22/18 08/22/18 22:59 06:59 14:59 Intake Total 200 0 979.2 Output Total 500 250 350 Balance -300 -250 629.2 Weight 121 lb 4.068 oz Intake: IV 3 Intake, IV Amount 0 0 16.2 Left Hand 0 Left Hand Y-Port 0 0 0 Right Wrist 16.2 Oral 200 960 Output: Urine 500 250 350 Urine, Voided 500 250 350 Other: # Voids Urine, Voided 1 1 1 - Physical Exam Head: Positive for: Atraumatic, Normocephalic Pupils: Positive for: PERRL Extroacular Muscles: Positive for: EOMI Conjunctiva: Positive for: Normal Mouth: Positive for: Moist Mucous Membranes Neck: Positive for: Normal Range of Motion Respiratory/Chest: Positive for: Clear to Auscultation, Good Air Exchange. Negative for: Respiratory Distress Cardiovascular: Positive for: Regular Rate and Rhythm, Normal S1, S2 Abdomen: Positive for: Normal Bowel Sounds. Negative for: Tenderness, Distention, Peritoneal Signs Upper Extremity: Positive for: Normal Inspection, Normal ROM. Negative for: Cyanosis, Edema Lower Extremity: Positive for: Normal Inspection, NORMAL PULSES. Negative for: Edema, CALF TENDERNESS Neurological: Positive for: GCS=15, CN II-XII Intact, Speech Normal Skin: Positive for: Warm, Dry, Normal Color. Negative for: Rashes Psychiatric: Positive for: Alert, Oriented x 3, Normal Insight, Normal Concentration - Medications Active Medications: Active Medications Generic Name Dose Route Start Last Admin Trade Name Freq PRN Reason Stop Dose Admin Aspirin 81 mg 08/18/18 10:00 08/22/18 09:35 Aspirin Chewable PO 81 mg DAILY [facility] Administration Clopidogrel Bisulfate 75 mg 08/18/18 10:00 08/22/18 09:35 Plavix PO 75 mg DAILY [facility] Administration Docusate Sodium 100 mg 08/21/18 10:00 08/22/18 13:21 Colace PO 100 mg TID [facility] Administration Enoxaparin Sodium 30 mg 08/20/18 10:00 08/22/18 09:35 Lovenox SC 30 mg DAILY [facility] Administration Famotidine 20 mg 08/18/18 10:00 08/22/18 09:34 Pepcid IVP 20 mg DAILY [facility] Administration Diltiazem HCl 125 mg/ Dextrose 125 mls @ 5 mls/hr 08/22/18 09:45 08/22/18 11:10 IV 0 mg/hr .Q24H [facility] 0 mls/hr Titration Protocol 5 MG/HR Heparin Sodium/Sodium Chloride 25,000 units in 250 mls @ 4.4 mls/hr 08/22/18 10:16 08/22/18 11:14 Heparin 31472 Units/250ml 1/2 Normal Saline IV 8 units/kg/hr .Q24H PRN 4.4 mls/hr PROTOCOL Administration Protocol 8 UNITS/KG/HR Lactulose 20 gm 08/21/18 09:24 Enulose PO HS PRN Constipation Metoprolol Tartrate 25 mg 08/20/18 10:00 08/22/18 09:35 Lopressor PO 25 mg BID [facility] Administration Rosuvastatin Calcium 20 mg 08/17/18 22:00 08/21/18 22:45 Crestor PO 20 mg HS [facility] Administration Sennosides 8.6 mg 08/21/18 10:00 08/22/18 09:35 Senokot Tab PO 8.6 mg DAILY [facility] Administration - Patient Studies Lab Studies: Lab Studies 08/22/18 08/22/18 Range/Units 05:36 05:35 WBC 7.0 (4.8-10.8) K/uL RBC 3.10 L (3.80-5.20) Mil/uL Hgb 10.3 L (11.0-16.0) g/dL Hct 29.8 L (34.0-47.0) % MCV 96.3 (81.0-99.0) fL MCH 33.2 H (27.0-31.0) pg MCHC 34.5 (33.0-37.0) g/dL RDW 12.6 (11.5-14.5) % Plt Count 255 (130-400) K/uL MPV 8.2 (7.2-11.7) fL Neut % (Auto) 61.0 (50.0-75.0) % Lymph % (Auto) 20.5 (20.0-40.0) % [place] % (Auto) 12.8 H (0.0-10.0) % Eos % (Auto) 4.9 H (0.0-4.0) % Baso % (Auto) 0.8 (0.0-2.0) % Neut # (Auto) 4.3 (1.8-7.0) K/uL Lymph # (Auto) 1.4 (1.0-4.3) K/uL [place] # (Auto) 0.9 H (0.0-0.8) K/uL Eos # (Auto) 0.3 (0.0-0.7) K/uL Baso # (Auto) 0.1 (0.0-0.2) K/uL Sodium 142 (132-148) mmol/L Potassium 3.8 (3.6-5.2) mmol/L Chloride 110 H (98-107) mmol/L Carbon Dioxide 25 (22-30) mmol/L Anion Gap 11 (10-20) BUN 21 H (7-17) mg/dL Creatinine 0.8 (0.7-1.2) mg/dL Est GFR ( Amer) > 60 Est GFR (Non-Af Amer) > 60 Random Glucose 95 (65-105) mg/dL Calcium 8.6 (8.6-10.4) mg/dl Phosphorus 4.2 (2.5-4.5) mg/dL Magnesium 2.0 (1.6-2.3) mg/dL Total Bilirubin 0.4 (0.2-1.3) mg/dL AST 14 D (14-36) U/L ALT 34 (9-52) U/L Alkaline Phosphatase 101 (38-126) U/L Total Protein 5.7 L (6.3-8.3) g/dL Albumin 2.9 L (3.5-5.0) g/dL Globulin 2.8 (2.2-3.9) gm/dL Albumin/Globulin Ratio 1.1 (1.0-2.1) Laboratory Results - last 24 hr 08/22/18 08/22/18 05:35 05:36 WBC 7.0 RBC 3.10 L Hgb 10.3 L Hct 29.8 L MCV 96.3 MCH 33.2 H MCHC 34.5 RDW 12.6 Plt Count 255 MPV 8.2 Neut % (Auto) 61.0 Lymph % (Auto) 20.5 [place] % (Auto) 12.8 H Eos % (Auto) 4.9 H Baso % (Auto) 0.8 Neut # (Auto) 4.3 Lymph # (Auto) 1.4 [place] # (Auto) 0.9 H Eos # (Auto) 0.3 Baso # (Auto) 0.1 Sodium 142 Potassium 3.8 Chloride 110 H Carbon Dioxide 25 Anion Gap 11 BUN 21 H Creatinine 0.8 Est GFR ( Amer) > 60 Est GFR (Non-Af Amer) > 60 Random Glucose 95 Calcium 8.6 Phosphorus 4.2 Magnesium 2.0 Total Bilirubin 0.4 AST 14 D ALT 34 Alkaline Phosphatase 101 Total Protein 5.7 L Albumin 2.9 L Globulin 2.8 Albumin/Globulin Ratio 1.1 Fingerstick Blood Sugar Results: 90 Review of Systems - Review of Systems All systems: reviewed and no additional remarkable complaints except - EENT Eyes: As Per HPI - Cardiovascular Cardiovascular: As Per HPI - Respiratory Respiratory: As Per HPI - Gastrointestinal Gastrointestinal: As Per HPI - Genitourinary Genitourinary: As Per HPI - Musculoskeletal Musculoskeletal: As Par HPI - Integumentary Integumentary: As Per HPI - Neurological Neurological: As Per HPI - Psychiatric Psychiatric: As Per HPI - Endocrine Endocrine: As Per HPI Critical Care Progress Note - Nutrition Nutrition: Nutrition Category Date Time Status Heart Healthy Diet [DIET] Diets 08/19/18 Lunch Active Assessment/Plan - Assessment and Plan (Free Text) Assessment: Patient is a 68 year old female with past medical history of HTN presenting with chief complaint of chest pain that began approximately 4 days ago, was found to have severe bradycardia with HR in 40s and elevated troponins, now admitted to ICU for workup and management of NSTEMI. Plan: CV: - Currently hemodynamically stable, no pressors required at this time - Cardiology Dr. Degroot consulted. Appreciate recs. - Continue aspirin 81 mg PO daily, plavix 75 mg PO daily, rosuvastatin 20 mg PO HS - ECHO shows LVEF 65-70%, discontinuity of interatrial septum suggestive of ASD - s/p cardiac cath, proximal RCA 100% occluded, patent LAD, left circumflex patent - Heparin 25,000 in 250ml IV 8 units/kg/hr Pulm: - CXR from this AM shows no active disease - Nasal cannula - Maintain SpO2>92% Neuro: - AAOx3 - Maintain normothermia GI: - NPO - Pepcid 20 mg IV daily Renal: - ARF resolved with IVF - Nephrology consulted. Recs appreciated. - Monitor I and O - NS 80 ccs/hr Endo: - Maintain euglycemia Heme: - Monitor H/H ID: - Afebrile, leukocytosis resolved - No active issues PPX: Pepcid 20 mg IV daily, SCDs Patient seen and case discussed with Chidi Ruiz PGY1
--- NOTE | 2018-08-22 21:30 | CP.PCM.PN ---
Subjective - Date & Time of Evaluation Date of Evaluation: 08/22/18 Time of Evaluation: 17:15 - Subjective Subjective: Patient was seen and evaluated. Denies chest pain and dyspnea Critical Care Time Spent (in minutes): 35 CCU Objective - Physical Exam Head: Positive for: Atraumatic, Normocephalic Pupils: Positive for: PERRL Extroacular Muscles: Positive for: EOMI Conjunctiva: Positive for: Normal Mouth: Positive for: Moist Mucous Membranes Neck: Positive for: Normal Range of Motion Respiratory/Chest: Positive for: Clear to Auscultation, Good Air Exchange. Negative for: Respiratory Distress Cardiovascular: Positive for: Regular Rate and Rhythm, Normal S1, S2 Abdomen: Positive for: Normal Bowel Sounds. Negative for: Tenderness, Distention, Peritoneal Signs Upper Extremity: Positive for: Normal Inspection, Normal ROM. Negative for: Cyanosis, Edema Lower Extremity: Positive for: Normal Inspection, NORMAL PULSES. Negative for: Edema, CALF TENDERNESS Neurological: Positive for: GCS=15, CN II-XII Intact, Speech Normal Skin: Positive for: Warm, Dry, Normal Color. Negative for: Rashes Psychiatric: Positive for: Alert, Oriented x 3, Normal Insight, Normal Concentration Review of Systems - Review of Systems All systems: reviewed and no additional remarkable complaints except - EENT Eyes: As Per HPI - Cardiovascular Cardiovascular: As Per HPI - Respiratory Respiratory: As Per HPI - Gastrointestinal Gastrointestinal: As Per HPI - Genitourinary Genitourinary: As Per HPI - Musculoskeletal Musculoskeletal: As Par HPI - Integumentary Integumentary: As Per HPI - Neurological Neurological: As Per HPI - Psychiatric Psychiatric: As Per HPI - Endocrine Endocrine: As Per HPI Critical Care Progress Note - Nutrition Nutrition: Nutrition Category Date Time Status Heart Healthy Diet [DIET] Diets 08/19/18 Lunch Active Assessment/Plan - Assessment and Plan (Free Text) Assessment: Patient is a 68 year old female with past medical history of HTN presenting with chief complaint of chest pain that began approximately 4 days ago, was found to have severe bradycardia with HR in 40s and elevated troponins, now admitted to ICU for workup and management of NSTEMI. Plan: CV: - Currently hemodynamically stable, no pressors required at this time - Continue aspirin 81 mg PO daily, plavix 75 mg PO daily, rosuvastatin 20 mg PO HS - ECHO shows LVEF 65-70%, discontinuity of interatrial septum suggestive of ASD - s/p cardiac cath, proximal RCA 100% occluded, patent LAD, left circumflex patent - Heparin 25,000 in 250ml IV 8 units/kg/hr Pulm: - CXR from this AM shows no active disease - Nasal cannula - Maintain SpO2>92% Neuro: - AAOx3 - Maintain normothermia GI: - NPO - Pepcid 20 mg IV daily Renal: - ARF resolved with IVF - Nephrology consulted. Recs appreciated. - Monitor I and O - NS 80 ccs/hr Endo: - Maintain euglycemia Heme: - Monitor H/H ID: - Afebrile, leukocytosis resolved - No active issues PPX: Pepcid 20 mg IV daily, SCDs Patient with new onset A Fib Continue IV Heparin Objective - Vital Signs/Intake and Output Vital Signs (last 24 hours): Temp Pulse Resp BP Pulse Ox 98.2 F 59 L 17 90/41 L 100 08/22/18 16:00 08/22/18 20:17 08/22/18 20:17 08/22/18 20:17 08/22/18 20:17 Intake and Output: 08/22/18 08/23/18 18:59 06:59 Intake Total 1241.2 39.5 Output Total 350 Balance 891.2 39.5 - Medications Medications: Current Medications Aspirin (Aspirin Chewable) 81 mg PO DAILY [facility] Last Admin: 08/22/18 09:35 Dose: 81 mg Clopidogrel Bisulfate (Plavix) 75 mg PO DAILY [facility] Last Admin: 08/22/18 09:35 Dose: 75 mg Diphenhydramine HCl (Benadryl) 25 mg PO Q6 PRN PRN Reason: Allergy symptoms Docusate Sodium (Colace) 100 mg PO TID [facility] Last Admin: 08/22/18 17:55 Dose: 100 mg Famotidine (Pepcid) 20 mg PO DAILY [facility] Diltiazem HCl 125 mg/ Dextrose 125 mls @ 5 mls/hr IV .Q24H [facility]; Protocol Last Titration: 08/22/18 11:10 Dose: 0 mg/hr, 0 mls/hr Heparin Sodium/Sodium Chloride (Heparin 20148 Units/250ml 1/2 Normal Saline) 25,000 units in 250 mls @ 4.4 mls/hr IV .Q24H PRN; Protocol PRN Reason: PROTOCOL Last Titration: 08/22/18 19:11 Dose: 10 units/kg/hr, 5.5 mls/hr Lactulose (Enulose) 20 gm PO HS PRN PRN Reason: Constipation Metoprolol Tartrate (Lopressor) 25 mg PO BID [facility] Last Admin: 08/22/18 18:02 Dose: 25 mg Rosuvastatin Calcium (Crestor) 20 mg PO HS [facility] Last Admin: 08/21/18 22:45 Dose: 20 mg Sennosides (Senokot Tab) 8.6 mg PO DAILY [facility] Last Admin: 08/22/18 09:35 Dose: 8.6 mg - Labs Labs: 08/22/18 05:35 08/22/18 05:36 PT 11.7 SECONDS (9.7-12.2) 08/17/18 11:17 INR 1.1 08/17/18 11:17 APTT 37 SECONDS (21-34) H 08/22/18 17:55
[2018-08-23] MEDS ORDERED: Heparin25000 units/250ml 1/2NS 25,000 UNITS/250 ML BAG IV PRN (02:15)
[2018-08-23 06:58] LABS: BASO % 0.1 % (0.0-2.0); EOS # 0.3 K/uL (0.0-0.7); EOS % 5.1 % (0.0-4.0); HEMOGLOBIN 10.5 g/dL (11.0-16.0); LYMPH # 1.4 K/uL (1.0-4.3); MEAN CELL VOLUME 96.7 fL (81.0-99.0); MEAN CORPUSCULAR HEMOGLOBIN 33.6 pg (27.0-31.0); MEAN CORPUSCULAR HGB CONC 34.8 g/dL (33.0-37.0); MEAN PLATELET VOLUME 8.5 fL (7.2-11.7); MONO # 0.8 K/uL (0.0-0.8); MONO % 11.5 % (0.0-10.0); NEUT # 4.1 K/uL (1.8-7.0); NEUT % 62.3 % (50.0-75.0); NRBC % 0.1 % (0.0-2.0); RBC 3.12 Mil/uL (3.80-5.20); RED CELL DISTRIBUTION WIDTH 12.4 % (11.5-14.5); WHITE BLOOD COUNT 6.6 K/uL (4.8-10.8)
[2018-08-23 07:14] LABS: ALB/GLOB RATIO 1.1 (1.0-2.1); ALBUMIN 2.8 g/dL (3.5-5.0); ALT/SGPT 26 U/L (9-52); AST/SGOT 17 U/L (14-36); BLOOD UREA NITROGEN 22 mg/dL (7-17); CALCIUM 8.5 mg/dl (8.6-10.4); GFR NON-AFRICAN AMERICAN 55
--- NOTE | 2018-08-23 09:19 | CP.CCUPN ---
<Sam Paige - Last Filed: 08/23/18 18:01> CCU Subjective - Physician Review Events Since Last Encounter (Free Text): 08/23/18 18:01 No Acute Events Overnight Subjective (Free Text): 08/23/18 09:19 PGY1 Critical Care Progress Note for Dr. Last Patient seen at bedside this morning. No acute complaints. Patient tolerating PO without issue. Patient denies chest pain, shortness of breath, headache, dizziness, pain, and/or palpitations. Patient going to [facility] for EP study today. Patient is hemodynamically stable and sinus rhythm rate 60bpm. Critical Care Time Spent (in minutes): 35 CCU Objective - Vital Signs / Intake & Output Vital Signs (Last 4 hours): Vital Signs Temp Pulse Resp BP Pulse Ox 08/23/18 08:17 63 15 124/32 L 92 L 08/23/18 08:00 98.7 F 67 15 98 08/23/18 07:17 63 14 114/44 L 98 08/23/18 06:16 64 15 123/45 L 96 08/23/18 06:00 59 L 14 98 Intake and Output (Last 8hrs): Intake & Output 08/22/18 08/23/18 08/23/18 22:59 06:59 14:59 Intake Total 553.6 248.4 253.2 Output Total 550 Balance 553.6 248.4 -296.8 Weight 122 lb 7.342 oz Intake: IV 34 Intake, IV Amount 39.6 48.4 13.2 Right Wrist 39.6 48.4 13.2 Oral 480 200 240 Output: Urine 550 Urine, Voided 550 Other: # Voids Urine, Voided 1 - Physical Exam Head: Positive for: Atraumatic, Normocephalic Pupils: Positive for: PERRL Extroacular Muscles: Positive for: EOMI Conjunctiva: Positive for: Normal Mouth: Positive for: Moist Mucous Membranes Neck: Positive for: Normal Range of Motion Respiratory/Chest: Positive for: Clear to Auscultation, Good Air Exchange. Negative for: Respiratory Distress Cardiovascular: Positive for: Regular Rate and Rhythm, Normal S1, S2 Abdomen: Positive for: Normal Bowel Sounds. Negative for: Tenderness, Distention, Peritoneal Signs Upper Extremity: Positive for: Normal Inspection, Normal ROM. Negative for: Cyanosis, Edema Lower Extremity: Positive for: Normal Inspection, NORMAL PULSES. Negative for: Edema, CALF TENDERNESS Neurological: Positive for: GCS=15, CN II-XII Intact, Speech Normal Skin: Positive for: Warm, Dry, Normal Color. Negative for: Rashes Psychiatric: Positive for: Alert, Oriented x 3, Normal Insight, Normal Concentration - Medications Active Medications: Active Medications Generic Name Dose Route Start Last Admin Trade Name Freq PRN Reason Stop Dose Admin Aspirin 81 mg 08/18/18 10:00 08/22/18 09:35 Aspirin Chewable PO 81 mg DAILY SARAH Administration Clopidogrel Bisulfate 75 mg 08/18/18 10:00 08/22/18 09:35 Plavix PO 75 mg DAILY SARAH Administration Diphenhydramine HCl 25 mg 08/22/18 17:16 08/23/18 04:05 Benadryl PO 25 mg Q6 PRN Administration Allergy symptoms Docusate Sodium 100 mg 08/21/18 10:00 08/22/18 17:55 Colace PO 100 mg TID SARAH Administration Famotidine 20 mg 08/23/18 10:00 Pepcid PO DAILY SARAH Diltiazem HCl 125 mg/ Dextrose 125 mls @ 5 mls/hr 08/22/18 09:45 08/22/18 11:10 IV 0 mg/hr .Q24H SARAH 0 mls/hr Titration Protocol 5 MG/HR Heparin Sodium/Sodium Chloride 25,000 units in 250 mls @ 5.5 mls/hr 08/23/18 02:15 08/23/18 02:15 Heparin 35819 Units/250ml 1/2 Normal Saline IV 12 units/kg/hr .Q24H PRN 6.6 mls/hr PROTOCOL Administration Protocol 10 UNITS/KG/HR Lactulose 20 gm 08/21/18 09:24 Enulose PO HS PRN Constipation Metoprolol Tartrate 25 mg 08/20/18 10:00 08/22/18 18:02 Lopressor PO 25 mg BID SARAH Administration Rosuvastatin Calcium 20 mg 08/17/18 22:00 08/22/18 21:23 Crestor PO 20 mg HS SARAH Administration Sennosides 8.6 mg 08/21/18 10:00 08/22/18 09:35 Senokot Tab PO 8.6 mg DAILY SARAH Administration - Patient Studies Lab Studies: Lab Studies 08/23/18 08/23/18 08/23/18 Range/Units 08:28 06:46 06:46 WBC 6.6 (4.8-10.8) K/uL RBC 3.12 L (3.80-5.20) Mil/uL Hgb 10.5 L (11.0-16.0) g/dL Hct 30.2 L (34.0-47.0) % MCV 96.7 (81.0-99.0) fL MCH 33.6 H (27.0-31.0) pg MCHC 34.8 (33.0-37.0) g/dL RDW 12.4 (11.5-14.5) % Plt Count 278 (130-400) K/uL MPV 8.5 (7.2-11.7) fL Neut % (Auto) 62.3 (50.0-75.0) % Lymph % (Auto) 21.0 (20.0-40.0) % Posey % (Auto) 11.5 H (0.0-10.0) % Eos % (Auto) 5.1 H (0.0-4.0) % Baso % (Auto) 0.1 (0.0-2.0) % Neut # (Auto) 4.1 (1.8-7.0) K/uL Lymph # (Auto) 1.4 (1.0-4.3) K/uL Posey # (Auto) 0.8 (0.0-0.8) K/uL Eos # (Auto) 0.3 (0.0-0.7) K/uL Baso # (Auto) 0.0 (0.0-0.2) K/uL APTT 45 H (21-34) SECONDS Sodium 140 (132-148) mmol/L Potassium 4.2 (3.6-5.2) mmol/L Chloride 109 H (98-107) mmol/L Carbon Dioxide 25 (22-30) mmol/L Anion Gap 11 (10-20) BUN 22 H (7-17) mg/dL Creatinine 1.0 (0.7-1.2) mg/dL Est GFR ( Amer) > 60 Est GFR (Non-Af Amer) 55 Random Glucose 87 (65-105) mg/dL Calcium 8.5 L (8.6-10.4) mg/dl Magnesium 1.9 (1.6-2.3) mg/dL Total Bilirubin 0.4 (0.2-1.3) mg/dL AST 17 (14-36) U/L ALT 26 (9-52) U/L Alkaline Phosphatase 93 (38-126) U/L Total Protein 5.4 L (6.3-8.3) g/dL Albumin 2.8 L (3.5-5.0) g/dL Globulin 2.6 (2.2-3.9) gm/dL Albumin/Globulin Ratio 1.1 (1.0-2.1) 08/23/18 08/22/18 Range/Units 01:33 17:55 WBC (4.8-10.8) K/uL RBC (3.80-5.20) Mil/uL Hgb (11.0-16.0) g/dL Hct (34.0-47.0) % MCV (81.0-99.0) fL MCH (27.0-31.0) pg MCHC (33.0-37.0) g/dL RDW (11.5-14.5) % Plt Count (130-400) K/uL MPV (7.2-11.7) fL Neut % (Auto) (50.0-75.0) % Lymph % (Auto) (20.0-40.0) % Posey % (Auto) (0.0-10.0) % Eos % (Auto) (0.0-4.0) % Baso % (Auto) (0.0-2.0) % Neut # (Auto) (1.8-7.0) K/uL Lymph # (Auto) (1.0-4.3) K/uL Posey # (Auto) (0.0-0.8) K/uL Eos # (Auto) (0.0-0.7) K/uL Baso # (Auto) (0.0-0.2) K/uL APTT 43 H D 37 H (21-34) SECONDS Sodium (132-148) mmol/L Potassium (3.6-5.2) mmol/L Chloride (98-107) mmol/L Carbon Dioxide (22-30) mmol/L Anion Gap (10-20) BUN (7-17) mg/dL Creatinine (0.7-1.2) mg/dL Est GFR ( Amer) Est GFR (Non-Af Amer) Random Glucose (65-105) mg/dL Calcium (8.6-10.4) mg/dl Magnesium (1.6-2.3) mg/dL Total Bilirubin (0.2-1.3) mg/dL AST (14-36) U/L ALT (9-52) U/L Alkaline Phosphatase (38-126) U/L Total Protein (6.3-8.3) g/dL Albumin (3.5-5.0) g/dL Globulin (2.2-3.9) gm/dL Albumin/Globulin Ratio (1.0-2.1) Laboratory Results - last 24 hr 08/22/18 08/23/18 08/23/18 17:55 01:33 06:46 WBC RBC Hgb Hct MCV MCH MCHC RDW Plt Count MPV Neut % (Auto) Lymph % (Auto) Posey % (Auto) Eos % (Auto) Baso % (Auto) Neut # (Auto) Lymph # (Auto) Posey # (Auto) Eos # (Auto) Baso # (Auto) APTT 37 H 43 H D Sodium 140 Potassium 4.2 Chloride 109 H Carbon Dioxide 25 Anion Gap 11 BUN 22 H Creatinine 1.0 Est GFR ( Amer) > 60 Est GFR (Non-Af Amer) 55 Random Glucose 87 Calcium 8.5 L Magnesium 1.9 Total Bilirubin 0.4 AST 17 ALT 26 Alkaline Phosphatase 93 Total Protein 5.4 L Albumin 2.8 L Globulin 2.6 Albumin/Globulin Ratio 1.1 08/23/18 08/23/18 06:46 08:28 WBC 6.6 RBC 3.12 L Hgb 10.5 L Hct 30.2 L MCV 96.7 MCH 33.6 H MCHC 34.8 RDW 12.4 Plt Count 278 MPV 8.5 Neut % (Auto) 62.3 Lymph % (Auto) 21.0 Posey % (Auto) 11.5 H Eos % (Auto) 5.1 H Baso % (Auto) 0.1 Neut # (Auto) 4.1 Lymph # (Auto) 1.4 Posey # (Auto) 0.8 Eos # (Auto) 0.3 Baso # (Auto) 0.0 APTT 45 H Sodium Potassium Chloride Carbon Dioxide Anion Gap BUN Creatinine Est GFR ( Amer) Est GFR (Non-Af Amer) Random Glucose Calcium Magnesium Total Bilirubin AST ALT Alkaline Phosphatase Total Protein Albumin Globulin Albumin/Globulin Ratio Fingerstick Blood Sugar Results: 90 Review of Systems - Review of Systems All systems: reviewed and no additional remarkable complaints except - EENT Eyes: As Per HPI - Cardiovascular Cardiovascular: As Per HPI - Respiratory Respiratory: As Per HPI - Gastrointestinal Gastrointestinal: As Per HPI - Genitourinary Genitourinary: As Per HPI - Musculoskeletal Musculoskeletal: As Par HPI - Neurological Neurological: As Per HPI - Psychiatric Psychiatric: As Per HPI - Endocrine Endocrine: As Per HPI - Hematologic/Lymphatic Hematologic: As Per HPI Critical Care Progress Note - Nutrition Nutrition: Nutrition Category Date Time Status Heart Healthy Diet [DIET] Diets 08/19/18 Lunch Active Assessment/Plan - Assessment and Plan (Free Text) Assessment: seen and examined this morning,denies pain Going to [facility] for EP study She was in sinus rhythm rate 60 Patient is a 68 year old female with past medical history of HTN presenting with chief complaint of chest pain that began approximately 4 days ago, was found to have severe bradycardia with HR in 40s and elevated troponins, now admitted to ICU for workup and management of NSTEMI. Patient is status-post TVP on 08/19. Currently she has TVP. On 08/21 Some adjustments were made to the rate by cardiology. Patient is currently at [facility] for EP studies. Plan: CV: - Currently hemodynamically stable, no pressors required at this time - Cardiology Dr. Degroot consulted. Appreciate recs. * S/P TVP on 08/19 * Currently with TVP * Will transfer to [facility] for Ep Studies today - Continue aspirin 81 mg PO daily, plavix 75 mg PO daily, rosuvastatin 20 mg PO HS - ECHO shows LVEF 65-70%, discontinuity of interatrial septum suggestive of ASD - s/p cardiac cath, proximal RCA 100% occluded, patent LAD, left circumflex patent - Heparin 25,000 in 250ml IV 8 units/kg/hr - held for EP study. Pulm: - CXR from this AM shows no active disease - Nasal cannula - Maintain SpO2>92% Neuro: - AAOx3 - Maintain normothermia GI: - NPO - Pepcid 20 mg IV daily Renal: - ARF resolved with IVF - Nephrology consulted. Recs appreciated. - Monitor I and O - NS 80 ccs/hr Endo: - Maintain euglycemia Heme: - Monitor H/H ID: - Afebrile, leukocytosis resolved - No active issues Of note, patient complained of generalized rash. Solumedrol 125mg IV ONCE was administered. Benadryl 20mg IV ONCE was given. PPX: Pepcid 20 mg IV daily, SCDs Patient seen and case discussed in detail with Dr. Berhane Paige PGY1 <Jose Last - Last Filed: 08/23/18 18:23> CCU Objective - Vital Signs / Intake & Output Vital Signs (Last 4 hours): Vital Signs Temp Pulse Resp BP Pulse Ox 08/23/18 16:00 99.2 F 63 16 113/53 L 96 08/23/18 15:16 66 15 113/53 L 94 L Intake and Output (Last 8hrs): Intake & Output 08/23/18 08/23/18 08/23/18 06:59 14:59 22:59 Intake Total 248.4 292.8 177.3 Output Total 850 Balance 248.4 -557.2 177.3 Weight 122 lb 7.342 oz Intake: IV 163 Intake, IV Amount 48.4 52.8 14.3 Right Wrist 48.4 52.8 14.3 Oral 200 240 Output: Urine 850 Urine, Voided 850 Other: # Voids Urine, Voided 1 - Medications Active Medications: Active Medications Generic Name Dose Route Start Last Admin Trade Name Freq PRN Reason Stop Dose Admin Aspirin 81 mg 08/18/18 10:00 08/23/18 09:15 Aspirin Chewable PO 81 mg DAILY SARAH Administration Clopidogrel Bisulfate 75 mg 08/18/18 10:00 08/23/18 09:16 Plavix PO 75 mg DAILY SARAH Administration Diphenhydramine HCl 25 mg 08/22/18 17:16 08/23/18 09:59 Benadryl PO 25 mg Q6 PRN Administration Allergy symptoms Docusate Sodium 100 mg 08/21/18 10:00 08/23/18 13:10 Colace PO Not Given TID [facility] Famotidine 20 mg 08/23/18 10:00 08/23/18 09:16 Pepcid PO 20 mg DAILY SARAH Administration Diltiazem HCl 125 mg/ Dextrose 125 mls @ 5 mls/hr 08/22/18 09:45 08/23/18 10:04 IV Not Given .Q24H SARAH Protocol 5 MG/HR Heparin Sodium/Sodium Chloride 25,000 units in 250 mls @ 6.6 mls/hr 08/23/18 02:15 08/23/18 15:49 Heparin 13301 Units/250ml 1/2 Normal Saline IV 14 units/kg/hr .Q24H PRN 7.7 mls/hr PROTOCOL Titration Protocol 12 UNITS/KG/HR Lactulose 20 gm 08/21/18 09:24 Enulose PO HS PRN Constipation Metoprolol Tartrate 25 mg 08/20/18 10:00 08/23/18 09:16 Lopressor PO 25 mg BID SARAH Administration Rosuvastatin Calcium 20 mg 08/17/18 22:00 08/22/18 21:23 Crestor PO 20 mg HS SARAH Administration Sennosides 8.6 mg 08/21/18 10:00 08/23/18 09:16 Senokot Tab PO 8.6 mg DAILY SARAH Administration - Patient Studies Lab Studies: Lab Studies 08/23/18 08/23/18 08/23/18 Range/Units 14:17 08:28 06:46 WBC 6.6 (4.8-10.8) K/uL RBC 3.12 L (3.80-5.20) Mil/uL Hgb 10.5 L (11.0-16.0) g/dL Hct 30.2 L (34.0-47.0) % MCV 96.7 (81.0-99.0) fL MCH 33.6 H (27.0-31.0) pg MCHC 34.8 (33.0-37.0) g/dL RDW 12.4 (11.5-14.5) % Plt Count 278 (130-400) K/uL MPV 8.5 (7.2-11.7) fL Neut % (Auto) 62.3 (50.0-75.0) % Lymph % (Auto) 21.0 (20.0-40.0) % Posey % (Auto) 11.5 H (0.0-10.0) % Eos % (Auto) 5.1 H (0.0-4.0) % Baso % (Auto) 0.1 (0.0-2.0) % Neut # (Auto) 4.1 (1.8-7.0) K/uL Lymph # (Auto) 1.4 (1.0-4.3) K/uL Posey # (Auto) 0.8 (0.0-0.8) K/uL Eos # (Auto) 0.3 (0.0-0.7) K/uL Baso # (Auto) 0.0 (0.0-0.2) K/uL APTT 39 H D 45 H (21-34) SECONDS Sodium (132-148) mmol/L Potassium (3.6-5.2) mmol/L Chloride (98-107) mmol/L Carbon Dioxide (22-30) mmol/L Anion Gap (10-20) BUN (7-17) mg/dL Creatinine (0.7-1.2) mg/dL Est GFR ( Amer) Est GFR (Non-Af Amer) Random Glucose (65-105) mg/dL Calcium (8.6-10.4) mg/dl Magnesium (1.6-2.3) mg/dL Total Bilirubin (0.2-1.3) mg/dL AST (14-36) U/L ALT (9-52) U/L Alkaline Phosphatase (38-126) U/L Total Protein (6.3-8.3) g/dL Albumin (3.5-5.0) g/dL Globulin (2.2-3.9) gm/dL Albumin/Globulin Ratio (1.0-2.1) 08/23/18 08/23/18 Range/Units 06:46 01:33 WBC (4.8-10.8) K/uL RBC (3.80-5.20) Mil/uL Hgb (11.0-16.0) g/dL Hct (34.0-47.0) % MCV (81.0-99.0) fL MCH (27.0-31.0) pg MCHC (33.0-37.0) g/dL RDW (11.5-14.5) % Plt Count (130-400) K/uL MPV (7.2-11.7) fL Neut % (Auto) (50.0-75.0) % Lymph % (Auto) (20.0-40.0) % Posey % (Auto) (0.0-10.0) % Eos % (Auto) (0.0-4.0) % Baso % (Auto) (0.0-2.0) % Neut # (Auto) (1.8-7.0) K/uL Lymph # (Auto) (1.0-4.3) K/uL Posey # (Auto) (0.0-0.8) K/uL Eos # (Auto) (0.0-0.7) K/uL Baso # (Auto) (0.0-0.2) K/uL APTT 43 H D (21-34) SECONDS Sodium 140 (132-148) mmol/L Potassium 4.2 (3.6-5.2) mmol/L Chloride 109 H (98-107) mmol/L Carbon Dioxide 25 (22-30) mmol/L Anion Gap 11 (10-20) BUN 22 H (7-17) mg/dL Creatinine 1.0 (0.7-1.2) mg/dL Est GFR ( Amer) > 60 Est GFR (Non-Af Amer) 55 Random Glucose 87 (65-105) mg/dL Calcium 8.5 L (8.6-10.4) mg/dl Magnesium 1.9 (1.6-2.3) mg/dL Total Bilirubin 0.4 (0.2-1.3) mg/dL AST 17 (14-36) U/L ALT 26 (9-52) U/L Alkaline Phosphatase 93 (38-126) U/L Total Protein 5.4 L (6.3-8.3) g/dL Albumin 2.8 L (3.5-5.0) g/dL Globulin 2.6 (2.2-3.9) gm/dL Albumin/Globulin Ratio 1.1 (1.0-2.1) Laboratory Results - last 24 hr 08/23/18 08/23/18 08/23/18 01:33 06:46 06:46 WBC 6.6 RBC 3.12 L Hgb 10.5 L Hct 30.2 L MCV 96.7 MCH 33.6 H MCHC 34.8 RDW 12.4 Plt Count 278 MPV 8.5 Neut % (Auto) 62.3 Lymph % (Auto) 21.0 Posey % (Auto) 11.5 H Eos % (Auto) 5.1 H Baso % (Auto) 0.1 Neut # (Auto) 4.1 Lymph # (Auto) 1.4 Posey # (Auto) 0.8 Eos # (Auto) 0.3 Baso # (Auto) 0.0 APTT 43 H D Sodium 140 Potassium 4.2 Chloride 109 H Carbon Dioxide 25 Anion Gap 11 BUN 22 H Creatinine 1.0 Est GFR ( Amer) > 60 Est GFR (Non-Af Amer) 55 Random Glucose 87 Calcium 8.5 L Magnesium 1.9 Total Bilirubin 0.4 AST 17 ALT 26 Alkaline Phosphatase 93 Total Protein 5.4 L Albumin 2.8 L Globulin 2.6 Albumin/Globulin Ratio 1.1 08/23/18 08/23/18 08:28 14:17 WBC RBC Hgb Hct MCV MCH MCHC RDW Plt Count MPV Neut % (Auto) Lymph % (Auto) Posey % (Auto) Eos % (Auto) Baso % (Auto) Neut # (Auto) Lymph # (Auto) Posey # (Auto) Eos # (Auto) Baso # (Auto) APTT 45 H 39 H D Sodium Potassium Chloride Carbon Dioxide Anion Gap BUN Creatinine Est GFR ( Amer) Est GFR (Non-Af Amer) Random Glucose Calcium Magnesium Total Bilirubin AST ALT Alkaline Phosphatase Total Protein Albumin Globulin Albumin/Globulin Ratio Critical Care Progress Note - Nutrition Nutrition: Nutrition Category Date Time Status Heart Healthy Diet [DIET] Diets 08/19/18 Lunch Active Attending/Attestation - Attestation I have personally seen and examined this patient.: Yes I have fully participated in the care of the patient.: Yes I have reviewed all pertinent clinical information: Yes Notes (Text): 08/23/18 18:22 Patient seen and examined in the intensive care unit. Denies any chest pain denies any shortness of breath for EPS study at [facility]
--- NOTE | 2018-08-23 10:49 | CP.PCM.PN ---
Subjective - Date & Time of Evaluation Date of Evaluation: 08/23/18 Time of Evaluation: 10:48 - Subjective Subjective: hemodynamically stable pending EP study denies any cp sob n/v/d/dizziness/dysuria Objective - Vital Signs/Intake and Output Vital Signs (last 24 hours): Temp Pulse Resp BP Pulse Ox 98.7 F 64 17 103/43 L 97 08/23/18 08:00 08/23/18 10:00 08/23/18 10:00 08/23/18 09:18 08/23/18 10:00 Intake and Output: 08/23/18 08/23/18 06:59 18:59 Intake Total 544.4 266.4 Output Total 550 Balance 544.4 -283.6 - Medications Medications: Current Medications Aspirin (Aspirin Chewable) 81 mg PO DAILY [facility] Last Admin: 08/23/18 09:15 Dose: 81 mg Clopidogrel Bisulfate (Plavix) 75 mg PO DAILY [facility] Last Admin: 08/23/18 09:16 Dose: 75 mg Diphenhydramine HCl (Benadryl) 25 mg PO Q6 PRN PRN Reason: Allergy symptoms Last Admin: 08/23/18 09:59 Dose: 25 mg Docusate Sodium (Colace) 100 mg PO TID [facility] Last Admin: 08/23/18 09:16 Dose: 100 mg Famotidine (Pepcid) 20 mg PO DAILY [facility] Last Admin: 08/23/18 09:16 Dose: 20 mg Diltiazem HCl 125 mg/ Dextrose 125 mls @ 5 mls/hr IV .Q24H [facility]; Protocol Last Admin: 08/23/18 10:04 Dose: Not Given Heparin Sodium/Sodium Chloride (Heparin 55849 Units/250ml 1/2 Normal Saline) 25,000 units in 250 mls @ 5.5 mls/hr IV .Q24H PRN; Protocol PRN Reason: PROTOCOL Last Admin: 08/23/18 02:15 Dose: 12 units/kg/hr, 6.6 mls/hr Lactulose (Enulose) 20 gm PO HS PRN PRN Reason: Constipation Metoprolol Tartrate (Lopressor) 25 mg PO BID [facility] Last Admin: 08/23/18 09:16 Dose: 25 mg Rosuvastatin Calcium (Crestor) 20 mg PO HS [facility] Last Admin: 08/22/18 21:23 Dose: 20 mg Sennosides (Senokot Tab) 8.6 mg PO DAILY SARAH Last Admin: 08/23/18 09:16 Dose: 8.6 mg - Labs Labs: 08/23/18 06:46 08/23/18 06:46 PT 11.7 SECONDS (9.7-12.2) 08/17/18 11:17 INR 1.1 08/17/18 11:17 APTT 45 SECONDS (21-34) H 08/23/18 08:28 - Constitutional Appears: No Acute Distress, Chronically Ill - Head Exam Head Exam: NORMAL INSPECTION, NORMOCEPHALIC - Eye Exam Eye Exam: Normal appearance, PERRL - ENT Exam ENT Exam: Mucous Membranes Moist, Normal Exam - Neck Exam Neck Exam: Full ROM, Normal Inspection - Respiratory Exam Respiratory Exam: Clear to Ausculation Bilateral, NORMAL BREATHING PATTERN - Cardiovascular Exam Cardiovascular Exam: REGULAR RHYTHM, RRR - Extremities Exam Extremities Exam: Full ROM, Normal Inspection - Neurological Exam Neurological Exam: Alert, Awake, Oriented x3 - Psychiatric Exam Psychiatric exam: Normal Affect, Normal Mood - Skin Skin Exam: Dry, Intact Assessment and Plan (1) Acute renal failure Status: Acute (2) NSTEMI (non-ST elevated myocardial infarction) Status: Acute (3) Hypertension Status: Acute (4) Bradycardia Status: Acute - Assessment and Plan (Free Text) Assessment: stable renal function meds reviewed cardiac w/u
[2018-08-23] MEDS ORDERED: DiphenhydrAMINE 50 mg/ml Inj IVP STA (11:04)
--- NOTE | 2018-08-23 14:40 | CP.PCM.PN ---
Subjective - Date & Time of Evaluation Date of Evaluation: 08/23/18 Time of Evaluation: 09:00 - Subjective Subjective: seen and examined this morning,denies pain Going to [facility] for EP study She was in sinus rhythm rate 60 Objective - Vital Signs/Intake and Output Vital Signs (last 24 hours): Temp Pulse Resp BP Pulse Ox 98.2 F 62 17 119/38 L 97 08/23/18 12:00 08/23/18 14:17 08/23/18 14:17 08/23/18 14:17 08/23/18 14:17 Intake and Output: 08/23/18 08/23/18 06:59 18:59 Intake Total 544.4 292.8 Output Total 850 Balance 544.4 -557.2 - Medications Medications: Current Medications Aspirin (Aspirin Chewable) 81 mg PO DAILY [facility] Last Admin: 08/23/18 09:15 Dose: 81 mg Clopidogrel Bisulfate (Plavix) 75 mg PO DAILY [facility] Last Admin: 08/23/18 09:16 Dose: 75 mg Diphenhydramine HCl (Benadryl) 25 mg PO Q6 PRN PRN Reason: Allergy symptoms Last Admin: 08/23/18 09:59 Dose: 25 mg Docusate Sodium (Colace) 100 mg PO TID [facility] Last Admin: 08/23/18 13:10 Dose: Not Given Famotidine (Pepcid) 20 mg PO DAILY [facility] Last Admin: 08/23/18 09:16 Dose: 20 mg Diltiazem HCl 125 mg/ Dextrose 125 mls @ 5 mls/hr IV .Q24H [facility]; Protocol Last Admin: 08/23/18 10:04 Dose: Not Given Heparin Sodium/Sodium Chloride (Heparin 40840 Units/250ml 1/2 Normal Saline) 25,000 units in 250 mls @ 5.5 mls/hr IV .Q24H PRN; Protocol PRN Reason: PROTOCOL Last Admin: 08/23/18 02:15 Dose: 12 units/kg/hr, 6.6 mls/hr Lactulose (Enulose) 20 gm PO HS PRN PRN Reason: Constipation Metoprolol Tartrate (Lopressor) 25 mg PO BID [facility] Last Admin: 08/23/18 09:16 Dose: 25 mg Rosuvastatin Calcium (Crestor) 20 mg PO HS [facility] Last Admin: 08/22/18 21:23 Dose: 20 mg Sennosides (Senokot Tab) 8.6 mg PO DAILY [facility]AH Last Admin: 08/23/18 09:16 Dose: 8.6 mg - Labs Labs: 08/23/18 06:46 08/23/18 06:46 PT 11.7 SECONDS (9.7-12.2) 08/17/18 11:17 INR 1.1 08/17/18 11:17 APTT 45 SECONDS (21-34) H 08/23/18 08:28 - Constitutional Appears: Non-toxic - Head Exam Head Exam: NORMAL INSPECTION - Eye Exam Eye Exam: Normal appearance - ENT Exam ENT Exam: Mucous Membranes Moist - Neck Exam Neck Exam: Full ROM - Respiratory Exam Respiratory Exam: Clear to Ausculation Bilateral, NORMAL BREATHING PATTERN - Cardiovascular Exam Cardiovascular Exam: REGULAR RHYTHM - GI/Abdominal Exam GI & Abdominal Exam: Soft, Normal Bowel Sounds - Extremities Exam Extremities Exam: Full ROM, Normal Inspection - Back Exam Back Exam: NORMAL INSPECTION - Neurological Exam Neurological Exam: Awake, Oriented x3 - Psychiatric Exam Psychiatric exam: Normal Mood - Skin Skin Exam: Dry, Normal Color Assessment and Plan - Assessment and Plan (Free Text) Plan: 1 Sick sinus,Tachybrady syndrome Patient had TVP on 08/19. Currently she has TVP sinus rhythm rate 60 patient is asymptomatic .going for EP study at [facility] 2 NSTEMI- Acute NV We will continue ASA, Plavix, statin.now on heparin drip for afib s/p PCI on 08/19 The PCI was not successful, remains on medical management at this moment. Possible PCI soon,we will follow cardio and nephrology (On admission patient had first troponin 8.1, EKG showing severe bradycardia and T wave inversions. started on heparin ggt, Plavix loading 300 and then 75 daily, ASA 325 already and 81 daily. ) 3.Atrial fibrillation/newonset started on heparin yesterday 4 Acute vs chronic kidney disease -Resolved nephrology follow up appreciated 3 Hx of smoking 08/17: smoking since age 13 or 14 dvt prophy is on heparin GI on pepcid
--- NOTE | 2018-08-23 19:31 | CARD ---
APPROVED REPORT Date of service: 08/21/2018 EKG Measurement Heart [id number] ID [id number] <Conclusion> Sinus bradycardia ST & T wave abnormality, consider inferior ischemia ST & T wave abnormality, consider anterolateral ischemia Abnormal ECG
--- NOTE | 2018-08-23 19:32 | CARD ---
APPROVED REPORT Date of service: 08/20/2018 EKG Measurement Heart [id number] <Conclusion> Ventricular-paced rhythm Abnormal ECG
--- NOTE | 2018-08-23 21:45 | CP.PCM.PN ---
Subjective - Date & Time of Evaluation Date of Evaluation: 08/23/18 Time of Evaluation: 10:05 - Subjective Subjective: seen and examined this morning,denies pain Going to [place] for EP study Occasionally using the pacer Physical Examination - Constitutional Appears: Non-toxic - Head Exam Head Exam: NORMAL INSPECTION - Eye Exam Eye Exam: Normal appearance - ENT Exam ENT Exam: Mucous Membranes Moist - Neck Exam Neck Exam: Full ROM - Respiratory Exam Respiratory Exam: Clear to Ausculation Bilateral, NORMAL BREATHING PATTERN - Cardiovascular Exam Cardiovascular Exam: REGULAR RHYTHM - GI/Abdominal Exam GI & Abdominal Exam: Soft, Normal Bowel Sounds - Extremities Exam Extremities Exam: Full ROM, Normal Inspection - Back Exam Back Exam: NORMAL INSPECTION - Neurological Exam Neurological Exam: Awake, Oriented x3 - Psychiatric Exam Psychiatric exam: Normal Mood - Skin Skin Exam: Dry, Normal Color Assessment and Plan - Assessment and Plan (Free Text) Plan: 1 Sick sinus,Tachybrady syndrome Patient had TVP on 08/19. Currently she has TVP sinus rhythm rate 60 patient is asymptomatic .going for EP study at [facility] 2 NSTEMI- Acute MT We will continue ASA, Plavix, statin.now on heparin drip for afib s/p PCI on 08/19 The PCI was not successful, remains on medical management at this moment. Possible PCI soon,we will follow cardio and nephrology (On admission patient had first troponin 8.1, EKG showing severe bradycardia and T wave inversions. started on heparin ggt, Plavix loading 300 and then 75 daily, ASA 325 already and 81 daily. ) 3.Atrial fibrillation/newonset started on heparin yesterday 4 Acute vs chronic kidney disease -Resolved nephrology follow up appreciated 3 Hx of smoking 08/17: smoking since age 13 or 14 dvt prophy is on heparin GI on pepcid Objective - Vital Signs/Intake and Output Vital Signs (last 24 hours): Temp Pulse Resp BP Pulse Ox 99.2 F 63 16 113/53 L 96 08/23/18 16:00 08/23/18 16:00 08/23/18 16:00 08/23/18 16:00 08/23/18 16:00 Intake and Output: 08/23/18 08/24/18 18:59 06:59 Intake Total 470.1 Output Total 850 Balance -379.9 - Medications Medications: Current Medications Aspirin (Aspirin Chewable) 81 mg PO DAILY SARAH Last Admin: 10/23/18 09:15 Dose: 81 mg Clopidogrel Bisulfate (Plavix) 75 mg PO DAILY [facility] Last Admin: 08/23/18 09:16 Dose: 75 mg Diphenhydramine HCl (Benadryl) 25 mg PO Q6 PRN PRN Reason: Allergy symptoms Last Admin: 08/23/18 09:59 Dose: 25 mg Docusate Sodium (Colace) 100 mg PO TID [facility] Last Admin: 08/23/18 13:10 Dose: Not Given Famotidine (Pepcid) 20 mg PO DAILY [facility] Last Admin: 08/23/18 09:16 Dose: 20 mg Diltiazem HCl 125 mg/ Dextrose 125 mls @ 5 mls/hr IV .Q24H [facility]; Protocol Last Admin: 08/23/18 10:04 Dose: Not Given Heparin Sodium/Sodium Chloride (Heparin 32912 Units/250ml 1/2 Normal Saline) 25,000 units in 250 mls @ 6.6 mls/hr IV .Q24H PRN; Protocol PRN Reason: PROTOCOL Last Titration: 08/23/18 15:49 Dose: 14 units/kg/hr, 7.7 mls/hr Lactulose (Enulose) 20 gm PO HS PRN PRN Reason: Constipation Metoprolol Tartrate (Lopressor) 25 mg PO BID [facility] Last Admin: 08/23/18 09:16 Dose: 25 mg Rosuvastatin Calcium (Crestor) 20 mg PO HS [facility] Last Admin: 08/22/18 21:23 Dose: 20 mg Sennosides (Senokot Tab) 8.6 mg PO DAILY [facility] Last Admin: 08/23/18 09:16 Dose: 8.6 mg - Labs Labs: 08/23/18 06:46 08/23/18 06:46 PT 11.7 SECONDS (9.7-12.2) 08/17/18 11:17 INR 1.1 08/17/18 11:17 APTT 39 SECONDS (21-34) H D 08/23/18 14:17
[2018-08-24 08:30] LABS: BASO % 0.5 % (0.0-2.0); EOS # 0.2 K/uL (0.0-0.7); EOS % 2.5 % (0.0-4.0); LYMPH # 1.2 K/uL (1.0-4.3); LYMPH % 12.5 % (20.0-40.0); MEAN CELL VOLUME 96.6 fL (81.0-99.0); MEAN CORPUSCULAR HEMOGLOBIN 33.7 pg (27.0-31.0); MEAN CORPUSCULAR HGB CONC 34.8 g/dL (33.0-37.0); MONO # 0.8 K/uL (0.0-0.8); MONO % 8.5 % (0.0-10.0); NEUT # 7.3 K/uL (1.8-7.0); RBC 3.27 Mil/uL (3.80-5.20); RED CELL DISTRIBUTION WIDTH 12.6 % (11.5-14.5); WHITE BLOOD COUNT 9.5 K/uL (4.8-10.8)
[2018-08-24] MEDS ORDERED: Enoxaparin 60 mg Syringe SC SCH (08:30)
[2018-08-24 09:10] LABS: ALB/GLOB RATIO 1.1 (1.0-2.1); ALBUMIN 3.4 g/dL (3.5-5.0); ALT/SGPT 26 U/L (9-52); AST/SGOT 17 U/L (14-36); BLOOD UREA NITROGEN 28 mg/dL (7-17); CALCIUM 9.4 mg/dl (8.6-10.4); GFR NON-AFRICAN AMERICAN > 60
[2018-08-24 10:35] VITALS: O2SAT 100
--- NOTE | 2018-08-24 14:02 | CP.PCM.CON ---
History of Present Illness - History of Present Illness History of Present Illness: ep study negative noted drug rash over lower extremities no chest pain no sob no fever no chills no headache no problems urinating Review of Systems - Constitutional Constitutional: absent: Fever, Lethargy - EENT Nose/Mouth/Throat: absent: Epistaxis, Nasal Congestion - Respiratory Respiratory: absent: Cough, Dyspnea Past Patient History - Past Medical History & Family History Past Medical History?: Yes - Past Social History Smoking Status: Heavy Smoker > 10 Cigarettes Daily - CARDIAC Hx Hypertension: Yes - PULMONARY Hx Respiratory Disorders: No - NEUROLOGICAL Hx Neurological Disorder: No - HEENT Hx HEENT Problems: No - RENAL Hx Chronic Kidney Disease: No - ENDOCRINE/METABOLIC Hx Endocrine Disorders: No - HEMATOLOGICAL/ONCOLOGICAL Hx Blood Disorders: No - INTEGUMENTARY Hx Dermatological Problems: No - MUSCULOSKELETAL/RHEUMATOLOGICAL Hx Musculoskeletal Disorders: No - GASTROINTESTINAL Hx Gastrointestinal Disorders: No - GENITOURINARY/GYNECOLOGICAL Hx Genitourinary Disorders: No - PSYCHIATRIC Hx Substance Use: No - SURGICAL HISTORY Hx Surgeries: No - ANESTHESIA Hx Anesthesia: No Meds Allergies/Adverse Reactions: Allergies Allergy/AdvReac Type Severity Reaction Status Date / Time No Known Allergies Allergy Verified 08/17/18 10:46 - Medications Medications: Current Medications Aspirin (Aspirin Chewable) 81 mg PO DAILY [facility] Last Admin: 08/24/18 09:22 Dose: 81 mg Clopidogrel Bisulfate (Plavix) 75 mg PO DAILY [facility] Last Admin: 08/24/18 09:23 Dose: 75 mg Diphenhydramine HCl (Benadryl) 25 mg PO Q6 PRN PRN Reason: Allergy symptoms Last Admin: 08/24/18 09:30 Dose: 25 mg Docusate Sodium (Colace) 100 mg PO TID [facility] Last Admin: 08/24/18 09:22 Dose: 100 mg Enoxaparin Sodium (Lovenox) 54 mg SC Q12H [facility] Last Admin: 08/24/18 09:22 Dose: 54 mg Famotidine (Pepcid) 20 mg PO DAILY [facility] Last Admin: 08/24/18 09:22 Dose: 20 mg Lactulose (Enulose) 20 gm PO HS PRN PRN Reason: Constipation Metoprolol Tartrate (Lopressor) 25 mg PO BID [facility] Last Admin: 08/24/18 09:23 Dose: 25 mg Rosuvastatin Calcium (Crestor) 20 mg PO HS [facility] Last Admin: 08/23/18 22:56 Dose: 20 mg Sennosides (Senokot Tab) 8.6 mg PO DAILY [facility] Last Admin: 08/24/18 09:23 Dose: 8.6 mg Results - Vital Signs Recent Vital Signs: Last Vital Signs Temp 97.8 F 08/24/18 09:00 Pulse 55 L 08/24/18 11:11 Resp 13 08/24/18 11:11 BP 125/44 L 08/24/18 11:11 Pulse Ox 100 08/24/18 11:11 - Labs Result Diagrams: 08/24/18 08:24 08/24/18 08:24 Labs: Laboratory Results - last 24 hr 08/23/18 08/24/18 08/24/18 14:17 08:24 08:24 WBC 9.5 RBC 3.27 L Hgb 11.0 Hct 31.6 L MCV 96.6 MCH 33.7 H MCHC 34.8 RDW 12.6 Plt Count 340 MPV 8.0 Neut % (Auto) 76.0 H Lymph % (Auto) 12.5 L [place] % (Auto) 8.5 Eos % (Auto) 2.5 Baso % (Auto) 0.5 Neut # (Auto) 7.3 H Lymph # (Auto) 1.2 [place] # (Auto) 0.8 Eos # (Auto) 0.2 Baso # (Auto) 0.0 APTT 39 H D Sodium 143 Potassium 4.9 Chloride 108 H Carbon Dioxide 25 Anion Gap 15 BUN 28 H Creatinine 0.9 Est GFR ( Amer) > 60 Est GFR (Non-Af Amer) > 60 Random Glucose 93 Calcium 9.4 Phosphorus 4.3 Magnesium 2.1 Total Bilirubin 0.4 AST 17 ALT 26 Alkaline Phosphatase 97 Total Protein 6.5 Albumin 3.4 L D Globulin 3.0 Albumin/Globulin Ratio 1.1
--- NOTE | 2018-08-24 14:05 | CP.PCM.PN ---
Subjective - Date & Time of Evaluation Date of Evaluation: 08/24/18 Time of Evaluation: 14:03 - Subjective Subjective: EP study negative drug rash noted over legs no fever or chills good appetite no problems urinating no abdominal pain no headaches no sinus pain Objective - Vital Signs/Intake and Output Vital Signs (last 24 hours): Temp Pulse Resp BP Pulse Ox 97.8 F 55 L 13 125/44 L 100 08/24/18 09:00 08/24/18 11:11 08/24/18 11:11 08/24/18 11:11 08/24/18 11:11 Intake and Output: 08/24/18 08/24/18 06:59 18:59 Intake Total 100 100 Output Total 350 250 Balance -250 -150 - Medications Medications: Current Medications Aspirin (Aspirin Chewable) 81 mg PO DAILY [facility] Last Admin: 08/24/18 09:22 Dose: 81 mg Clopidogrel Bisulfate (Plavix) 75 mg PO DAILY [facility] Last Admin: 08/24/18 09:23 Dose: 75 mg Diphenhydramine HCl (Benadryl) 25 mg PO Q6 PRN PRN Reason: Allergy symptoms Last Admin: 08/24/18 09:30 Dose: 25 mg Docusate Sodium (Colace) 100 mg PO TID [facility] Last Admin: 08/24/18 09:22 Dose: 100 mg Enoxaparin Sodium (Lovenox) 54 mg SC Q12H [facility] Last Admin: 08/24/18 09:22 Dose: 54 mg Famotidine (Pepcid) 20 mg PO DAILY [facility] Last Admin: 08/24/18 09:22 Dose: 20 mg Lactulose (Enulose) 20 gm PO HS PRN PRN Reason: Constipation Metoprolol Tartrate (Lopressor) 25 mg PO BID [facility] Last Admin: 08/24/18 09:23 Dose: 25 mg Rosuvastatin Calcium (Crestor) 20 mg PO HS [facility] Last Admin: 08/23/18 22:56 Dose: 20 mg Sennosides (Senokot Tab) 8.6 mg PO DAILY [facility] Last Admin: 08/24/18 09:23 Dose: 8.6 mg - Labs Labs: 08/24/18 08:24 08/24/18 08:24 PT 11.7 SECONDS (9.7-12.2) 08/17/18 11:17 INR 1.1 08/17/18 11:17 APTT 39 SECONDS (21-34) H D 08/23/18 14:17 - Constitutional Appears: Non-toxic, No Acute Distress - Head Exam Head Exam: ATRAUMATIC, NORMAL INSPECTION - Eye Exam Eye Exam: EOMI, Normal appearance - ENT Exam ENT Exam: Mucous Membranes Moist - Neck Exam Neck Exam: Full ROM. absent: Lymphadenopathy - Respiratory Exam Respiratory Exam: Clear to Ausculation Bilateral. absent: Accessory Muscle Use - Cardiovascular Exam Cardiovascular Exam: REGULAR RHYTHM - GI/Abdominal Exam GI & Abdominal Exam: Soft. absent: Tenderness - Extremities Exam Extremities Exam: absent: Pedal Edema - Neurological Exam Neurological Exam: Alert, Awake - Skin Skin Exam: Rash Assessment and Plan - Assessment and Plan (Free Text) Assessment: stable brittany, now resolved s/p tachy-stefan syndrome ?drug rash over legs
--- NOTE | 2018-08-24 16:12 | CP.CCUPN ---
Addendum entered and electronically signed by Sam Paige DO 08/24/18 16:40: Addendum to Progress Note 08/24 Critical Care Time Spent (in minutes): 35 Sam Paige PGY1 Original Note: <Sam Paige - Last Filed: 08/24/18 16:18> CCU Subjective - Physician Review Events Since Last Encounter (Free Text): 08/24/18 16:18 No acute complaints. Patient is back from EP study at [facility] performed yesterday. Patient hemodynamically stable. Subjective (Free Text): 08/24/18 16:11 PGY1 Critical Care Consult Note for Dr. Last Patient seen at bedside this morning. No acute complaints. Patient tolerating PO without issue. Patient denies chest pain, shortness of breath, headache, dizziness, pain, and/or palpitations. Of note, patient returned from [facility] for EP Study. Patient does not require permanent pacemaker at this time. Patient tolerated EP Study without issue. Patient is hemodynamically stable and sinus rhythm. CCU Objective - Vital Signs / Intake & Output Vital Signs (Last 4 hours): Vital Signs Temp Pulse Resp BP Pulse Ox 08/24/18 14:11 54 L 11 L 116/41 L 08/24/18 13:12 51 L 16 117/32 L 100 08/24/18 13:00 97.7 F 100 Intake and Output (Last 8hrs): Intake & Output 08/24/18 08/24/18 08/24/18 06:59 14:59 22:59 Intake Total 100 350 Output Total 350 550 Balance -250 -200 Weight 119 lb Intake: Intake, IV Amount 0 Right Wrist 0 Oral 100 350 Output: Urine 350 550 Urine, Voided 350 550 Other: # Voids Urine, Voided 1 1 # Bowel Movements 1 - Physical Exam Head: Positive for: Atraumatic, Normocephalic Pupils: Positive for: PERRL Extroacular Muscles: Positive for: EOMI Conjunctiva: Positive for: Normal Mouth: Positive for: Moist Mucous Membranes Neck: Positive for: Normal Range of Motion Respiratory/Chest: Positive for: Clear to Auscultation, Good Air Exchange. Negative for: Respiratory Distress Cardiovascular: Positive for: Regular Rate and Rhythm, Normal S1, S2 Abdomen: Positive for: Normal Bowel Sounds. Negative for: Tenderness, Distention, Peritoneal Signs Upper Extremity: Positive for: Normal Inspection, Normal ROM. Negative for: Cyanosis, Edema Lower Extremity: Positive for: Normal Inspection, NORMAL PULSES. Negative for: Edema, CALF TENDERNESS Neurological: Positive for: GCS=15, CN II-XII Intact, Speech Normal Skin: Positive for: Warm, Dry, Normal Color. Negative for: Rashes Psychiatric: Positive for: Alert, Oriented x 3, Normal Insight, Normal Concentration - Medications Active Medications: Active Medications Generic Name Dose Route Start Last Admin Trade Name Freq PRN Reason Stop Dose Admin Apixaban 2.5 mg 08/24/18 20:00 Eliquis PO BID SARAH Aspirin 81 mg 08/18/18 10:00 08/24/18 09:22 Aspirin Chewable PO 81 mg DAILY [facility] Administration Diphenhydramine HCl 25 mg 08/22/18 17:16 08/24/18 09:30 Benadryl PO 25 mg Q6 PRN Administration Allergy symptoms Docusate Sodium 100 mg 08/21/18 10:00 08/24/18 14:23 Colace PO 100 mg TID SARAH Administration Famotidine 20 mg 08/23/18 10:00 08/24/18 09:22 Pepcid PO 20 mg DAILY SARAH Administration Lactulose 20 gm 08/21/18 09:24 Enulose PO HS PRN Constipation Rosuvastatin Calcium 20 mg 08/17/18 22:00 08/23/18 22:56 Crestor PO 20 mg HS SARAH Administration Sennosides 8.6 mg 08/21/18 10:00 08/24/18 09:23 Senokot Tab PO 8.6 mg DAILY SARAH Administration - Patient Studies Lab Studies: Lab Studies 08/24/18 08/24/18 Range/Units 08:24 08:24 WBC 9.5 (4.8-10.8) K/uL RBC 3.27 L (3.80-5.20) Mil/uL Hgb 11.0 (11.0-16.0) g/dL Hct 31.6 L (34.0-47.0) % MCV 96.6 (81.0-99.0) fL MCH 33.7 H (27.0-31.0) pg MCHC 34.8 (33.0-37.0) g/dL RDW 12.6 (11.5-14.5) % Plt Count 340 (130-400) K/uL MPV 8.0 (7.2-11.7) fL Neut % (Auto) 76.0 H (50.0-75.0) % Lymph % (Auto) 12.5 L (20.0-40.0) % [place] % (Auto) 8.5 (0.0-10.0) % Eos % (Auto) 2.5 (0.0-4.0) % Baso % (Auto) 0.5 (0.0-2.0) % Neut # (Auto) 7.3 H (1.8-7.0) K/uL Lymph # (Auto) 1.2 (1.0-4.3) K/uL [place] # (Auto) 0.8 (0.0-0.8) K/uL Eos # (Auto) 0.2 (0.0-0.7) K/uL Baso # (Auto) 0.0 (0.0-0.2) K/uL Sodium 143 (132-148) mmol/L Potassium 4.9 (3.6-5.2) mmol/L Chloride 108 H (98-107) mmol/L Carbon Dioxide 25 (22-30) mmol/L Anion Gap 15 (10-20) BUN 28 H (7-17) mg/dL Creatinine 0.9 (0.7-1.2) mg/dL Est GFR ( Amer) > 60 Est GFR (Non-Af Amer) > 60 Random Glucose 93 (65-105) mg/dL Calcium 9.4 (8.6-10.4) mg/dl Phosphorus 4.3 (2.5-4.5) mg/dL Magnesium 2.1 (1.6-2.3) mg/dL Total Bilirubin 0.4 (0.2-1.3) mg/dL AST 17 (14-36) U/L ALT 26 (9-52) U/L Alkaline Phosphatase 97 (38-126) U/L Total Protein 6.5 (6.3-8.3) g/dL Albumin 3.4 L D (3.5-5.0) g/dL Globulin 3.0 (2.2-3.9) gm/dL Albumin/Globulin Ratio 1.1 (1.0-2.1) Laboratory Results - last 24 hr 08/24/18 08/24/18 08:24 08:24 WBC 9.5 RBC 3.27 L Hgb 11.0 Hct 31.6 L MCV 96.6 MCH 33.7 H MCHC 34.8 RDW 12.6 Plt Count 340 MPV 8.0 Neut % (Auto) 76.0 H Lymph % (Auto) 12.5 L [place] % (Auto) 8.5 Eos % (Auto) 2.5 Baso % (Auto) 0.5 Neut # (Auto) 7.3 H Lymph # (Auto) 1.2 [place] # (Auto) 0.8 Eos # (Auto) 0.2 Baso # (Auto) 0.0 Sodium 143 Potassium 4.9 Chloride 108 H Carbon Dioxide 25 Anion Gap 15 BUN 28 H Creatinine 0.9 Est GFR ( Amer) > 60 Est GFR (Non-Af Amer) > 60 Random Glucose 93 Calcium 9.4 Phosphorus 4.3 Magnesium 2.1 Total Bilirubin 0.4 AST 17 ALT 26 Alkaline Phosphatase 97 Total Protein 6.5 Albumin 3.4 L D Globulin 3.0 Albumin/Globulin Ratio 1.1 Fingerstick Blood Sugar Results: 90 Review of Systems - Review of Systems All systems: reviewed and no additional remarkable complaints except - EENT Eyes: As Per HPI Ears: As Per HPI Nose/Mouth/Throat: As Per HPI - Cardiovascular Cardiovascular: As Per HPI - Respiratory Respiratory: As Per HPI - Gastrointestinal Gastrointestinal: As Per HPI - Genitourinary Genitourinary: As Per HPI - Musculoskeletal Musculoskeletal: As Par HPI - Neurological Neurological: As Per HPI Critical Care Progress Note - Nutrition Nutrition: Nutrition Category Date Time Status Heart Healthy Diet [DIET] Diets 08/19/18 Lunch Active Assessment/Plan - Assessment and Plan (Free Text) Assessment: Patient is a 68 year old female with past medical history of HTN presenting with chief complaint of chest pain that began approximately 4 days ago, was found to have severe bradycardia with HR in 40s and elevated troponins, now admitted to ICU for workup and management of NSTEMI. Patient is status-post TVP on 08/19. Currently she has TVP. On 08/21 Some adjustments were made to the rate by cardiology. Patient is s/p EPS studies at [facility] with Dr. Waterman. TVP removed 08/24. Plan: CV: - Currently hemodynamically stable, no pressors required at this time - Cardiology Dr. Degroot consulted. Appreciate recs. * S/P TVP at [facility] with Dr. Waterman on 08/19; removed today 08/24 * S/P EP studies on 08/23 * Discontinued: plavix, lovenox, lopressor * Continue ASA 81mg PO daily Crestor 20mg PO HS * Start Eliquis 2.5mg BID tonight - ECHO shows LVEF 65-70%, discontinuity of interatrial septum suggestive of ASD - s/p cardiac cath, proximal RCA 100% occluded, patent LAD, left circumflex patent - Discontinue Heparin 25,000 in 250ml IV 8 units/kg/hr Pulm: - CXR from this AM shows no active disease - Nasal cannula - Maintain SpO2>92% Neuro: - AAOx3 - Maintain normothermia GI: - HHD - Pepcid 20 mg IV daily Renal: - ARF resolved with IVF - Nephrology consulted (Dr. Kaplan) Recs appreciated. - Monitor I and O - IVF discontinued Endo: - Maintain euglycemia Heme: - Monitor H/H ID: - Afebrile, leukocytosis resolved - No active issues Of note, patient complained of generalized rash. Solumedrol 125mg IV ONCE was administered. Benadryl 20mg IV ONCE was given. PPX: Pepcid 20 mg IV daily, SCDs Dispo: Patient is to be discharged to home on the following meds: * ASA 81mg PO daily * Eliquis 2.5mg PO BID * Crestor 20mg PO HS * Patient is to follow up with Dr. Degroot office in 2-3 weeks. Patient seen and case discussed in detail with Dr. Berhane Paige PGY1 <Jose Last S - Last Filed: 08/24/18 18:06> CCU Subjective - Physician Review Critical Care Time Spent (in minutes): 30 CCU Objective - Vital Signs / Intake & Output Vital Signs (Last 4 hours): Vital Signs Pulse Resp BP Pulse Ox 08/24/18 17:11 53 L 15 112/40 L 100 08/24/18 16:11 49 L 12 112/41 L 100 08/24/18 15:11 53 L 12 95/47 L 100 08/24/18 14:11 54 L 11 L 116/41 L Intake and Output (Last 8hrs): Intake & Output 08/24/18 08/24/18 08/24/18 06:59 14:59 22:59 Intake Total 100 350 150 Output Total 350 550 250 Balance -250 -200 -100 Weight 119 lb Intake: Intake, IV Amount 0 Right Wrist 0 Oral 100 350 150 Output: Urine 350 550 250 Urine, Voided 350 550 250 Other: # Voids Urine, Voided 1 1 1 # Bowel Movements 1 - Medications Active Medications: Active Medications Generic Name Dose Route Start Last Admin Trade Name Freq PRN Reason Stop Dose Admin Apixaban 2.5 mg 08/24/18 20:00 Eliquis PO BID SARAH Aspirin 81 mg 08/18/18 10:00 08/24/18 09:22 Aspirin Chewable PO 81 mg DAILY SARAH Administration Diphenhydramine HCl 25 mg 08/22/18 17:16 08/24/18 17:32 Benadryl PO 25 mg Q6 PRN Administration Allergy symptoms Docusate Sodium 100 mg 08/21/18 10:00 08/24/18 17:31 Colace PO 100 mg TID SARAH Administration Famotidine 20 mg 08/23/18 10:00 08/24/18 09:22 Pepcid PO 20 mg DAILY SARAH Administration Lactulose 20 gm 08/21/18 09:24 Enulose PO HS PRN Constipation Rosuvastatin Calcium 20 mg 08/17/18 22:00 08/23/18 22:56 Crestor PO 20 mg HS SARAH Administration Sennosides 8.6 mg 08/21/18 10:00 08/24/18 09:23 Senokot Tab PO 8.6 mg DAILY SARAH Administration - Patient Studies Lab Studies: Lab Studies 08/24/18 08/24/18 Range/Units 08:24 08:24 WBC 9.5 (4.8-10.8) K/uL RBC 3.27 L (3.80-5.20) Mil/uL Hgb 11.0 (11.0-16.0) g/dL Hct 31.6 L (34.0-47.0) % MCV 96.6 (81.0-99.0) fL MCH 33.7 H (27.0-31.0) pg MCHC 34.8 (33.0-37.0) g/dL RDW 12.6 (11.5-14.5) % Plt Count 340 (130-400) K/uL MPV 8.0 (7.2-11.7) fL Neut % (Auto) 76.0 H (50.0-75.0) % Lymph % (Auto) 12.5 L (20.0-40.0) % [place] % (Auto) 8.5 (0.0-10.0) % Eos % (Auto) 2.5 (0.0-4.0) % Baso % (Auto) 0.5 (0.0-2.0) % Neut # (Auto) 7.3 H (1.8-7.0) K/uL Lymph # (Auto) 1.2 (1.0-4.3) K/uL [place] # (Auto) 0.8 (0.0-0.8) K/uL Eos # (Auto) 0.2 (0.0-0.7) K/uL Baso # (Auto) 0.0 (0.0-0.2) K/uL Sodium 143 (132-148) mmol/L Potassium 4.9 (3.6-5.2) mmol/L Chloride 108 H (98-107) mmol/L Carbon Dioxide 25 (22-30) mmol/L Anion Gap 15 (10-20) BUN 28 H (7-17) mg/dL Creatinine 0.9 (0.7-1.2) mg/dL Est GFR ( Amer) > 60 Est GFR (Non-Af Amer) > 60 Random Glucose 93 (65-105) mg/dL Calcium 9.4 (8.6-10.4) mg/dl Phosphorus 4.3 (2.5-4.5) mg/dL Magnesium 2.1 (1.6-2.3) mg/dL Total Bilirubin 0.4 (0.2-1.3) mg/dL AST 17 (14-36) U/L ALT 26 (9-52) U/L Alkaline Phosphatase 97 (38-126) U/L Total Protein 6.5 (6.3-8.3) g/dL Albumin 3.4 L D (3.5-5.0) g/dL Globulin 3.0 (2.2-3.9) gm/dL Albumin/Globulin Ratio 1.1 (1.0-2.1) Laboratory Results - last 24 hr 08/24/18 08/24/18 08:24 08:24 WBC 9.5 RBC 3.27 L Hgb 11.0 Hct 31.6 L MCV 96.6 MCH 33.7 H MCHC 34.8 RDW 12.6 Plt Count 340 MPV 8.0 Neut % (Auto) 76.0 H Lymph % (Auto) 12.5 L [place] % (Auto) 8.5 Eos % (Auto) 2.5 Baso % (Auto) 0.5 Neut # (Auto) 7.3 H Lymph # (Auto) 1.2 [place] # (Auto) 0.8 Eos # (Auto) 0.2 Baso # (Auto) 0.0 Sodium 143 Potassium 4.9 Chloride 108 H Carbon Dioxide 25 Anion Gap 15 BUN 28 H Creatinine 0.9 Est GFR ( Amer) > 60 Est GFR (Non-Af Amer) > 60 Random Glucose 93 Calcium 9.4 Phosphorus 4.3 Magnesium 2.1 Total Bilirubin 0.4 AST 17 ALT 26 Alkaline Phosphatase 97 Total Protein 6.5 Albumin 3.4 L D Globulin 3.0 Albumin/Globulin Ratio 1.1 Critical Care Progress Note - Nutrition Nutrition: Nutrition Category Date Time Status Heart Healthy Diet [DIET] Diets 08/19/18 Lunch Active Attending/Attestation - Attestation I have personally seen and examined this patient.: Yes I have fully participated in the care of the patient.: Yes I have reviewed all pertinent clinical information: Yes Notes (Text): 08/24/18 18:05 patient seen and examined in the intensive care unit. Status post EPS study Continue present treatment Further plan as per cardiology
--- NOTE | 2018-08-24 18:09 | CP.PCM.PN ---
Subjective - Date & Time of Evaluation Date of Evaluation: 08/24/18 Time of Evaluation: 15:30 - Subjective Subjective: Seen and examined Patient is off TVP,HR in 5o ies Has rash ,mostly on her thigh and lower abdomen, Patient denies discomfort [place] [facility] [place].Tolerated the procedure Normal EP study.Doesn't need a pace maker Objective - Vital Signs/Intake and Output Vital Signs (last 24 hours): Temp Pulse Resp BP Pulse Ox 97.7 F 53 L 15 112/40 L 100 08/24/18 13:00 08/24/18 17:11 08/24/18 17:11 08/24/18 17:11 08/24/18 17:11 Intake and Output: 08/24/18 08/24/18 06:59 18:59 Intake Total 100 500 Output Total 350 800 Balance -250 -300 - Medications Medications: Current Medications Apixaban (Eliquis) 2.5 mg PO BID [facility] Aspirin (Aspirin Chewable) 81 mg PO DAILY [facility] Last Admin: 08/24/18 09:22 Dose: 81 mg Diphenhydramine HCl (Benadryl) 25 mg PO Q6 PRN PRN Reason: Allergy symptoms Last Admin: 08/24/18 17:32 Dose: 25 mg Docusate Sodium (Colace) 100 mg PO TID [facility] Last Admin: 08/24/18 17:31 Dose: 100 mg Famotidine (Pepcid) 20 mg PO DAILY [facility] Last Admin: 08/24/18 09:22 Dose: 20 mg Lactulose (Enulose) 20 gm PO HS PRN PRN Reason: Constipation Rosuvastatin Calcium (Crestor) 20 mg PO HS [facility] Last Admin: 08/23/18 22:56 Dose: 20 mg Sennosides (Senokot Tab) 8.6 mg PO DAILY [facility] Last Admin: 08/24/18 09:23 Dose: 8.6 mg - Labs Labs: 08/24/18 08:24 08/24/18 08:24 PT 11.7 SECONDS (9.7-12.2) 08/17/18 11:17 INR 1.1 08/17/18 11:17 APTT 39 SECONDS (21-34) H D 08/23/18 14:17 - Constitutional Appears: No Acute Distress - Head Exam Head Exam: NORMAL INSPECTION - Eye Exam Eye Exam: Normal appearance - ENT Exam ENT Exam: Mucous Membranes Moist - Neck Exam Neck Exam: Full ROM - Respiratory Exam Respiratory Exam: Clear to Ausculation Bilateral, NORMAL BREATHING PATTERN - Cardiovascular Exam Cardiovascular Exam: REGULAR RHYTHM - GI/Abdominal Exam GI & Abdominal Exam: Soft, Normal Bowel Sounds - Extremities Exam Extremities Exam: Full ROM - Back Exam Back Exam: NORMAL INSPECTION - Neurological Exam Neurological Exam: Awake, Oriented x3 - Psychiatric Exam Psychiatric exam: Normal Mood - Skin Skin Exam: Dry Assessment and Plan - Assessment and Plan (Free Text) Plan: 1. Sick sinus,Tachybrady syndrome s/p EP study yesterday,normal EP study Patient had TVP on 08/19. Currently off TVP sinus rhythm rate 50ies patient is asymptomatic we will follow with Dr Degroot 2. Rash Denies any drug allergy or food allergy Unlikely due to her current meds,Possible contrast induced 2 NSTEMI- Acute OK We will continue ASA, statin.now on Eliquis for afib,plavix d/kary s/p PCI on 08/19 The PCI was not successful, remains on medical management at this moment. follow needleworker recommendation 3.Atrial fibrillation/newonset Eliquis 4 Acute vs chronic kidney disease -Resolved nephrology follow up appreciated 3 Hx of smoking 08/17: smoking since age 13 or 14 dvt prophy is on heparin GI on pepcid
--- NOTE | 2018-08-24 19:57 | CARD ---
APPROVED REPORT Date of service: 08/17/2018 EKG Measurement Heart [id number] <Conclusion> Junctional rhythm Abnormal ECG
--- NOTE | 2018-08-24 22:34 | CP.PCM.PN ---
Subjective - Date & Time of Evaluation Date of Evaluation: 08/24/18 Time of Evaluation: 19:20 - Subjective Subjective: Patient seen and evaluated Denies chest pain and dyspnea Physical Examination - Constitutional Appears: No Acute Distress - Head Exam Head Exam: NORMAL INSPECTION - Eye Exam Eye Exam: Normal appearance - ENT Exam ENT Exam: Mucous Membranes Moist - Neck Exam Neck Exam: Full ROM - Respiratory Exam Respiratory Exam: Clear to Ausculation Bilateral, NORMAL BREATHING PATTERN - Cardiovascular Exam Cardiovascular Exam: REGULAR RHYTHM - GI/Abdominal Exam GI & Abdominal Exam: Soft, Normal Bowel Sounds - Extremities Exam Extremities Exam: Full ROM - Back Exam Back Exam: NORMAL INSPECTION - Neurological Exam Neurological Exam: Awake, Oriented x3 - Psychiatric Exam Psychiatric exam: Normal Mood - Skin Skin Exam: Dry Assessment and Plan - Assessment and Plan (Free Text) Plan: 1. Sick sinus,Tachybrady syndrome s/p EP study yesterday,normal EP study Patient had TVP on 08/19. Currently off TVP sinus rhythm rate 50ies patient is asymptomatic we will follow with Dr Degroot 2. Rash Denies any drug allergy or food allergy Unlikely due to her current meds,Possible contrast induced 2 NSTEMI- Acute [place] We will continue ASA, statin.now on Eliquis for afib,plavix d/kary s/p PCI on 08/19 The PCI was not successful, remains on medical management at this moment. 3.Atrial fibrillation/newonset Eliquis 4 Acute vs chronic kidney disease -Resolved nephrology follow up appreciated 3 Hx of smoking 08/17: smoking since age 13 or 14 dvt prophy is on heparin GI on pepcid Possible d/c tomorrow Eliquis 2.5 po bid ASA 81 daily plus other appropriate meds F/U Cardiology in 3-4 weeks Objective - Vital Signs/Intake and Output Vital Signs (last 24 hours): Temp Pulse Resp BP Pulse Ox 97.6 F 55 L 12 61/42 L 100 08/24/18 16:00 08/24/18 20:13 08/24/18 20:13 08/24/18 20:13 08/24/18 20:13 Intake and Output: 08/24/18 08/25/18 18:59 06:59 Intake Total 500 0 Output Total 800 300 Balance -300 -300 - Medications Medications: Current Medications Apixaban (Eliquis) 2.5 mg PO BID [facility] Last Admin: 08/24/18 19:57 Dose: 2.5 mg Aspirin (Aspirin Chewable) 81 mg PO DAILY [facility] Last Admin: 08/24/18 09:22 Dose: 81 mg Diphenhydramine HCl (Benadryl) 25 mg PO Q6 PRN PRN Reason: Allergy symptoms Last Admin: 08/24/18 17:32 Dose: 25 mg Docusate Sodium (Colace) 100 mg PO TID [facility] Last Admin: 08/24/18 17:31 Dose: 100 mg Famotidine (Pepcid) 20 mg PO DAILY [facility] Last Admin: 08/24/18 09:22 Dose: 20 mg Lactulose (Enulose) 20 gm PO HS PRN PRN Reason: Constipation Rosuvastatin Calcium (Crestor) 20 mg PO HS [facility] Last Admin: 08/24/18 21:22 Dose: 20 mg Sennosides (Senokot Tab) 8.6 mg PO DAILY [facility] Last Admin: 08/24/18 09:23 Dose: 8.6 mg - Labs Labs: 08/24/18 08:24 08/24/18 08:24 PT 11.7 SECONDS (9.7-12.2) 08/17/18 11:17 INR 1.1 08/17/18 11:17 APTT 39 SECONDS (21-34) H D 08/23/18 14:17
[2018-08-25 06:56] LABS: ALB/GLOB RATIO 1.1 (1.0-2.1); ALBUMIN 2.8 g/dL (3.5-5.0); ALT/SGPT 31 U/L (9-52); AST/SGOT 20 U/L (14-36); BLOOD UREA NITROGEN 27 mg/dL (7-17); CALCIUM 8.6 mg/dl (8.6-10.4); GFR NON-AFRICAN AMERICAN > 60
[2018-08-25 07:00] LABS: BASO % 0.2 % (0.0-2.0); EOS # 0.5 K/uL (0.0-0.7); EOS % 6.8 % (0.0-4.0); HEMOGLOBIN 9.1 g/dL (11.0-16.0); LYMPH # 1.9 K/uL (1.0-4.3); LYMPH % 25.4 % (20.0-40.0); MEAN CELL VOLUME 96.3 fL (81.0-99.0); MEAN CORPUSCULAR HEMOGLOBIN 33.1 pg (27.0-31.0); MEAN CORPUSCULAR HGB CONC 34.4 g/dL (33.0-37.0); MEAN PLATELET VOLUME 7.9 fL (7.2-11.7); MONO # 0.7 K/uL (0.0-0.8); MONO % 9.1 % (0.0-10.0); NEUT # 4.5 K/uL (1.8-7.0); NEUT % 58.5 % (50.0-75.0); RBC 2.76 Mil/uL (3.80-5.20); RED CELL DISTRIBUTION WIDTH 12.9 % (11.5-14.5); WHITE BLOOD COUNT 7.6 K/uL (4.8-10.8)
--- NOTE | 2018-08-25 08:50 | CP.PCM.PN ---
Subjective - Date & Time of Evaluation Date of Evaluation: 08/25/18 Time of Evaluation: 08:48 - Subjective Subjective: Feels better No dyspnea, CPs LE rash stable WES resolved Lytes acceptable HTN controlled No more tachycardia Objective - Vital Signs/Intake and Output Vital Signs (last 24 hours): Temp Pulse Resp BP Pulse Ox 98.2 F 58 L 18 120/60 100 08/25/18 05:00 08/25/18 08:12 08/25/18 08:12 08/25/18 08:12 08/25/18 08:00 Intake and Output: 08/25/18 08/25/18 06:59 18:59 Intake Total 200 0 Output Total 800 520 Balance -600 -520 - Medications Medications: Current Medications Apixaban (Eliquis) 2.5 mg PO BID [facility] Last Admin: 08/24/18 19:57 Dose: 2.5 mg Aspirin (Aspirin Chewable) 81 mg PO DAILY [facility] Last Admin: 08/24/18 09:22 Dose: 81 mg Diphenhydramine HCl (Benadryl) 25 mg PO Q6 PRN PRN Reason: Allergy symptoms Last Admin: 08/25/18 00:08 Dose: 25 mg Docusate Sodium (Colace) 100 mg PO TID [facility] Last Admin: 08/24/18 17:31 Dose: 100 mg Famotidine (Pepcid) 20 mg PO DAILY [facility] Last Admin: 08/24/18 09:22 Dose: 20 mg Lactulose (Enulose) 20 gm PO HS PRN PRN Reason: Constipation Rosuvastatin Calcium (Crestor) 20 mg PO HS [facility] Last Admin: 08/24/18 21:22 Dose: 20 mg Sennosides (Senokot Tab) 8.6 mg PO DAILY [facility] Last Admin: 08/24/18 09:23 Dose: 8.6 mg - Labs Labs: 08/25/18 06:35 08/25/18 06:35 PT 11.7 SECONDS (9.7-12.2) 08/17/18 11:17 INR 1.1 08/17/18 11:17 APTT 39 SECONDS (21-34) H D 08/23/18 14:17 - Constitutional Appears: No Acute Distress, Chronically Ill - Head Exam Head Exam: ATRAUMATIC, NORMAL INSPECTION - Eye Exam Eye Exam: EOMI, Normal appearance - Neck Exam Neck Exam: Normal Inspection. absent: Tenderness - Respiratory Exam Respiratory Exam: Clear to Ausculation Bilateral, NORMAL BREATHING PATTERN - Cardiovascular Exam Cardiovascular Exam: Bradycardia, +S1 - GI/Abdominal Exam GI & Abdominal Exam: Soft. absent: Tenderness - Extremities Exam Extremities Exam: Normal Inspection. absent: Tenderness - Neurological Exam Neurological Exam: Awake, CN II-XII Intact - Skin Skin Exam: Dry, Warm Assessment and Plan (1) Acute renal failure Status: Resolved (2) Bradycardia Status: Acute (3) Hypertension Status: Acute (4) NSTEMI (non-ST elevated myocardial infarction) Status: Acute - Assessment and Plan (Free Text) Plan: Monitor renal function lytes periodically Cardiac plans
--- NOTE | 2018-08-25 13:13 | CP.PCM.DIS ---
Provider - Provider Date of Admission: 08/17/18 13:19 Attending physician: Victor Hugo Glass DO Time Spent in preparation of Discharge (in minutes): 35 Hospital Course - Lab Results Lab Results: Micro Results 08/17/18 16:41 Nose MRSA Culture (Admit) - Final MRSA NOT DETECTED Most Recent Lab Values WBC 7.6 K/uL (4.8-10.8) 08/25/18 06:35 RBC 2.76 Mil/uL (3.80-5.20) L 08/25/18 06:35 Hgb 9.1 g/dL (11.0-16.0) L 08/25/18 06:35 Hct 26.6 % (34.0-47.0) L 08/25/18 06:35 MCV 96.3 fL (81.0-99.0) 08/25/18 06:35 MCH 33.1 pg (27.0-31.0) H 08/25/18 06:35 MCHC 34.4 g/dL (33.0-37.0) 08/25/18 06:35 RDW 12.9 % (11.5-14.5) 08/25/18 06:35 Plt Count 316 K/uL (130-400) 08/25/18 06:35 MPV 7.9 fL (7.2-11.7) 08/25/18 06:35 Neut % (Auto) 58.5 % (50.0-75.0) 08/25/18 06:35 Lymph % (Auto) 25.4 % (20.0-40.0) 08/25/18 06:35 [place] % (Auto) 9.1 % (0.0-10.0) 08/25/18 06:35 Eos % (Auto) 6.8 % (0.0-4.0) H 08/25/18 06:35 Baso % (Auto) 0.2 % (0.0-2.0) 08/25/18 06:35 Neut # (Auto) 4.5 K/uL (1.8-7.0) 08/25/18 06:35 Lymph # (Auto) 1.9 K/uL (1.0-4.3) 08/25/18 06:35 [place] # (Auto) 0.7 K/uL (0.0-0.8) 08/25/18 06:35 Eos # (Auto) 0.5 K/uL (0.0-0.7) 08/25/18 06:35 Baso # (Auto) 0.0 K/uL (0.0-0.2) 08/25/18 06:35 Neutrophils % (Manual) 90 % (50-75) H 08/17/18 11:17 Lymphocytes % (Manual) 3 % (20-40) L 08/17/18 11:17 Monocytes % (Manual) 6 % (0-10) 08/17/18 11:17 Eosinophils % (Manual) 1 % (0-4) 08/17/18 11:17 Platelet Estimate Normal (NORMAL) 08/17/18 11:17 RBC Morphology Normal 08/17/18 11:17 PT 11.7 SECONDS (9.7-12.2) 08/17/18 11:17 INR 1.1 08/17/18 11:17 APTT 39 SECONDS (21-34) H D 08/23/18 14:17 Sodium 141 mmol/L (132-148) 08/25/18 06:35 Potassium 4.6 mmol/L (3.6-5.2) 08/25/18 06:35 Chloride 109 mmol/L (98-107) H 08/25/18 06:35 Carbon Dioxide 26 mmol/L (22-30) 08/25/18 06:35 Anion Gap 11 (10-20) 08/25/18 06:35 BUN 27 mg/dL (7-17) H 08/25/18 06:35 Creatinine 0.8 mg/dL (0.7-1.2) 08/25/18 06:35 Est GFR ( Amer) > 60 08/25/18 06:35 Est GFR (Non-Af Amer) > 60 08/25/18 06:35 POC Glucose (mg/dL) 90 mg/dL (65-110) 08/19/18 05:58 Random Glucose 79 mg/dL (65-105) 08/25/18 06:35 Calcium 8.6 mg/dl (8.6-10.4) 08/25/18 06:35 Phosphorus 4.3 mg/dL (2.5-4.5) 08/24/18 08:24 Magnesium 2.1 mg/dL (1.6-2.3) 08/24/18 08:24 Total Bilirubin 0.4 mg/dL (0.2-1.3) 08/25/18 06:35 AST 20 U/L (14-36) 08/25/18 06:35 ALT 31 U/L (9-52) 08/25/18 06:35 Alkaline Phosphatase 79 U/L (38-126) 08/25/18 06:35 Total Creatine Kinase 92 U/L (30-135) 08/18/18 06:11 CK-MB (Mass) 3.71 ng/mL (0.0-3.38) H 08/18/18 06:11 Troponin I 5.0900 ng/mL (0.00-0.120) H* 08/18/18 06:11 NT-Pro-B Natriuret Pep 8310 pg/mL (0-900) H 08/17/18 11:17 Total Protein 5.3 g/dL (6.3-8.3) L 08/25/18 06:35 Albumin 2.8 g/dL (3.5-5.0) L 08/25/18 06:35 Globulin 2.5 gm/dL (2.2-3.9) 08/25/18 06:35 Albumin/Globulin Ratio 1.1 (1.0-2.1) 08/25/18 06:35 Triglycerides 127 mg/dL (0-149) 08/17/18 11:17 Cholesterol 152 mg/dL (0-199) 08/17/18 11:17 LDL Cholesterol Direct 69 mg/dL (0-129) 08/17/18 11:17 HDL Cholesterol 57 mg/dL (30-70) 08/17/18 11:17 Free T3 pg/mL 2.71 pg/mL (2.77-5.27) L 08/18/18 06:11 TSH 3rd Generation 6.70 mIU/L (0.46-4.68) H 08/20/18 10:15 Urine Color Lizzie (YELLOW) 08/17/18 11:54 Urine Clarity Hazy (Clear) 08/17/18 11:54 Urine pH 5.0 (5.0-8.0) 08/17/18 11:54 Ur Specific [place] 1.023 (1.003-1.030) 08/17/18 11:54 Urine Protein 1+ mg/dL (NEGATIVE) H 08/17/18 11:54 Urine Glucose (UA) Normal mg/dL (Normal) 08/17/18 11:54 Urine Ketones Negative mg/dL (NEGATIVE) 08/17/18 11:54 Urine Blood 1+ (NEGATIVE) H 08/17/18 11:54 Urine Nitrate Negative (NEGATIVE) 08/17/18 11:54 Urine Bilirubin Negative (NEGATIVE) 08/17/18 11:54 Urine Urobilinogen Normal mg/dL (0.2-1.0) 08/17/18 11:54 Ur Leukocyte Esterase Neg Yady/uL (Negative) 08/17/18 11:54 Urine WBC (Auto) 2 /hpf (0-5) 08/17/18 11:54 Urine RBC (Auto) 2 /hpf (0-3) 08/17/18 11:54 Ur Squamous Epith Cells 47 /hpf (0-5) H 08/17/18 11:54 Urine Bacteria Rare (<OCC) 08/17/18 11:54 Ur Random Creatinine 131.4 mg/dL 08/18/18 20:35 U Random Total Protein 12.0 mg/dL (0.0-12.0) 08/18/18 20:35 Urine Opiates Screen Negative (NEGATIVE) 08/17/18 15:22 Urine Methadone Screen Negative (NEGATIVE) 08/17/18 15:22 Ur Barbiturates Screen Negative (NEGATIVE) 08/17/18 15:22 Ur Phencyclidine Scrn Negative (NEGATIVE) 08/17/18 15:22 Ur Amphetamines Screen Negative (NEGATIVE) 08/17/18 15:22 U Benzodiazepines Scrn Negative (NEGATIVE) 08/17/18 15:22 U Oth Cocaine Metabols Negative (NEGATIVE) 08/17/18 15:22 U Cannabinoids Screen Negative (NEGATIVE) 08/17/18 15:22 - Hospital Course Hospital Course: This is a 68 yo Female who comes to the hospital with the chief complaint of chest pain, lightheadedness, and dizziness. The chest pain began on Wednesday08/13/2018 and by Wednesday she was having episodes of lightheadedness and dizziness. She was seen by her primary care on 08/16/2018 where she had a 12- lead EKG showing very significant bradycardia. She was urged to go to the emergency room and she came today to [facility] and the EKG was in the mid 40s sinus bradycardia. There was significant T wave flattening noted. There was no ST depression or elevation. Patient had PCI on 08/19 The PCI was not successful. Patient was in ICU with transvenous pacer starting from 08/19/18. During her stay in ICU she developed atrial fibrillation with RVR. Started on heparin and the switched to Eliquis. Patient had EP study by Dr Waterman [place] [facility] [place]. It was negative and her TVP was discontinued/no need for pace maker. patient was asymptomatic and her HR is in 50ies since yesterday. she will be discharged on Eliquis,crestor and asprin as recommended by Dr Degroot. Dr Degroot asked to follow him in 3 weeks at his office patient was given all instruction including stop her home meds and starting current meds. Explained about risk of bleeding on Eliquis Discharge Exam - Head Exam Head Exam: ATRAUMATIC, NORMAL INSPECTION - Eye Exam Eye Exam: Normal appearance - ENT Exam ENT Exam: Mucous Membranes Moist - Neck Exam Neck exam: Full Rom - Respiratory Exam Respiratory Exam: Clear to PA & Lateral, NORMAL BREATHING PATTERN - Cardiovascular Exam Cardiovascular Exam: Bradycardia, REGULAR RHYTHM - GI/Abdominal Exam GI & Abdominal Exam: Diminished Bowel Sounds, Normal Bowel Sounds - Extremities Exam Extremities exam: full ROM - Back Exam Back exam: NORMAL INSPECTION - Neurological Exam Neurological exam: Alert, Oriented x3 - Psychiatric Exam Psychiatric exam: Normal Mood - Skin Skin Exam: Dry Discharge Plan - Discharge Medications Prescriptions: Apixaban [Eliquis] 2.5 mg PO BID 30 Days #60 tab Aspirin [Aspirin Chewable] 81 mg PO DAILY 30 Days #30 chew Rosuvastatin Calcium [Crestor] 20 mg PO HS #30 tablet - Follow Up Plan Condition: FAIR Disposition: HOME/ ROUTINE Patient education suggested?: Yes Additional Instructions: Please stop taking all your home medications
[2018-08-25 15:40] VITALS: BP 147/127; PULSE 78; RESP 23
[2018-08-25 15:41] VITALS: TEMP 98.7
--- NOTE | 2018-08-26 22:41 | CP.PCM.CON ---
History of Present Illness - History of Present Illness History of Present Illness: Cardiac EP consult\ Re: bradycardia Seen interviewed and examined at bedside Ms. Catalan presented with a chest pain syndrome and dizziness; She was seen by her PMD Dr. beasley and sent to the ER as the heart rates were very slow Post admission she was noted to have heart rates of 40 and elevated serum troponins She had a cardiac catheterization which showed occluded right coronary artery A temporary transvenous pacemaker was placed She denied prior symptoms of dizziness or syncope She is active and takes care of herself Past medical history: systemic hypertension Past surgery: none Smokes; denied alcohol or drug abuse Exam No distress Sitting in a chair Transvenous pacemaker catheter in the right internal jugular vein Lungs clear No S3 No edema; Alert oriented x 3 EKG: Admision: Junctional rhythm @ 40 with retrograde P waves Underlying rhythm sinus currentluy @ 70 beats per minute Labs noted Telemetry: reviewed Echo: normal LV systolic function Past Patient History - Past Medical History & Family History Past Medical History?: Yes - Past Social History Smoking Status: Heavy Smoker > 10 Cigarettes Daily - CARDIAC Hx Hypertension: Yes - PULMONARY Hx Respiratory Disorders: No - NEUROLOGICAL Hx Neurological Disorder: No - HEENT Hx HEENT Problems: No - RENAL Hx Chronic Kidney Disease: No - ENDOCRINE/METABOLIC Hx Endocrine Disorders: No - HEMATOLOGICAL/ONCOLOGICAL Hx Blood Disorders: No - INTEGUMENTARY Hx Dermatological Problems: No - MUSCULOSKELETAL/RHEUMATOLOGICAL Hx Musculoskeletal Disorders: No - GASTROINTESTINAL Hx Gastrointestinal Disorders: No - GENITOURINARY/GYNECOLOGICAL Hx Genitourinary Disorders: No - PSYCHIATRIC Hx Substance Use: No - SURGICAL HISTORY Hx Surgeries: No - ANESTHESIA Hx Anesthesia: No Meds Home Medications: Home Medication List Medication Instructions Recorded Confirmed Type Apixaban [Eliquis] 2.5 mg PO BID 30 Days #60 tab 08/25/18 Rx Aspirin [Aspirin Chewable] 81 mg PO DAILY 30 Days #30 chew 08/25/18 Rx Rosuvastatin Calcium [Crestor] 20 mg PO HS #30 tablet 08/25/18 Rx Allergies/Adverse Reactions: Allergies Allergy/AdvReac Type Severity Reaction Status Date / Time No Known Allergies Allergy Verified 08/17/18 10:46 Results - Vital Signs Recent Vital Signs: Last Vital Signs Temp 98.7 F 08/25/18 09:00 Pulse 78 08/25/18 13:00 Resp 23 10/25/18 13:00 BP 147/127 H 10/25/18 12:12 Pulse Ox 100 08/25/18 08:00 - Labs Result Diagrams: 08/25/18 06:35 08/25/18 06:35 Assessment & Plan - Assessment and Plan (Free Text) Assessment: Ms. Catalan presented with dizziness slow junctional rhythm in a setting of occlusive right coronary artery disease Given the transient conduction abnormality and return to sinus and narrow QRS and normal LV systolic function forebodes a good prognosis If beta blockers are indicated it may be prudent to obtain a forma conduction study DW patient procedures risks and options; she verbalized understanding and assents Possible transfer to [facility] [place] on Wednesday for EPS
== END 2018-08-25 16:51 | disposition home or self-care (01) | DRG 281 ==
LOC: C.ER 10:23 → C.9E 13:19 → C.9I 14:48
PROVIDERS: ADMIT Hospitalist; ATTEND Hospitalist
PROC: 4A023N7 Measurement of Cardiac Sampling and Pressure, Left Heart, Percutaneous Approach (ICD-10-PCS; principal; 2018-08-17)
PROC: B2111ZZ Fluoroscopy of Multiple Coronary Arteries using Low Osmolar Contrast (ICD-10-PCS; 2018-08-17)
PROC: 5A1223Z Performance of Cardiac Pacing, Continuous (ICD-10-PCS; 2018-08-17)
DX: I21.4 Non-ST elevation (NSTEMI) myocardial infarction (principal); N17.9 Acute kidney failure, unspecified; I25.10 Atherosclerotic heart disease of native coronary artery without angina pectoris; I25.82 Chronic total occlusion of coronary artery; I48.91 Unspecified atrial fibrillation; I49.5 Sick sinus syndrome; J44.9 Chronic obstructive pulmonary disease, unspecified; N18.9 Chronic kidney disease, unspecified; I12.9 Hypertensive chronic kidney disease with stage 1 through stage 4 chronic kidney disease, or unspecified chronic kidney disease; E78.5 Hyperlipidemia, unspecified; F17.200 Nicotine dependence, unspecified, uncomplicated; L27.0 Generalized skin eruption due to drugs and medicaments taken internally; Z53.09 Procedure and treatment not carried out because of other contraindication

== ENCOUNTER 2018-11-16 08:56 | Outpatient (CLI) | payer MEDICARE | END 2018-11-16 08:57 | disposition home or self-care (01) | LOC: C.CTH 08:56 | DX: I70.213 Atherosclerosis of native arteries of extremities with intermittent claudication, bilateral legs (principal) ==